=== PATIENT | male | born 1975 | race Caucasian/White ===

== ENCOUNTER → 2017-07-13 | Outpatient (CLI) | payer MEDICARE, MEDICAID ==
[2017-06-03 16:04] VITALS: BMI 33.3
[~2017-07-13] MED LIST: AMIT-106 PO; AMLO-1 PO; AMLO-96 PO; AMOX-559 PO; ASPI-715 PO; ASPI81TA94 PO; ATEN-1 PO; BACL-1 PO; BLOO-1511 MC; BUTA1CAP4 PO; BUTNAS NS; CLA500 PO; CLIN300C99 PO; CLON-1 PO; CLON-327 PO; CLON-329 PO; CLON0.3T35 PO; CLON1PAT20 PO; CYC10 PO; CYCL10TA29 PO; DIA5 PO; DIAZ-305 PO; DIAZ-311 PO; DIP25 PO; DIPH-740 PO; ENOX100D5 SQ; ESCI10TA8 PO; FAMC500T19 PO; FEN100TPT TD; FENT-90 TD; FURO40TA35 PO; GAB100 PO; HCTZ25 PO; HYDR-3140 PO; HYDR12.561 PO; HYDR25TA66 PO; IBU600 PO; IBU800 PO; IBUP100T52 PO; IBUP200C71 PO; IBUP600T22 PO; INDO-1 PO; INSU100I28 SQ; INSU100I30 SQ; KET10 PO; LANC-165; LANS30CA63 PO; LIDO700A25 TP; LISI-353 PO; LISI-368 PO; LISI-374 PO; LOR5 PO; METF-410 PO; METH4TAB57 PO; METH4TAB66 PO; METO-1 PO; METO-253 PO; METO-259 PO; METO25TA93 PO; METO50TA19 PO; METXR500 PO; MORS15 PO; NAPR500T75 PO; NEED-498 MC; NO RTN MEDS; OND4 PO; ONDA4TAB PO; ONDA4TAB97 PO; OXY10 PO; OXYC-823 PO; OXYC1TAB54 PO; OXYC20TA99 PO; OXYC30TA79 PO; OXYC5CAP21 PO; OXYC5TAB65 PO; PER PO; POTA20TA10; PRE20 PO; PRED20TA6 PO; PRO25 PO; PROM-110 PO; PROP20TA56 PO; RANI-324 PO; ROBC PO; STADOL IH; TAMS0.4C25 PO; TIZA2CAP3 PO; TRAM-420 PO; TRAM-627 PO; TRAZ-156 PO; VAL80 PO; WARF-18 PO; [UNRECOGNIZED DRUG - REMARK]
== END ==
LOC: LAB 15:11
DX: E11.9 Type 2 diabetes mellitus without complications (principal)
CPT/HCPCS: 36415; 82310; 82374; 82435; 82565; 82947; 84132; 84295; 84520; 84681; 85027

== ENCOUNTER 2017-12-06 15:43 | Emergency (ER) | payer MEDICARE, MEDICAID ==
[2017-06-03 16:04] VITALS: Wt 95.8 kg
[~2017-12-06 15:43] MED LIST changes: -METF-410 PO; +METF-411 PO; -RANI-324 PO; +RANI-366 PO; -WARF-18 PO; +WARF5TAB23 PO
--- NOTE | 2017-12-06 15:55 | ER Report ---
History and Physical Time Seen By MD: 15:55 Hx. of Stated Complaint: N/V X 4 DAYS HPI/ROS CHIEF COMPLAINT: Nausea, vomiting 4 days HISTORY OF PRESENT ILLNESS: 42-year-old male patient presents to emergency room with complaint of nausea and vomiting for the past 4 days. Patient states that he's felt some burning in his chest and then has had nausea with occasional vomiting. Patient states that he's not had any fevers or chills. He states he is not having any chest pain. Patient states that he has taken any medication for this. Patient states he is not had anything like this previously. REVIEW OF SYSTEMS: Respiratory: No cough, no dyspnea. Cardiovascular: No chest pain, no palpitations. Gastrointestinal: As noted above Musculoskeletal: No back pain. Allergies: Coded Allergies: diclofenac (Verified Allergy, Mild, HYPERGLYCEMIA , 12/06/17) cortisone (Verified Allergy, Unknown, 12/06/17) acetaminophen (Verified Adverse Reaction, Intermediate, MAKES HEADACHES WORSE, 11/14/16) Home Meds Active Scripts Clarithromycin (CLARITHROMYCIN) 500 Mg Tablet, 500 MG PO BID, #28 TAB Prov:KADI DICKENS [facility] 12/06/17 Amoxicillin 500 Mg Tab (AMOXICILLIN 500 MG TAB) 500 Mg Tablet, 1 TAB PO BID, # 28 TAB Prov:KADI DICKENS 12/06/17 Omeprazole (OMEPRAZOLE) 40 Mg Capsule.dr, 40 MG PO QDAY, #30 CAP Prov:KADI DICKENS [facility] 12/06/17 Ondansetron (ZOFRAN ODT) 4 Mg Tab.rapdis, 4 MG PO Q6H Y for NAUSEA/VOMITING, # 20 TAB.KWESI Prov:KADI DICKENSP 12/06/17 Insulin Lispro 100 Un/Ml Pen (HUMALOG 3 ML PEN) 100 Unit/1 Ml Insuln.pen, 3 UNIT SQ TIDAC, #3 ML Prov:ELVIS OLEARY DO 06/04/17 Lancets (Blood Lancets) 30 Gauge Each, EACH, #100 Prov:ELVIS OLEARY DO 06/04/17 Blood Sugar Diagnostic (GLUCOSE TEST STRIP) 1 Each Strip, 1 EACH MC QID, #100 STRIP Prov:ELVIS OLEARY DO 06/04/17 [employer], Insulin Disposable (INSULIN PEN NEEDLE) 1 Each Dis.needle, EACH MC QID , #100 Prov:ELVIS OLEARY DO 06/04/17 Insulin Glargine 100 Un/Ml Pen (LANTUS SOLOSTAR PEN) 100 Unit/1 Ml Insuln.pen, 20 UNIT SQ QHS, #3 ML Prov:ELVIS OLEARY DO 06/04/17 Metoprolol Succinate (METOPROLOL SUCCINATE) 50 Mg Tab.er.24h, 1 TAB PO QDAY, # 90 TAB 1 Refill Prov:MAGED BILLINGS MD 11/04/16 Reported Medications Clonidine Hcl (CLONIDINE HCL) 0.2 Mg Tablet, 0.4 MG PO DAILY Y for HTN, TAB May take a third dose of clonidine 0.4 mg daily as needed (for a total dose of 0.4 mg TID) 06/04/17 Clonidine Hcl (CLONIDINE HCL) 0.2 Mg Tablet, 0.4 MG PO BID, TAB 06/04/17 Amitriptyline Hcl (AMITRIPTYLINE HCL) 25 Mg Tablet, 50 MG PO QHS, #10 TAB 05/31/17 Oxycodone Hcl (OXYCONTIN) 20 Mg Tab.er.12h, 20 MG PO 5XD, TAB 05/31/17 Hydrochlorothiazide (HYDROCHLOROTHIAZIDE) 12.5 Mg Tablet, 1 TAB PO BID, TAB 05/31/17 Lisinopril (LISINOPRIL) 40 Mg Tablet, 40 MG PO BID, TAB 05/31/17 Tizanidine Hcl (TIZANIDINE HCL) 2 Mg Capsule, 4 MG PO four times daily, CAPSULE 03/26/17 Ibuprofen (IBUPROFEN) 600 Mg Tablet, 1 TAB PO Q6H Y for PAIN, TAB 11/14/16 Aspirin (ASPIRIN) 81 Mg Tab.chew, 81 MG PO QDAY, TAB.CHEW TAKE 1 TABLET BY MOUTH EVERY DAY 08/10/14 Past Medical/Surgical History Patient has a past medical history of migraines, [place], DVT 3, hypertension, pneumonia, COPD, herniated disc and low back, arthritis, back pain, diabetes. Patient has a surgical history of sinus surgery, shoulder surgery 2, hip replacement 2, heart catheter. Patient has a family medical history of diabetes, stroke, CAD, cancer. Hx Smoking: Yes Smoking Status: Former Smoker Exposure to Second Hand Smoke?: No Hx Substance Use Disorder: No Hx Alcohol Use: No Constitutional Vital Sign - Last 24 Hours 6/09/2012/06/17 12/06/17 12/06/17 15:46 16:00 16:15 16:30 Temp 98.9 Pulse 114 114 106 101 Resp 18 14 8 B/P (MAP) 149/112 165/135 (145) 145/119 (128) 161/108 (125) Pulse Ox 94 92 91 90 O2 Delivery Room Air 12/06/17 12/06/17 12/06/17 12/06/17 16:45 17:00 17:15 17:30 Pulse 101 100 105 106 Resp 10 13 10 6 B/P (MAP) 140/103 (115) 165/117 (133) 169/105 (126) Pulse Ox 87 91 91 90 12/06/17 12/06/17 12/06/17 17:45 18:00 18:09 Pulse 112 110 Resp 9 10 B/P (MAP) 149/122 (131) 149/88 (108) 150/127 (135) Pulse Ox 93 93 Intake and Output 12/06/17 12/06/17 12/07/17 14:59 22:59 06:59 Intake Total 1000 ml Balance 1000 ml Physical Exam General Appearance: The patient is alert, has no immediate need for airway protection and no current signs of toxicity. Respiratory: Chest is non tender, lungs are clear to auscultation. Cardiac: regular rate and rhythm Gastrointestinal: Abdomen is soft and mildly tender throughout, no masses, bowel sounds normal. Musculoskeletal: Neck: Neck is supple and non tender. Extremities have full range of motion and are non tender. Skin: No rashes or lesions. DIFFERENTIAL DIAGNOSIS: After history and physical exam differential diagnosis was considered for nausea and vomiting including but not limited to gastroenteritis, gastritis, appendicitis, and medication side effect. Medical Decision Making Data Points Result Diagram: 12/06/17 1600 12/06/17 1600 Laboratory Hematology Test 12/06/17 16:00 12/06/17 17:15 12/06/17 17:54 Red Blood Count 5.57 M/uL (4.00-5.60) Mean Corpuscular Volume 87.1 fL (80.0-96.0) Mean Corpuscular Hemoglobin 30.6 pg (26.0-33.0) Mean Corpuscular Hemoglobin Concent 35.2 g/dL (32.0-36.0) Red Cell Distribution Width 13.1 % (11.5-14.5) Mean Platelet Volume 10.4 fL (7.2-11.1) Neutrophils (%) (Auto) 53.5 % (39.4-72.5) Lymphocytes (%) (Auto) 34.8 % (17.6-49.6) Monocytes (%) (Auto) 9.6 % (4.1-12.4) Eosinophils (%) (Auto) 0.9 % (0.4-6.7) Basophils (%) (Auto) 1.2 % (0.3-1.4) Nucleated RBC Relative Count (auto) 0.1 /100WBC Neutrophils # (Auto) 6.0 K/uL (2.0-7.4) Lymphocytes # (Auto) 3.9 K/uL (1.3-3.6) Monocytes # (Auto) 1.1 K/uL (0.3-1.0) Eosinophils # (Auto) 0.1 K/uL (0.0-0.5) Basophils # (Auto) 0.1 K/uL (0.0-0.1) Nucleated RBC Absolute Count (auto) 0.02 K/uL Erythrocyte Sedimentation Rate 35 mm/HOUR (0-15) Urine Color Straw Urine Clarity Clear Urine pH 6.0 pH (4.8-9.5) Urine Specific [place] 1.030 Urine Protein Negative mg/dL (NEGATIVE) Urine Glucose (UA) 500 mg/dL (NEGATIVE) Urine Ketones 20 mg/dL (NEGATIVE) Urine Blood Negative (NEGATIVE) Urine Nitrite Negative (NEGATIVE) Urine Bilirubin Negative (NEGATIVE) Urine Urobilinogen Negative mg/dL (0.2-1.9) Urine Leukocyte Esterase Negative (NEGATIVE) Urine RBC <1 /HPF (0-2/HPF) Urine WBC 1 /HPF (0-5/HPF) Urine Squamous Epithelial Cells None /LPF (</=FEW) Urine Bacteria Negative /HPF (NONE-FEW) Urine Mucus None /HPF (NONE-FEW) Sodium Level 130 mmol/L (137-145) Potassium Level 3.6 mmol/L (3.5-5.0) Chloride Level 88 mmol/L (98-107) Carbon Dioxide Level 23 mmol/L (22-30) Blood Urea Nitrogen 26 mg/dl (9-21) Creatinine 1.00 mg/dl (0.66-1.25) Glomerular Filtration Rate Calc > 60.0 Random Glucose 509 mg/dl (75-110) Osmolality 300 mOSM/K (275-295) Calcium Level 9.8 mg/dl (8.4-10.2) Total Bilirubin 1.0 mg/dl (0.2-1.3) Aspartate Amino Transf (AST/SGOT) 35 U/L (0-35) Alanine Aminotransferase (ALT/SGPT) 18 U/L (0-56) Alkaline Phosphatase 121 U/L (0-126) Total Protein 8.1 gm/dl (6.3-8.2) Albumin 4.8 g/dl (3.5-5.0) Amylase Level 78 U/L (0-110) Lipase 59 U/L (23-300) Urine Opiates Screen Positive Urine Barbiturates Screen Negative Ur Tricyclic Antidepressants Screen Negative Urine Phencyclidine Screen Negative Urine Amphetamines Screen Negative Urine Benzodiazepines Screen Negative Urine Cocaine Screen Negative Urine Cannabinoids Screen Negative Acetone, Qualitative Negative Helicobacter pylori IgG Antibody Positive (NEGATIVE) Blood Gas Puncture Site Left radial Blood Gas Patient Temperature Unknown DEGREES Arterial Blood pH 7.44 (7.35-7.45) Arterial Blood Partial Pressure CO2 39 mmHg (32-37) Arterial Blood Partial Pressure O2 58 mmHg (60-80) Arterial Blood HCO3 26 mmol/L (20-26) Arterial Blood Oxygen Saturation 90 % (92-100) Arterial Blood Base Excess 2.0 mmol/L [place] Test Acceptable Oxygen Liters/Minute Room air Whole Blood Glucose 376 mg/DL (75-110) Chemistry Test 12/06/17 16:00 12/06/17 17:15 12/06/17 17:54 White Blood Count 11.3 k/uL (4.5-11.0) Red Blood Count 5.57 M/uL (4.00-5.60) Hemoglobin 17.1 g/dL (14.0-18.0) Hematocrit 48.5 % (42.0-52.0) Mean Corpuscular Volume 87.1 fL (80.0-96.0) Mean Corpuscular Hemoglobin 30.6 pg (26.0-33.0) Mean Corpuscular Hemoglobin Concent 35.2 g/dL (32.0-36.0) Red Cell Distribution Width 13.1 % (11.5-14.5) Platelet Count 279 K/uL (150-450) Mean Platelet Volume 10.4 fL (7.2-11.1) Neutrophils (%) (Auto) 53.5 % (39.4-72.5) Lymphocytes (%) (Auto) 34.8 % (17.6-49.6) Monocytes (%) (Auto) 9.6 % (4.1-12.4) Eosinophils (%) (Auto) 0.9 % (0.4-6.7) Basophils (%) (Auto) 1.2 % (0.3-1.4) Nucleated RBC Relative Count (auto) 0.1 /100WBC Neutrophils # (Auto) 6.0 K/uL (2.0-7.4) Lymphocytes # (Auto) 3.9 K/uL (1.3-3.6) Monocytes # (Auto) 1.1 K/uL (0.3-1.0) Eosinophils # (Auto) 0.1 K/uL (0.0-0.5) Basophils # (Auto) 0.1 K/uL (0.0-0.1) Nucleated RBC Absolute Count (auto) 0.02 K/uL Erythrocyte Sedimentation Rate 35 mm/HOUR (0-15) Urine Color Straw Urine Clarity Clear Urine pH 6.0 pH (4.8-9.5) Urine Specific [place] 1.030 Urine Protein Negative mg/dL (NEGATIVE) Urine Glucose (UA) 500 mg/dL (NEGATIVE) Urine Ketones 20 mg/dL (NEGATIVE) Urine Blood Negative (NEGATIVE) Urine Nitrite Negative (NEGATIVE) Urine Bilirubin Negative (NEGATIVE) Urine Urobilinogen Negative mg/dL (0.2-1.9) Urine Leukocyte Esterase Negative (NEGATIVE) Urine RBC <1 /HPF (0-2/HPF) Urine WBC 1 /HPF (0-5/HPF) Urine Squamous Epithelial Cells None /LPF (</=FEW) Urine Bacteria Negative /HPF (NONE-FEW) Urine Mucus None /HPF (NONE-FEW) Glomerular Filtration Rate Calc > 60.0 Osmolality 300 mOSM/K (275-295) Calcium Level 9.8 mg/dl (8.4-10.2) Total Bilirubin 1.0 mg/dl (0.2-1.3) Aspartate Amino Transf (AST/SGOT) 35 U/L (0-35) Alanine Aminotransferase (ALT/SGPT) 18 U/L (0-56) Alkaline Phosphatase 121 U/L (0-126) Total Protein 8.1 gm/dl (6.3-8.2) Albumin 4.8 g/dl (3.5-5.0) Amylase Level 78 U/L (0-110) Lipase 59 U/L (23-300) Urine Opiates Screen Positive Urine Barbiturates Screen Negative Ur Tricyclic Antidepressants Screen Negative Urine Phencyclidine Screen Negative Urine Amphetamines Screen Negative Urine Benzodiazepines Screen Negative Urine Cocaine Screen Negative Urine Cannabinoids Screen Negative Acetone, Qualitative Negative Helicobacter pylori IgG Antibody Positive (NEGATIVE) Blood Gas Puncture Site Left radial Blood Gas Patient Temperature Unknown DEGREES Arterial Blood pH 7.44 (7.35-7.45) Arterial Blood Partial Pressure CO2 39 mmHg (32-37) Arterial Blood Partial Pressure O2 58 mmHg (60-80) Arterial Blood HCO3 26 mmol/L (20-26) Arterial Blood Oxygen Saturation 90 % (92-100) Arterial Blood Base Excess 2.0 mmol/L [place] Test Acceptable Oxygen Liters/Minute Room air Whole Blood Glucose 376 mg/DL (75-110) Toxicology Test 12/06/17 16:00 Urine Opiates Screen Positive Urine Barbiturates Screen Negative Ur Tricyclic Antidepressants Screen Negative Urine Phencyclidine Screen Negative Urine Amphetamines Screen Negative Urine Benzodiazepines Screen Negative Urine Cocaine Screen Negative Urine Cannabinoids Screen Negative Acetone, Qualitative Negative Urinalysis Test 12/06/17 16:00 Urine Color Straw Urine Clarity Clear Urine pH 6.0 pH (4.8-9.5) Urine Specific [place] 1.030 Urine Protein Negative mg/dL (NEGATIVE) Urine Glucose (UA) 500 mg/dL (NEGATIVE) Urine Ketones 20 mg/dL (NEGATIVE) Urine Blood Negative (NEGATIVE) Urine Nitrite Negative (NEGATIVE) Urine Bilirubin Negative (NEGATIVE) Urine Urobilinogen Negative mg/dL (0.2-1.9) Urine Leukocyte Esterase Negative (NEGATIVE) Urine RBC <1 /HPF (0-2/HPF) Urine WBC 1 /HPF (0-5/HPF) Urine Squamous Epithelial Cells None /LPF (</=FEW) Urine Bacteria Negative /HPF (NONE-FEW) Urine Mucus None /HPF (NONE-FEW) EKG/Imaging Imaging EXAMINATION: Abdominal series HISTORY: Abdominal pain, nausea and vomiting. COMPARISON: Abdominal series from 06/02/2017. FINDINGS: PA upright view of the chest, 2 AP supine and 2 AP upright views of the abdomen are obtained. Lines/tubes: None. Bowel gas pattern: No distended loops of bowel, air fluid levels or free air. Moderate amount of stool in the colon. Soft tissues: Negative. Bony structures: Negative. Lungs: No focal consolidation or pleural effusion. Subcentimeter nodular opacity in the left upper lobe is unchanged since 2013. IMPRESSION: 1. No evidence of bowel obstruction or free air. 2. Moderate amount of stool in the colon could indicate constipation. 3. No radiographic evidence of acute cardiopulmonary disease. Report Dictated By: Zully Schulte MD at 12/06/2017 4:36 PM Report E-Signed By: Zully Schulte MD at 12/06/2017 4:42 PM ED Course/Re-evaluation ED Course Patient was admitted to exam room, history and physical were obtained. Differential diagnoses were considered. On examination patient has tenderness throughout his abdomen, bowel sounds are active. A CBC, CMP, acute abdominal x- ray was done as well as urinalysis. Patient had a normal white count, however he did have a elevated at sugar of 500. Patient was treated with a liter of normal saline, 10 units of insulin subcutaneous. On reevaluation approximately 30 minutes later patient had a blood sugar of 460s. Patient is treated with 10 additional units of insulin IV. On reevaluation patient was down in the 300s. Patient states he's feeling ready to go. We did also check a H. pylori test. That did come back positive. We'll go ahead and start the patient on triple therapy. He is to follow-up with his primary care provider. Patient was also given a prescription of Zofran. I discussed this with the patient who verbalized understanding and agreement with plan. Decision to Disposition Date: Dec 06, 2017 Decision to Disposition Time: 18:04 Depart Departure Latest Vital Signs Vital Signs Date Time Temp Pulse Resp B/P (MAP) Pulse Ox O2 Delivery O2 Flow Rate FiO2 12/06/17 18:09 150/127 (135) 12/06/17 18:00 110 10 93 12/06/17 15:46 98.9 Room Air Impression: Primary Impression: H. pylori infection Additional Impression: Hyperglycemia Condition: Improved Disposition: HOME OR SELF-CARE Referrals: MAGED BILLINGS MD (PCP) New Scripts Clarithromycin (CLARITHROMYCIN) 500 Mg Tablet 500 MG PO BID, #28 TAB Prov: KADI DICKENS 12/06/17 Amoxicillin 500 Mg Tab (AMOXICILLIN 500 MG TAB) 500 Mg Tablet 1 TAB PO BID, #28 TAB Prov: KADI DICKENS 12/06/17 Omeprazole (OMEPRAZOLE) 40 Mg Capsule.dr 40 MG PO QDAY, #30 CAP Prov: KADI DICKENS 12/06/17 Ondansetron (ZOFRAN ODT) 4 Mg Tab.rapdis 4 MG PO Q6H Y for NAUSEA/VOMITING, #20 TAB.KWESI Prov: KADI DICKENS 12/06/17 Patient Instructions: Helicobacter Pylori (ED) Additional Instructions: Increase fluid intake. Watch your blood sugar more closely. Follow up with your primary care provider in the next week. Return to the ER if condition worsens. Limit activity by pain. Try a bland diet for the next 2-3 days. Problem Qualifiers KADI DICKENS Dec 06, 2017 15:54
[2017-12-06] MEDS ORDERED: NS(*) 0.9% 1000 ML BAG 1,000 ML IV ONE (16:03)
[2017-12-06] MEDS ORDERED: ONDANSETRON 4 MG/2 ML VIAL IVP ONE (16:05)
[2017-12-06 16:12] LABS: PLATELET COUNT, AUTOMATED 279 K/uL (150-450)
[2017-12-06] MEDS ORDERED: INSU HUM REG 100 U/ML(ER ONLY) 10 ML VIAL SUBQ ONE (16:25)
--- NOTE | 2017-12-06 16:46 | RADIOLOGY IMAGING REPORT ---
FACILITY: [facility] PATIENT NAME: Tyson Ricardo : 1975 MR: [id number] V: [id number] EXAM DATE: ORDERING PHYSICIAN: KADI DICKENS TECHNOLOGIST: Location: [facility] [place] Patient: Tyson Ricardo : 1975 Visit/Account:[id number] Date of Sevice: 12/06/2017 EXAMINATION: Abdominal series HISTORY: Abdominal pain, nausea and vomiting. COMPARISON: Abdominal series from 06/02/2017. FINDINGS: PA upright view of the chest, 2 AP supine and 2 AP upright views of the abdomen are obtaine d. Lines/tubes: None. Bowel gas pattern: No distended loops of bowel, air fluid levels or free air. Moderate amount of sto ol in the colon. Soft tissues: Negative. Bony structures: Negative. Lungs: No focal consolidation or pleural effusion. Subcentimeter nodular opacity in the left upper l obe is unchanged since 2013. IMPRESSION: 1. No evidence of bowel obstruction or free air. 2. Moderate amount of stool in the colon could indicate constipation. 3. No radiographic evidence of acute cardiopulmonary disease. Report Dictated By: Zully Schulte MD at 12/06/2017 4:36 PM Report E-Signed By: Zully Schulte MD at 12/06/2017 4:42 PM WSN:[id number]
[2017-12-06] MEDS ORDERED: INSU HUM REG 100 U/ML(ER ONLY) 10 ML VIAL IV ONE (17:15)
[2017-12-06] MEDS ORDERED: OMEP40CA48 PO (18:03)
[2017-12-06] MEDS ORDERED: ONDA4TAB PO (18:03)
[2017-12-06] MEDS ORDERED: CLAR-1 PO (18:03)
[2017-12-06] MEDS ORDERED: AMOX500T10 PO (18:03)
[2017-12-06] MEDS ORDERED: ONDANSETRON 4 MG ODT TH SL ONE (18:05)
[2017-12-06] MEDS ORDERED: AMOXICILLIN 500 MG CAP PO ONE (18:05)
[2017-12-06] MEDS ORDERED: PANTOPRAZOLE SOD 40 MG TABEC PO ONE (18:05)
[2017-12-06] MEDS ORDERED: CLARITHROMYCIN 500 MG TAB PO ONE (18:05)
[2017-12-06 18:09] VITALS: BP 150/127
== END 2017-12-06 18:19 | disposition home or self-care (01) ==
LOC: ER 15:46
DX: E11.65 Type 2 diabetes mellitus with hyperglycemia (principal); A04.8 Other specified bacterial intestinal infections
CPT/HCPCS: 36416; 36600; 74022; 80305; 81001; 82009; 82150; 82803; 82948; 83690; 83930; 85025; 85651; 86677; 96361; 96374; 99284; A9270; J2405; J7030; Q0162; 82040; 82247; 82310; 82374; 82435; 82565; 82947; 84075; 84132; 84155; 84295; 84450; 84460; 84520; J1815; S0119

== ENCOUNTER 2018-01-10 18:21 | Emergency (ER) | payer MEDICARE, MEDICAID ==
[2017-06-03 16:04] VITALS: Wt 96.7 kg
[~2018-01-10 18:21] MED LIST changes: +AMOX500T10 PO; +CLAR-1 PO; +OMEP40CA48 PO
--- NOTE | 2018-01-10 18:25 | ER Report ---
History and Physical Time Seen By : 18:25 HPI/ROS CHIEF COMPLAINT: Right lower extremity pain and swelling. History of DVT HISTORY OF PRESENT ILLNESS: 42-year-old male presents ambulatory to the ER. He notes swelling of his right lower extremity and pain up into his groin. Patient has a distant history of 3 previous DVTs. Patient recalls no traumatic event. He notes no recent travel, long car trips or plane rides. Patient's a insulin-dependent diabetic with previous DKA. Patient's previous records show ultrasounds dated right lower extremity 03/26/17 negative, 07/20/13>> Bilateral lower extremity is negative for DVT, 04/12/13>> Positive DVT in right upper extremity basilic vein. Patient notes no shortness of breath or chest pain. Allergies: Coded Allergies: diclofenac (Verified Allergy, Mild, HYPERGLYCEMIA , 12/06/17) cortisone (Verified Allergy, Unknown, 12/06/17) acetaminophen (Verified Adverse Reaction, Intermediate, MAKES HEADACHES WORSE, 11/14/16) Home Meds Active Scripts Omeprazole (OMEPRAZOLE) 40 Mg Capsule.dr, 40 MG PO QDAY, #30 CAP Prov:KADI DICKENS 12/06/17 Lancets (Blood Lancets) 30 Gauge Each, EACH, #100 Prov:ELVIS OLEARY DO 06/04/17 Blood Sugar Diagnostic (GLUCOSE TEST STRIP) 1 Each Strip, 1 EACH MC QID, #100 STRIP Prov:ELVIS OLEARY DO 06/04/17 [place], Insulin Disposable (INSULIN PEN NEEDLE) 1 Each Dis.needle, EACH MC QID , #100 Prov:ELVIS OLEARY DO 06/04/17 Insulin Glargine 100 Un/Ml Pen (LANTUS SOLOSTAR PEN) 100 Unit/1 Ml Insuln.pen, 20 UNIT SQ QHS, #3 ML Prov:ELVIS OLEARY DO 06/04/17 Metoprolol Succinate (METOPROLOL SUCCINATE) 50 Mg Tab.er.24h, 1 TAB PO QDAY, # 90 TAB 1 Refill Prov:MAGED BILLINGS MD 11/04/16 Reported Medications Insulin Aspart (NOVOLOG) 100 Unit/Ml Soln, SUBQ TID 01/10/18 Clonidine Hcl (CLONIDINE HCL) 0.2 Mg Tablet, 0.4 MG PO DAILY Y for HTN, TAB May take a third dose of clonidine 0.4 mg daily as needed (for a total dose of 0.4 mg TID) 06/04/17 Clonidine Hcl (CLONIDINE HCL) 0.2 Mg Tablet, 0.4 MG PO BID, TAB 06/04/17 Amitriptyline Hcl (AMITRIPTYLINE HCL) 25 Mg Tablet, 50 MG PO QHS, #10 TAB 05/31/17 Oxycodone Hcl (OXYCONTIN) 20 Mg Tab.er.12h, 20 MG PO 5XD, TAB 05/31/17 Hydrochlorothiazide (HYDROCHLOROTHIAZIDE) 12.5 Mg Tablet, 1 TAB PO BID, TAB 05/31/17 Lisinopril (LISINOPRIL) 40 Mg Tablet, 40 MG PO BID, TAB 05/31/17 Tizanidine Hcl (TIZANIDINE HCL) 2 Mg Capsule, 4 MG PO four times daily, CAPSULE 03/26/17 Aspirin (ASPIRIN) 81 Mg Tab.chew, 81 MG PO QDAY, TAB.CHEW TAKE 1 TABLET BY MOUTH EVERY DAY 08/10/14 Discontinued Reported Medications Ibuprofen (IBUPROFEN) 600 Mg Tablet, 1 TAB PO Q6H Y for PAIN, TAB 11/14/16 Discontinued Scripts Clarithromycin (CLARITHROMYCIN) 500 Mg Tablet, 500 MG PO BID, #28 TAB Prov:KADI DICKENS [facility] 12/06/17 Amoxicillin 500 Mg Tab (AMOXICILLIN 500 MG TAB) 500 Mg Tablet, 1 TAB PO BID, # 28 TAB Prov:KADI DICKENS [facility] 12/06/17 Ondansetron (ZOFRAN ODT) 4 Mg Tab.rapdis, 4 MG PO Q6H Y for NAUSEA/VOMITING, # 20 TAB.KWESI Prov:KADI DICKENS [facility] 12/06/17 Insulin Lispro 100 Un/Ml Pen (HUMALOG 3 ML PEN) 100 Unit/1 Ml Insuln.pen, 3 UNIT SQ TIDAC, #3 ML Prov:ELVIS OLEARY DO 06/04/17 Past Medical/Surgical History Patient has a past medical history of migraines, [place], DVT 3, hypertension, pneumonia, COPD, herniated disc and low back, arthritis, back pain, diabetes. Patient has a surgical history of sinus surgery, shoulder surgery 2, hip replacement 2, heart catheter. Patient has a family medical history of diabetes, stroke, CAD, cancer. Hx Smoking: Yes Reviewed Nurses Notes: Yes Old Medical Records Reviewed: Yes Hx Smoking: Yes Smoking Status: Former Smoker Exposure to Second Hand Smoke?: No Hx Substance Use Disorder: No Hx Alcohol Use: No Constitutional Vital Sign - Last 24 Hours 01/10/18 01/10/18 01/10/18 01/10/18 18:24 18:27 18:30 18:36 Temp 98.4 Pulse 102 102 Resp 18 B/P (MAP) 159/106 159/106 (123) 162/103 (122) Pulse Ox 93 92 O2 Delivery Room Air 01/10/18 01/10/18 01/10/18 01/10/18 18:51 18:56 18:57 19:00 Pulse 89 98 Resp 10 B/P (MAP) 155/116 (129) 172/102 (125) Pulse Ox 90 01/10/18 01/10/18 01/10/18 01/10/18 19:11 19:16 19:30 19:31 Pulse 97 98 Resp 10 7 16 B/P (MAP) 129/82 (98) Pulse Ox 92 94 53 01/10/18 01/10/18 01/10/18 01/10/18 19:46 20:00 20:01 20:16 Pulse 87 88 90 Resp 10 8 13 B/P (MAP) 140/91 (107) 01/10/18 20:54 Pulse 85 Resp 16 B/P (MAP) 148/88 (108) Pulse Ox 92 O2 Delivery Room Air Physical Exam Vital signs stable, afebrile, pulse ox normal General appearance: Alert no distress. Respiratory: Chest is non tender, lungs are clear to auscultation. Cardiac: Regular rate and rhythm Extremities: Examination of the right lower extremity reveals gross edema to the entire extremity compared to the left extremity. Is neurovascularly intact. There is tenderness to compression of the calf and palpation of the femoral vessels up into the groin. Clinically, this is suspicious for DVT. DIFFERENTIAL DIAGNOSIS: After history and physical exam differential diagnosis was considered for DVT, edema, cellulitis, arthritis, myositis Medical Decision Making EKG/Imaging Imaging Results: Ultrasound of the right lower extremity ultrasound venous Doppler was obtained. The results of the study are no evidence of DVT. The study was read by the radiologist. I viewed the images myself on the PACS system. ED Course/Re-evaluation ED Course Patient was admitted to an examination room. H&P was done. The differential diagnosis was considered. On clinical examination. Patient has right lower extremity swelling and pain. He has a known history of DVTs 3 in the past. Patient concerning may have a clot. An ultrasound is ordered. The some of the right lower extremity is unremarkable for evidence of DVT. Patient advised to conservative treatment plan. Patient advised ibuprofen 200 mg 3 tablets 3 times a day. Patient advised to elevate his leg and apply heat. He's also advised to wear compression stockings. Patient advised to follow-up with primary care if unimproved in 3-5 days. Patient also cautioned to continue on his daily aspirin for antiplatelet affect. Decision to Disposition Date: Jan 10, 2018 Decision to Disposition Time: 20:51 Depart Departure Latest Vital Signs Vital Signs Date Time Temp Pulse Resp B/P (MAP) Pulse Ox O2 Delivery O2 Flow Rate FiO2 01/10/18 20:54 85 16 148/88 (108) 92 Room Air 01/10/18 18:24 98.4 Impression: Primary Impression: Right leg swelling Additional Impression: Right leg pain Condition: Improved Disposition: HOME OR SELF-CARE Referrals: SHELLI CASTANEDA [employer] OPERATOR (PCP) Patient Instructions: Leg Pain (ED) Additional Instructions: Take ibuprofen 200 mg 3 tablets 3 times a day Elevate your leg Apply heating pad to the most painful areas Continue to take aspirin 325 mg per day Follow-up with your primary care doctor if unimproved in 3-5 days Problem Qualifiers PIERCE MAE DO Jan 10, 2018 18:25
[2018-01-10] MEDS ORDERED: NOVOLOG SUBQ (18:28)
--- NOTE | 2018-01-10 20:46 | RADIOLOGY IMAGING REPORT ---
FACILITY: [facility] - [place] PATIENT NAME: Tyson Ricardo : 1975 MR: [id number] V: [id number] EXAM DATE: ORDERING PHYSICIAN: PIERCE MAE TECHNOLOGIST: Location[place] [facility] [place] Patient: Tyson Ricardo : 1975 Visit/Account:[id number] Date of Sevice: 01/10/2018 VENOUS DOPP LOW RIGHT EXTREMITY HISTORY: Remote history of bilateral arm DVTs. Now with leg swelling and pain. Not on anticoagulants. COMPARISON STUDIES: 03/26/2017 and studies dating to 07/20/2013. FINDINGS: Grayscale compression, duplex and color Doppler interrogation of the right lower extremity deep veins from common femoral vein to proximal calf was performed. The greater saphenous vein in the ipsilater al proximal thigh was evaluated using similar technique. Imaging of the contralateral common femoral vein was obtained for comparison. Right lower extremity: Common femoral vein: Normal. Deep femoral vein: Normal. Femoral vein: Normal. Popliteal vein: Normal. Visualized deep calf veins: Normal. Greater saphenous vein in the proximal thigh: Normal. Popliteal fossa: Normal. Left common femoral vein: Normal. IMPRESSION: 1. There is no deep venous thrombosis of the right lower extremity. Report Dictated By: Emma Vazquez at 01/10/2018 8:37 PM Report E-Signed By: Emma Vazquez at 01/10/2018 8:43 PM WSN:[id number]
[2018-01-10 20:54] VITALS: BP 148/88
== END 2018-01-10 21:04 | disposition home or self-care (01) ==
LOC: ER 18:31
DX: M79.604 Pain in right leg (principal); M79.89 Other specified soft tissue disorders
CPT/HCPCS: 99284

== ENCOUNTER 2018-03-30 14:47 | Inpatient (IN) | payer MEDICARE, MEDICAID ==
[2017-06-03 16:04] VITALS: Ht 177.8 cm; Wt 97.1 kg
[~2018-03-30] VITALS: Ht 177.8 cm; Wt 97.1 kg
[~2018-03-30 14:47] MED LIST changes: +AMLO-111 PO; -AMLO-96 PO; +IBUP-136 PO; -IBUP200C71 PO; -INDO-1 PO; +INDO-21 PO; -METF-411 PO; +METF-450 PO; +NOVOLOG SUBQ; -TRAZ-156 PO; +TRAZ50TA34 PO; +VANCOMYCIN(*) 1 GM VIAL 2 GM in NS(*) 0.9% 250 ML BAG 250 ML IVPB ONE
--- NOTE | 2018-03-30 14:50 | ER Report ---
History and Physical Time Seen By MD: 14:50 HPI/ROS CHIEF COMPLAINT: Right arm erythema, cellulitis, fevers HISTORY OF PRESENT ILLNESS: Patient is a 43-year-old male here with complaints of right elbow and medial arm redness, fevers, pain and localized swelling in the setting of diabetes. She reports that on Thursday he was attempting to carry a large fish tank with a partner when he slipped and attempted to catch the tank along the side on the edges damaging his medial arms. On Thursday patient reported having increased pain of the right medial arm around the elbow and subsequently developing erythema, warmth to the touch and fever. Patient denies headache, blurred vision, chest pain, shortness breath, abdominal pain, dysuria, hematuria, diarrhea. REVIEW OF SYSTEMS: Constitutional: + fever, + chills. Eyes: No discharge. ENT: No sore throat. Cardiovascular: No chest pain, no palpitations. Respiratory: No cough, no shortness of breath. Gastrointestinal: No abdominal pain, no vomiting. Genitourinary: No hematuria. Musculoskeletal: No back pain, + right medial elbow pain with edema and erythema Skin: Erythema of the right medial arm from the elbow to the medial humors with tenderness on palpation Neurological: No headache. Allergies: Coded Allergies: diclofenac (Verified Allergy, Mild, HYPERGLYCEMIA , 03/30/18) cortisone (Verified Allergy, Unknown, 03/30/18) acetaminophen (Verified Adverse Reaction, Intermediate, MAKES HEADACHES WORSE, 03/30/18) Home Meds Active Scripts Lancets (Blood Lancets) 30 Gauge Each, EACH, #100 Prov:ELVIS OLEARY DO 06/04/17 Blood Sugar Diagnostic (GLUCOSE TEST STRIP) 1 Each Strip, 1 EACH QID, #100 STRIP Prov:ELVIS OLEARY DO 06/04/17 [place], Insulin Disposable (INSULIN PEN NEEDLE) 1 Each Dis.needle, EACH MC QID, #100 Prov:ELVIS OLEARY DO 06/04/17 Insulin Glargine 100 Un/Ml Pen (LANTUS SOLOSTAR PEN) 100 Unit/1 Ml Insuln.pen, 20 UNIT SQ QHS, #3 ML Prov:ELVIS OLEARY DO 06/04/17 Reported Medications Oxycodone Hcl 20 Mg Tab (OXYCODONE HCL 20 MG TAB) 20 Mg Tablet, 20 MG PO 5XD 03/30/18 Hydroxyzine Hcl (HYDROXYZINE HCL) 25 Mg Tablet, 25 MG PO BID 03/30/18 Insulin Aspart (NOVOLOG) 100 Unit/Ml Soln, SUBQ SS 01/10/18 Clonidine Hcl (CLONIDINE HCL) 0.2 Mg Tablet, 0.4 MG PO DAILY PRN for HTN, TAB May take a third dose of clonidine 0.4 mg daily as needed (for a total dose of 0.4 mg TID) 06/04/17 Clonidine Hcl (CLONIDINE HCL) 0.2 Mg Tablet, 0.4 MG PO BID, TAB 06/04/17 Hydrochlorothiazide (HYDROCHLOROTHIAZIDE) 12.5 Mg Tablet, 1 TAB PO BID, TAB 05/31/17 Lisinopril (LISINOPRIL) 40 Mg Tablet, 40 MG PO BID, TAB 05/31/17 Tizanidine Hcl (TIZANIDINE HCL) 2 Mg Capsule, 4 MG PO TID, CAPSULE 03/26/17 Aspirin (ASPIRIN) 81 Mg Tab.chew, 81 MG PO QDAY, TAB.CHEW TAKE 1 TABLET BY MOUTH EVERY DAY 08/10/14 Discontinued Reported Medications Amitriptyline Hcl (AMITRIPTYLINE HCL) 25 Mg Tablet, 50 MG PO QHS, #10 TAB 05/31/17 Oxycodone Hcl (OXYCONTIN) 20 Mg Tab.er.12h, 20 MG PO 6XD, TAB 05/31/17 Discontinued Scripts Omeprazole (OMEPRAZOLE) 40 Mg Capsule.dr, 40 MG PO QDAY, #30 CAP Prov:KADI DICKENS 12/06/17 Metoprolol Succinate (METOPROLOL SUCCINATE) 50 Mg Tab.er.24h, 1 TAB PO QDAY, #90 TAB 1 Refill Prov:MAGED BILLINGS MD 11/04/16 Hx Smoking: Yes Smoking Status: Former Smoker Exposure to Second Hand Smoke?: No Hx Substance Use Disorder: No Hx Alcohol Use: No Constitutional Vital Sign - Last 24 Hours 03/30/18 03/30/18 03/30/18 03/30/18 14:54 14:56 15:00 15:47 Temp 103.1 Pulse 128 120 125 Resp 18 B/P (MAP) 105/58 (74) 105/58 129/76 (93) Pulse Ox 96 95 O2 Delivery Room Air 03/30/18 03/30/18 03/30/18 16:00 16:17 16:30 Pulse 121 B/P (MAP) 129/88 (102) 132/76 (94) Pulse Ox 98 Physical Exam General Appearance: The patient is alert, has no immediate need for airway protection and no signs of toxicity. Moderate distress secondary to discomfort and pain Eyes: Pupils equal and round no pallor or injection. ENT, Mouth: Mucous membranes are moist. Respiratory: There are no retractions, lungs are clear to auscultation. Cardiovascular: Tachycardic Gastrointestinal: Abdomen is soft and non tender, no masses, bowel sounds normal. Neurological: No focal neurological deficits, neurovascularly intact distal to the edematous site of the right arm Skin: Erythematous and edematous and tender right medial arm from the elbow to the medial humerus Musculoskeletal: Neck is supple non tender. Right upper extremity is tender and swollen in the medial aspect from the elbow to the medial humerus DIFFERENTIAL DIAGNOSIS: After history and physical exam differential diagnosis was considered for sepsis, cellulitis, DVT, abscess, fracture Medical Decision Making Data Points Result Diagram: 03/30/18 1518 03/30/18 1518 Laboratory Hematology Test 03/30/18 15:18 03/30/18 15:49 Red Blood Count 4.94 M/uL (4.00-5.60) Mean Corpuscular Volume 85.9 fL (80.0-96.0) Mean Corpuscular Hemoglobin 28.8 pg (26.0-33.0) Mean Corpuscular Hemoglobin Concent 33.5 g/dL (32.0-36.0) Red Cell Distribution Width 12.8 % (11.5-14.5) Mean Platelet Volume 9.1 fL (7.2-11.1) Neutrophils (%) (Auto) 82.7 % (39.4-72.5) Lymphocytes (%) (Auto) 6.8 % (17.6-49.6) Monocytes (%) (Auto) 9.5 % (4.1-12.4) Eosinophils (%) (Auto) 0.1 % (0.4-6.7) Basophils (%) (Auto) 0.9 % (0.3-1.4) Nucleated RBC Relative Count (auto) 0.1 /100WBC Neutrophils # (Auto) 11.1 K/uL (2.0-7.4) Lymphocytes # (Auto) 0.9 K/uL (1.3-3.6) Monocytes # (Auto) 1.3 K/uL (0.3-1.0) Eosinophils # (Auto) 0.0 K/uL (0.0-0.5) Basophils # (Auto) 0.1 K/uL (0.0-0.1) Nucleated RBC Absolute Count (auto) 0.01 K/uL Prothrombin Time 13.9 seconds (12.0-14.4) Prothromb Time International Ratio 1.07 Activated Partial Thromboplast Time 26 seconds (23-35) Sodium Level 132 mmol/L (137-145) Potassium Level 3.8 mmol/L (3.5-5.0) Chloride Level 89 mmol/L (98-107) Carbon Dioxide Level 24 mmol/L (22-30) Blood Urea Nitrogen 19 mg/dl (9-21) Creatinine 0.80 mg/dl (0.66-1.25) Glomerular Filtration Rate Calc > 60.0 Random Glucose 437 mg/dl (75-110) Calcium Level 9.6 mg/dl (8.4-10.2) Total Bilirubin 0.9 mg/dl (0.2-1.3) Aspartate Amino Transf (AST/SGOT) 13 U/L (0-35) Alanine Aminotransferase (ALT/SGPT) 24 U/L (0-56) Alkaline Phosphatase 118 U/L (0-126) Total Protein 7.3 g/dl (6.3-8.2) Albumin 4.2 g/dl (3.5-5.0) Lactate 2.4 mmol/L (0.7-2.1) Chemistry Test 03/30/18 15:18 03/30/18 15:49 White Blood Count 13.4 k/uL (4.5-11.0) Red Blood Count 4.94 M/uL (4.00-5.60) Hemoglobin 14.2 g/dL (14.0-18.0) Hematocrit 42.4 % (42.0-52.0) Mean Corpuscular Volume 85.9 fL (80.0-96.0) Mean Corpuscular Hemoglobin 28.8 pg (26.0-33.0) Mean Corpuscular Hemoglobin Concent 33.5 g/dL (32.0-36.0) Red Cell Distribution Width 12.8 % (11.5-14.5) Platelet Count 235 K/uL (150-450) Mean Platelet Volume 9.1 fL (7.2-11.1) Neutrophils (%) (Auto) 82.7 % (39.4-72.5) Lymphocytes (%) (Auto) 6.8 % (17.6-49.6) Monocytes (%) (Auto) 9.5 % (4.1-12.4) Eosinophils (%) (Auto) 0.1 % (0.4-6.7) Basophils (%) (Auto) 0.9 % (0.3-1.4) Nucleated RBC Relative Count (auto) 0.1 /100WBC Neutrophils # (Auto) 11.1 K/uL (2.0-7.4) Lymphocytes # (Auto) 0.9 K/uL (1.3-3.6) Monocytes # (Auto) 1.3 K/uL (0.3-1.0) Eosinophils # (Auto) 0.0 K/uL (0.0-0.5) Basophils # (Auto) 0.1 K/uL (0.0-0.1) Nucleated RBC Absolute Count (auto) 0.01 K/uL Prothrombin Time 13.9 seconds (12.0-14.4) Prothromb Time International Ratio 1.07 Activated Partial Thromboplast Time 26 seconds (23-35) Glomerular Filtration Rate Calc > 60.0 Calcium Level 9.6 mg/dl (8.4-10.2) Total Bilirubin 0.9 mg/dl (0.2-1.3) Aspartate Amino Transf (AST/SGOT) 13 U/L (0-35) Alanine Aminotransferase (ALT/SGPT) 24 U/L (0-56) Alkaline Phosphatase 118 U/L (0-126) Total Protein 7.3 g/dl (6.3-8.2) Albumin 4.2 g/dl (3.5-5.0) Lactate 2.4 mmol/L (0.7-2.1) Coagulation Test 03/30/18 15:18 Prothrombin Time 13.9 seconds Prothromb Time International Ratio 1.07 Activated Partial Thromboplast Time 26 seconds EKG/Imaging Imaging Examination: Right upper extremity venous duplex sonogram Comparisons: None. HISTORY: Possible clot with cellulitis. FINDINGS: The venous structures of the right upper extremity were evaluated from the right forearm through the right internal jugular vein. There is echogenic material with noncompressibility of the right basilic vein with no flow noted within the right basilic vein compatible with underlying thrombus. Remaining venous structures of the right upper extremity are within normal limits except for thrombus within a superficial vein along the distal aspects of the right forearm. IMPRESSION: 1. Occlusive thrombus involving the right basilic vein. ED Course/Re-evaluation ED Course Patient is a 43-year-old male here with complaints of right upper extremity swelling, erythema, tenderness on palpation and fever. Sepsis workup was initiated, patient was given IV fluid bolus, cefepime, vancomycin, Toradol, f entanyl. Bedside ultrasound, noncompressible basilic vein which was confirmed by formal ultrasound. Blood cultures were collected. Patient was started on Lovenox. I discussed the patient and Dr. Bhakta who admitted the patient for further treatment of cellulitis, DVT. Decision to Disposition Date: Mar 30, 2018 Decision to Disposition Time: 17:30 Depart Departure Latest Vital Signs Vital Signs Date Time Temp Pulse Resp B/P (MAP) Pulse Ox O2 Delivery O2 Flow Rate FiO2 03/30/18 16:30 132/76 (94) 03/30/18 16:17 121 98 03/30/18 14:56 103.1 18 Room Air Impression: Primary Impression: Cellulitis of right upper extremity Additional Impressions: Dehydration DVT of upper extremity (deep vein thrombosis) Condition: Improved Disposition: Admitted from ER Referrals: SHELLI CASTANEDA NP (PCP) Problem Qualifiers MIRIAM SCHREIBER DO Mar 30, 2018 14:50
[2018-03-30] MEDS ORDERED: NS 0.9% IV ONE (15:20)
[2018-03-30] MEDS ORDERED: VANCOMYCIN 1 GM ADDVIAL 1 GM in NS(*) 0.9% 250 ML ADDVAN BAG 250 ML IVPB ONE (15:20)
[2018-03-30] MEDS ORDERED: CEFEPIME HCL 1 GM VIAL IVP ONE (15:20)
[2018-03-30 15:35] LABS: PLATELET COUNT, AUTOMATED 235 K/uL (150-450)
[2018-03-30] MEDS ORDERED: CEFEPIME HCL 2 GM VIAL 2 GM in NS(*) 0.9% 100 ML ADDVANT BAG 100 ML IVPB ONE (15:40)
[2018-03-30 15:42] LABS: INR 1.07
[2018-03-30] MEDS ORDERED: ENOXAPARIN 100 MG/ML SYR SC SCH (15:45)
[2018-03-30] MEDS ORDERED: fentaNYL CITR 100 MCG/2 ML AMP IVP ONE (16:20)
[2018-03-30] MEDS ORDERED: HYDR-4225 PO (16:26)
--- NOTE | 2018-03-30 16:37 | RADIOLOGY IMAGING REPORT ---
FACILITY: [facility] PATIENT NAME: Tyson Ricardo : 1975 MR: [id number] V: [id number] EXAM DATE: ORDERING PHYSICIAN: MIRIAM SCHREIBRE TECHNOLOGIST: Location: [facility] Patient: Tyson Ricardo : 1975 Visit/Account:[id number] Date of Sevice: 03/30/2018 Examination: Right upper extremity venous duplex sonogram Comparisons: None. HISTORY: Possible clot with cellulitis. FINDINGS: The venous structures of the right upper extremity were evaluated from the right forearm through the right internal jugular vein. There is echogenic material with noncompressibility of the right basilic vein with no flow noted with in the right basilic vein compatible with underlying thrombus. Remaining venous structures of the right upper extremity are within normal limits except for thrombus within a superficial vein along the distal aspects of the right forearm. IMPRESSION: 1. Occlusive thrombus involving the right basilic vein. Results were discussed with MIRIAM SCHREIBER at 03/30/2018 4:31 PM. Report Dictated By: Napoleon Lopez MD at 03/30/2018 4:27 PM Report E-Signed By: Napoleon Lopez MD at 03/30/2018 4:33 PM [id number]
[2018-03-30] MEDS: KETOROLAC 30 MG/ML VIAL IVP ONE ×2 (17:15→17:25)
[2018-03-30 17:36] VITALS: BP 129/84
[2018-03-30] MEDS ORDERED: NS(*) 0.9% 1000 ML BAG 1,000 ML IV PRN (17:50)
[2018-03-30] MEDS ORDERED: OXYC20TA61 PO (17:56)
[2018-03-30] MEDS: oxyCODONE HCL 5 MG CAP PO PRN (18:10)
--- NOTE | 2018-03-30 18:32 | History & Physical ---
History of Present Illness Chief Complaint Fever/arm pain History of Present Illness 43yo male with PMHx significant for type 2 DM on insulin, previous RUE DVT, chronic pain due to degenerative disc disease/degenerative joint disease. He reports "catching" a fish tank between his two forearms a few days ago. He denied any skin breaks. He developed ecchymoses over his right forearm, which was followed by increasing pain and redness over ulnar aspect of proximal right forearm and distal right upper arm. He then began to have spiking fevers early today (up to 103F). He was evaluated in the ER and found to have fever, elevated WBC count, DVT involving right basilic vein. He was recommended for admission. History Problems: (1) Degenerative disc disease, lumbar Status: Chronic (2) History of lumbosacral spine surgery Status: Resolved (3) Hyperlipidemia Status: Chronic (4) Obesity Status: Chronic (5) Gout Status: Chronic (6) DVT of upper extremity (deep vein thrombosis) Status: Acute (7) Anxiety Status: Chronic (8) Degenerative arthritis of hip Status: Chronic (9) Chronic pain Status: Chronic (10) HTN (hypertension) Status: Chronic (11) Nephrolithiasis Status: Resolved (12) History of hip surgery Status: Resolved (13) Type 2 diabetes mellitus Status: Chronic Home Meds Active Scripts Lancets (Blood Lancets) 30 Gauge Each, EACH, #100 Prov:ELVIS OLEARY DO 06/04/17 Blood Sugar Diagnostic (GLUCOSE TEST STRIP) 1 Each Strip, 1 EACH MC QID, #100 STRIP Prov:ELVIS OLEARY DO 06/04/17 [place], Insulin Disposable (INSULIN PEN NEEDLE) 1 Each Dis.needle, EACH MC QID, #100 Prov:ELVIS OLEARY DO 06/04/17 Insulin Glargine 100 Un/Ml Pen (LANTUS SOLOSTAR PEN) 100 Unit/1 Ml Insuln.pen, 20 UNIT SQ QHS, #3 ML Prov:ELVIS OLEARY DO 06/04/17 Reported Medications Oxycodone Hcl 20 Mg Tab (OXYCODONE HCL 20 MG TAB) 20 Mg Tablet, 20 MG PO 5XD 03/30/18 Hydroxyzine Hcl (HYDROXYZINE HCL) 25 Mg Tablet, 25 MG PO BID 03/30/18 Insulin Aspart (NOVOLOG) 100 Unit/Ml Soln, SUBQ SS 01/10/18 Clonidine Hcl (CLONIDINE HCL) 0.2 Mg Tablet, 0.4 MG PO DAILY PRN for HTN, TAB May take a third dose of clonidine 0.4 mg daily as needed (for a total dose of 0.4 mg TID) 06/04/17 Clonidine Hcl (CLONIDINE HCL) 0.2 Mg Tablet, 0.4 MG PO BID, TAB 06/04/17 Hydrochlorothiazide (HYDROCHLOROTHIAZIDE) 12.5 Mg Tablet, 1 TAB PO BID, TAB 05/31/17 Lisinopril (LISINOPRIL) 40 Mg Tablet, 40 MG PO BID, TAB 05/31/17 Tizanidine Hcl (TIZANIDINE HCL) 2 Mg Capsule, 4 MG PO TID, CAPSULE 03/26/17 Aspirin (ASPIRIN) 81 Mg Tab.chew, 81 MG PO QDAY, TAB.CHEW TAKE 1 TABLET BY MOUTH EVERY DAY 08/10/14 Discontinued Reported Medications Amitriptyline Hcl (AMITRIPTYLINE HCL) 25 Mg Tablet, 50 MG PO QHS, #10 TAB 05/31/17 Oxycodone Hcl (OXYCONTIN) 20 Mg Tab.er.12h, 20 MG PO 6XD, TAB 05/31/17 Discontinued Scripts Omeprazole (OMEPRAZOLE) 40 Mg Capsule.dr, 40 MG PO QDAY, #30 CAP Prov:KADI DICKENS 12/06/17 Metoprolol Succinate (METOPROLOL SUCCINATE) 50 Mg Tab.er.24h, 1 TAB PO QDAY, #90 TAB 1 Refill Prov:MAGED BILLINGS MD 11/04/16 Allergies: Coded Allergies: diclofenac (Verified Allergy, Mild, HYPERGLYCEMIA , 03/30/18) cortisone (Verified Allergy, Unknown, 03/30/18) acetaminophen (Verified Adverse Reaction, Intermediate, MAKES HEADACHES WORSE, 03/30/18) Patient History: FH: GA (myocardial infarction) MOTHER, , Age:42 FH: cancer FH: diabetes mellitus FH: heart disease FH: hypertension Other Social/Family Hx He is disabled Hx Smoking: Yes Smoking Status: Former Smoker Exposure to Second Hand Smoke?: No Caffeine Intake: Coffee, Soda Caffeine/Cups Per Day: 3 CUPS COFFEE, 1 POP Hx Alcohol Use: No Hx Substance Use Disorder: No Social Drug Use: Never Review of Systems Constitutional: Fever, Chills Neurological: No Syncope Eyes: No Vision Change, No Loss of Vision ENT: No Hearing Loss Cardiovascular: No Chest Pain, No Palpitations Respiratory: No Shortness of Breath, No Cough Gastrointestinal: Nausea; No Vomiting, No Diarrhea Genitourinary: No Dysuria, No Hematuria Musculoskeletal: Pain Exam Vital Signs Vital Signs Date Time Temp Pulse Resp B/P (MAP) Pulse Ox O2 Delivery O2 Flow Rate FiO2 03/30/18 17:57 95 Room Air 03/30/18 17:36 101.7 121 18 129/84 (99) General Appearance: Alert, Awake Neuro: Other (No focal deficits noted) Eyes: PERRLA ENT: Oropharynx Clear Neck: No Masses Cardiovascular: Regular Rate and Rhythm Respiratory: Clear to Auscultation Chest: No Tenderness GI: Abd Soft and Non-Tender : No CVA Tenderness Musculoskeletal: Other (Right upper extremity with edema from mid-humeral area through mid-forearm with associated erythema in medial aspect of proximal fo rearm and distal upper arm. No open areas or drainage. Significant tenderness with palpation. He has slightly limited flexion will full pronation/supination at the elbow.) Integumentary: Scaly / Dry Skin Psych: Alert & Oriented X3 Medical Decision Making Data Points Result Diagram: 03/30/18 1518 03/30/18 1518 Item Value Date Time Urine Mucus None /HPF 03/30/18 1715 Urine Bacteria Negative /HPF 03/30/18 1715 Urine Squamous Epithelial Cells None /LPF 03/30/18 1715 Urine WBC <1 /HPF 03/30/18 1715 Urine RBC None /HPF 03/30/18 1715 Urine Leukocyte Esterase Negative 03/30/18 1715 Urine Urobilinogen 0.2 mg/dL 03/30/18 1715 Urine Bilirubin Negative 03/30/18 1715 Urine Nitrite Negative 03/30/18 1715 Urine Blood Negative 03/30/18 1715 Urine Ketones Negative mg/dL 03/30/18 1715 Urine Glucose (UA) 1000 mg/dL 03/30/18 1715 Urine Protein Negative mg/dL 03/30/18 1715 Urine Specific [place] 1.010 03/30/18 1715 Urine pH 6.0 pH 03/30/18 1715 Urine Clarity Clear 03/30/18 1715 Urine Color Yellow 03/30/18 1715 Albumin 4.2 g/dl 03/30/18 1518 Total Protein 7.3 g/dl 03/30/18 1518 Alkaline Phosphatase 118 U/L 03/30/18 1518 Alanine Aminotransferase (ALT/SGPT) 24 U/L 03/30/18 1518 Aspartate Amino Transf (AST/SGOT) 13 U/L 03/30/18 1518 Total Bilirubin 0.9 mg/dl 03/30/18 1518 Calcium Level 9.6 mg/dl 03/30/18 1518 Lactate 2.4 mmol/L H 03/30/18 1549 Activated Partial Thromboplast Time 26 seconds 03/30/18 1518 Prothromb Time International Ratio 1.07 03/30/18 1518 Prothrombin Time 13.9 seconds 03/30/18 1518 Assessment and Plan Problems: (1) Cellulitis of right upper extremity Status: Acute Assessment & Plan: He appears to have a significant cellulitis involving the right upper extremity. It may be related to the underlying DVT as well raising suspicion of a potential septic thrombophlebitis. He has had blood cultures drawn. Will cover empirically with IV cefepime and vancomycin. Monitor closely. If symptoms resolve and blood cultures negative, then septic thrombophlebitis would be much less likely. (2) DVT of upper extremity (deep vein thrombosis) Status: Acute Assessment & Plan: Will start on subcutaneous Lovenox 1mg/kg BID. Would then transition to oral anticoagulant. It is possible he could have septic thrombophlebitis as noted above. He will be on antibiotic therapy. (3) HTN (hypertension) Status: Chronic Assessment & Plan: Will continue his usual clonidine, lisinopril. Will hold off on restarting his HCTZ for now. (4) Chronic pain Status: Chronic Assessment & Plan: He has been managed with oxycodone and Zanaflex. (5) Type 2 diabetes mellitus Status: Chronic Assessment & Plan: ADA diet, resume Lantus, monitor glucoses, and use SSI as needed. Central Venous Access Medical Necessity for Access: Medication Administration Venous Thromboembolism Antithrombotics Is Pt On Any Antithrombotics?: Yes Exam Sepsis Risk: Severe Sepsis Risk KIERSTEN VILLAVICENCIO MD Mar 30, 2018 18:32
[2018-03-30] MEDS: INSULIN HUM LISPRO 100 UN/ML 3 ML VIAL SUBQ PRN ×2 (18:48→21:44)
[2018-03-30 20:03] VITALS: BP 139/81
[2018-03-30] MEDS: PROMETHAZINE 25 MG/ML 1 ML AMP IVP PRN (20:57)
[2018-03-30] MEDS: LISINOPRIL 20 MG TAB PO SCH (21:00)
[2018-03-30] MEDS: cloNIDine HCL 0.1 MG TAB PO SCH (21:01)
[2018-03-30] MEDS: hydrOXYzine 25 MG TAB PO SCH (21:02)
[2018-03-30] MEDS: HYDROmorphone HCL 2 MG/ML SDV IVP PRN ×2 (21:03→22:37)
[2018-03-30] MEDS: INSULIN GLARGINE 100 U/ML 3 ML PEN SUBQ SCH (21:43)
[2018-03-30 22:38] VITALS: BP 119/76
[2018-03-31] VITALS (7 sets, daily range): BP systolic 94–128; BP diastolic 59–89
[2018-03-31] MEDS: HYDROmorphone HCL 2 MG/ML SDV IVP PRN ×7 (01:31→21:33)
[2018-03-31] MEDS ORDERED: CEFEPIME HCL 2 GM VIAL IVP SCH (03:00)
[2018-03-31] MEDS ORDERED: VANCOMYCIN(*) 1 GM VIAL 1 GM, VANCOMYCIN (*) 0.5 GM VIAL 0.5 GM in NS(*) 0.9% 250 ML BA... IVPB SCH (03:30)
[2018-03-31] MEDS: ENOXAPARIN 100 MG/ML SYR SC SCH ×2 (04:08→17:25)
[2018-03-31] MEDS: PROMETHAZINE 25 MG/ML 1 ML AMP IVP PRN ×5 (04:15→23:37)
[2018-03-31] MEDS: NS(*) 0.9% 1000 ML BAG 1,000 ML IV PRN ×3 (04:17→19:35)
[2018-03-31] MEDS ORDERED: KETOROLAC 15 MG/ML VIAL IVP ONE (05:40)
[2018-03-31 06:28] LABS: PLATELET COUNT, AUTOMATED 156 K/uL (150-450)
[2018-03-31] MEDS: IBUPROFEN 600 MG TAB PO PRN ×2 (08:06→13:55)
[2018-03-31] MEDS: oxyCODONE HCL 5 MG CAP PO PRN ×4 (08:08→22:54)
[2018-03-31] MEDS: cloNIDine HCL 0.1 MG TAB PO SCH (09:00)
[2018-03-31] MEDS: LISINOPRIL 20 MG TAB PO SCH (09:00)
[2018-03-31] MEDS: hydrOXYzine 25 MG TAB PO SCH ×2 (09:00→21:28)
[2018-03-31] MEDS ORDERED: cefTRIAXone 2 GM VIAL IVP SCH (09:15)
[2018-03-31] MEDS ORDERED: NS(*) 0.9% 1000 ML BAG 1,000 ML IV ONE (09:15)
--- NOTE | 2018-03-31 11:13 | Procedure Note ---
Central Line Procedure Note Indication for Central Line: IV medications Consent Signed: Yes Central Line Lumen: Triple Central Line Procedure: Chlorhexidine Prep, Sterile Drapes Applied, Sterile Dressing Applied Central Line Position: R Internal Jugular Anesthesia Used: 1% Lidocaine Complications: None Central Line Post Position: Sutured, Confirmed Blood Return, Position Confirmed w/CXR ELVIS OLEARY DO Mar 31, 2018 11:13
--- NOTE | 2018-03-31 11:17 | Hospitalist Progress Note ---
Subjective Progress Notes Subjective This patient was admitted for sepsis and DVT. He has continued to have fevers overnight. Patient Complains of: Cardiovascular: No: Chest Pain Respiratory: No: Shortness of Breath Gastrointestinal: No Nausea, No Vomiting Physical Exam Vital Signs Date Time Temp Pulse Resp B/P (MAP) Pulse Ox O2 Delivery O2 Flow Rate FiO2 03/31/18 07:16 103.3 104 8 126/72 (90) 90 Nasal Cannula 1.0 Intake and Output 03/31/18 07:00 Intake Total 1945 ml Output Total 950 ml Balance 995 ml Intake Oral 180 ml IV Total 1765 ml Output Urine Total 950 ml # Voids 1 Neuro: No Gross deficits Eyes: PERRLA Cardiovascular: Regular Rate and Rhythm Respiratory: Clear to Auscultation GI: Soft and Non-Tender Extremities: Other (Erythema, bruising, and swelling in right upper extremity.) Result Diagram: 03/31/18 0551 03/31/18 0551 Item Value Date Time Lactate 1.8 mmol/L 03/31/18 0200 Item Value Date Time Blood Culture - Final Resulted 03/30/18 1549 Blood Blood Culture - Final Resulted 03/30/18 1518 Blood Imaging Chest x-ray reviewed. Assessment and Plan Problems: (1) Sepsis Assessment & Plan: He did present with fever, an elevated WBC, tachycardia, and lactic acidosis. His lactate and WBC have improved, but he continues to have a fever and tachycardia. We are planning an additional bolus of IV fluids this morning. All four of his cultures have shown growth of a gram positive cocci in chains. He was on treatment with cefepime and vancomycin, but we have now converted him to ceftriaxone. It seems unlikely that the bacteria is secondary to his cellulitis. He denies sore throat and his pharynx is clear. We have sent a throat culture and an echocardiogram is pending. (2) Cellulitis of right upper extremity Status: Acute Assessment & Plan: He does have redness over the right elbow and forearm, but it is not consistent with a typical cellulitis. (3) DVT of upper extremity (deep vein thrombosis) Status: Acute Assessment & Plan: An ultrasound did reveal a clot in the right basilic vein. He is on treatment with Lovenox. (4) HTN (hypertension) Status: Chronic Assessment & Plan: He is on chronic treatment with clonidine, lisinopril, and hydrochlorothiazide. All of these have been placed on hold secondary to borderline low blood pressures. (5) Chronic pain Status: Chronic Assessment & Plan: He is on chronic treatment with oxycodone and Zanaflex. He continues to receive these and Dilaudid is also ordered for breakthrough pain. (6) Type 2 diabetes mellitus Status: Chronic Assessment & Plan: He is on chronic treatment with Lantus and Novolog. We currently have him on Lantus and sliding scale level #2. Central Venous Access Medical Necessity for Access: Medication Administration Exam Sepsis Risk: Severe Sepsis Risk Problem Qualifiers (1) HTN (hypertension): Hypertension type: essential hypertension Qualified Codes: I10 - Essential (primary) hypertension ELVIS OLEARY DO Mar 31, 2018 11:17
--- NOTE | 2018-03-31 11:27 | RADIOLOGY IMAGING REPORT ---
FACILITY: [facility] [place] PATIENT NAME: Tyson Ricardo : 1975 MR: [id number] V: [id number] EXAM DATE: [id number] ORDERING PHYSICIAN: ELVIS OLEARY TECHNOLOGIST: Location: [facility] [place] Patient: Tyson Ricardo : 1975 Visit/Account:[id number] Date of Sevice: 03/31/2018 Exam type: CHEST SINGLE AP History: s/p cvc line Comparison: July 25, 2013. Findings: There has been placement of a right central venous catheter with the distal tip projecting over the s uperior vena cava. No pneumothorax is seen. There is no evidence of acute appearing infiltrates, pl eural effusions or pulmonary edema. Cardiac silhouette is normal in size. IMPRESSION: 1. Right central venous catheter is noted with distal tip projecting over the superior vena cava. N o pneumothorax is seen Report Dictated By: Kailey Merrill MD at 03/31/2018 11:22 AM Report E-Signed By: Kailey Merrill MD at 03/31/2018 11:23 AM WSN:[email or web address]
[2018-03-31] MEDS: PANTOPRAZOLE SOD 40 MG TABEC PO SCH (11:29)
[2018-03-31] MEDS: cefTRIAXone(*) 2 GM VIAL 2 GM in NS(*) 0.9% 100 ML ADDVANT BAG 100 ML IVPB SCH (11:30)
[2018-03-31] MEDS: INSULIN HUM LISPRO 100 UN/ML 3 ML VIAL SUBQ PRN ×3 (12:32→21:34)
[2018-03-31] MEDS: INSULIN GLARGINE 100 U/ML 3 ML PEN SUBQ SCH (21:34)
[2018-04-01] MEDS: NS(*) 0.9% 1000 ML BAG 1,000 ML IV PRN ×3 (03:30→20:05)
[2018-04-01] MEDS: oxyCODONE HCL 5 MG CAP PO PRN ×3 (03:31→12:14)
[2018-04-01] MEDS: ENOXAPARIN 100 MG/ML SYR SC SCH (03:31)
[2018-04-01 03:34] VITALS: BP 104/66
[2018-04-01] MEDS: IBUPROFEN 600 MG TAB PO PRN ×2 (03:39→21:27)
[2018-04-01] MEDS: HYDROmorphone HCL 2 MG/ML SDV IVP PRN ×6 (04:18→18:45)
[2018-04-01 06:08] LABS: PLATELET COUNT, AUTOMATED 142 K/uL (150-450)
[2018-04-01 07:27] VITALS: BP 126/104
[2018-04-01 07:32] VITALS: BP 138/96
[2018-04-01] MEDS: hydrOXYzine 25 MG TAB PO SCH ×2 (07:54→21:00)
[2018-04-01] MEDS: PANTOPRAZOLE SOD 40 MG TABEC PO SCH (07:55)
[2018-04-01] MEDS: INSULIN HUM LISPRO 100 UN/ML 3 ML VIAL SUBQ PRN ×4 (08:01→21:29)
[2018-04-01] MEDS: cefTRIAXone(*) 2 GM VIAL 2 GM in NS(*) 0.9% 100 ML ADDVANT BAG 100 ML IVPB SCH (11:15)
[2018-04-01 11:20] VITALS: BP 166/108
[2018-04-01] MEDS: PROMETHAZINE 25 MG/ML 1 ML AMP IVP PRN ×3 (12:13→21:34)
[2018-04-01] MEDS: KCL (*) 20 MEQ/100 ML PREMIX 100 ML IV SCH ×2 (12:15→15:20)
--- NOTE | 2018-04-01 12:21 | Hospitalist Progress Note ---
Subjective Progress Notes Subjective 43M admitted for sepsis, bacteremia. GREGG overnight, discussed that this likely started from abscess. Patient Complains of: Neurological: No: Syncope, Confusion Cardiovascular: No: Chest Pain, Palpitations Respiratory: No: Cough, Congestion Gastrointestinal: No Nausea, No Vomiting Genitourinary: No Dysuria Musculoskeletal: Other (+ erythema R antecubital fossa and medail elbow.) Physical Exam Vital Signs Date Time Temp Pulse Resp B/P (MAP) Pulse Ox O2 Delivery O2 Flow Rate FiO2 04/01/18 11:20 98.6 93 16 166/108 (127) 95 Room Air 03/31/18 12:30 1.0 Intake and Output 04/01/18 07:00 Intake Total 5760 ml Output Total 400 ml Balance 5360 ml Intake Oral 2402 ml IV Total 3358 ml Output Urine Total 400 ml # Voids 1 General Appearance: Alert, Awake, No Acute Distress Neuro: No Gross deficits Eyes: PERRLA ENT: Other (+ poor dentition) Cardiovascular: Normal Rhythm & Peripheral Pulses Respiratory: No Respiratory Distress GI: Soft and Non-Tender Lymph: Cervical Nodes Benign Musculoskeletal: No Weakness/Pain Integumentary: Skin Intact without Lesion / Mass (+ antecubital erythema) Psych: Alert & Oriented X3 Result Diagram: 04/01/18 0534 04/01/18 0534 Assessment and Plan Problems: (1) Sepsis Assessment & Plan: He did present with fever, an elevated WBC, tachycardia, and lactic acidosis. His lactate and WBC have improved, fever now resolved but remains mildly tachycardic. All four of his cultures have shown growth of strep viridans. He was on treatment with cefepime and vancomycin, but we have now converted him to ceftriaxone. Likely source is poor dentition and tooth abscess. Echocardiogram is negative for vegetations. Will need at least 2 weeks IV Abx, repeat Cx pending. (2) Cellulitis of right upper extremity Status: Acute Assessment & Plan: He does have redness over the right elbow and forearm, but it is not consistent with a typical cellulitis. Suspect this is phlebitis related to thrombus and bacteremia. (3) DVT of upper extremity (deep vein thrombosis) Status: Acute Assessment & Plan: An ultrasound did reveal a clot in the right basilic vein. He is on treatment with Lovenox. (4) HTN (hypertension) Status: Chronic Assessment & Plan: He is on chronic treatment with clonidine, lisinopril, and hydrochlorothiazide. Will resume lisinopril/HCTZ. (5) Chronic pain Status: Chronic Assessment & Plan: He is on chronic treatment with oxycodone and Zanaflex. He continues to receive these and Dilaudid is also ordered for breakthrough pain. (6) Type 2 diabetes mellitus Status: Chronic Assessment & Plan: He is on chronic treatment with Lantus and Novolog. We currently have him on Lantus and sliding scale level #2. Central Venous Access Medical Necessity for Access: Medication Administration Exam Sepsis Risk: No Definite Risk Problem Qualifiers (1) HTN (hypertension): Hypertension type: essential hypertension Qualified Codes: I10 - Essential (primary) hypertension MARCELLUS CASTANON DO Apr 01, 2018 12:21
--- NOTE | 2018-04-01 14:23 | Medical Nutrition Therapy ---
Nutrition Anthropometrics Height (Inches): 70 (prior visit) Weight (Pounds): 214 Weight (Calculated Kilograms): 97.069 BMI: 33.2 [place] Nutrition Score: Probably Inadequate [place] Nutrition Risk Score: 18 Dietary Referral Nutrition Risk Factors: Unplanned Loss >10lbs Nutrition Risk Comment: LOST 40 # SINCE OCTOBER 2012 Physical Findings Physical Appearance: Obese BMI 30-39 Skin Appearance Skin Appearance: Edema Edema Location Modifier: Left Edema Location: Arm Type of Edema: Degree of Edema: 2+ Gastrointestinal Symptoms GI Symtoms: Nausea Tube Present: Bowel Sounds: Recent Bowel Pattern: Stool Characteristics: Nutritional Diagnosis Nutritional Risk Acuity 2: Blood Glucose > 300mg/dl, Sepsis Nutritional Risk Acuity 4: Good Appetite Past Medical History: Hx of degenerative disc disease, spine surgery, hyperlipidemia, obesity, Gout, HTN, nephrolithiasis, T2DM. Nutritional Acuity: 2-Moderate Nutrition Diagnosis: Increased Nutrient Needs Nutrition Etiology: Physiological Causes Nutrition Problem/Etiology/Sym: Increased nutrient needs, as related to physiological causes, as evidenced by cellulitis and sepeis of upper extremity. Energy Requirement: 2430 ([place] 1.3) Protein Requirement: 78 (.8g/kg) Fluid Requirement: 2400 (25ml/kg) Nutrition Intervention: Cont diet as ordered, Encourage intake Nutrition Monitoring & Eval RD Patient Assessment Time: [address] Assessment Type: RD Assessment Patient Nutrition Acuity: 2-Moderate Follow Up Date: Apr 05, 2018 Nutritional Comment: 03/31. Admitted for sepsis, cellulitis of upper arm and DVT of upper extremity. Pt on diabetic diet, no meals to report. Pt had BG reading of 437 yesterday. BG is improving, but still elevated today, 266. Afternoon BG 370. Pt is receiving 25 units Lantus and 2-10 units humalog PRN. Other notable labs inlude: low sodium 131, calcium 8, total protein 5.9, and albumin 3.1. Pt is 214lbs and has a BMI of 33.2. Recommend 2430 kcal and 78g protein each day. Will cont to monitor. MR 04/01. Pt was referred by for diabetic education. Met with pt today and noted elevated BG. Pt, who was highly uninterested, refused diabetic education. Nurse reports pt is having family buy additional CHO from cafateria. MR Nutritional Education Nutrition Education Topic: Diabetic Nutrition Learning Readiness: Not Interested, Not Ready Response to Teaching: Patient Refused JEREMY CORDOVA Mar 31, 2018 14:05
[2018-04-01] MEDS ORDERED: RIV10 PO (16:52)
[2018-04-01] MEDS ORDERED: KETOROLAC 30 MG/ML VIAL IVP PRN (16:55)
--- NOTE | 2018-04-01 19:04 | RADIOLOGY IMAGING REPORT ---
FACILITY: [facility] - [place] PATIENT NAME: Tyson Ricardo : 1975 MR: [id number] V: [id number] EXAM DATE: ORDERING PHYSICIAN: MARCELLUS KAPADIA TECHNOLOGIST: Location: [facility] [place] Patient: Tyson Ricardo : 1975 Visit/Account:[id number] Date of Sevice: 04/01/2018 Venous Doppler ultrasound right upper extremity Indication: Worsening swelling. History of basilic clot. Comparison: None available. Findings: There is normal compressibility and blood flow of the right internal jugular vein. There is normal blood flow to the right subclavian vein. There is normal compressibility and blood flow identified within the right axillary vein, brachial ve ins and cephalic veins. The right basilic vein again shows intraluminal thrombus which is fairly occlusive extending from the mid arm into the forearm. This is unchanged from the previous examination. The proximal cephalic vei n appears to be patent. Subcutaneous tissues show edema. IMPRESSION: 1. Continued occlusive thrombus in the right basilic vein from mid to distal aspect. The remaining v eins of the right arm are clear. I called report to MARCELLUS KAPADIA at 04/01/2018 7:00 PM. Report Dictated By: Garrett Salazar at 04/01/2018 6:49 PM Report E-Signed By: Garrett Salazar at 04/01/2018 7:00 PM WSN:[id number]
[2018-04-01 19:35] VITALS: BP 150/92
[2018-04-01] MEDS: MORPHINE 2 MG/ML SYR IVP PRN ×2 (20:45→23:41)
[2018-04-01] MEDS ORDERED: HYDROCHLOROTHIAZIDE 25 MG TAB PO ONE (21:00)
[2018-04-01] MEDS: SUCRALFATE 1 GM TAB PO SCH (21:27)
[2018-04-01] MEDS: LISINOPRIL 20 MG TAB PO SCH (21:28)
[2018-04-01] MEDS: RIVAROXABAN 10 MG TAB PO SCH (21:28)
[2018-04-01] MEDS: INSULIN GLARGINE 100 U/ML 3 ML PEN SUBQ SCH (21:30)
[2018-04-01 23:45] VITALS: BP 112/66
[2018-04-02 02:51] VITALS: BP 123/79
[2018-04-02] MEDS: NS(*) 0.9% 1000 ML BAG 1,000 ML IV PRN (02:59)
[2018-04-02] MEDS: MORPHINE 2 MG/ML SYR IVP PRN ×7 (02:59→22:40)
[2018-04-02] MEDS: IBUPROFEN 600 MG TAB PO PRN ×3 (05:32→22:40)
[2018-04-02 07:35] VITALS: BP 141/89
[2018-04-02] MEDS: INSULIN HUM LISPRO 100 UN/ML 3 ML VIAL SUBQ PRN ×4 (08:04→21:14)
[2018-04-02] MEDS: PROMETHAZINE 25 MG/ML 1 ML AMP IVP PRN ×3 (10:25→21:23)
[2018-04-02] MEDS: SUCRALFATE 1 GM TAB PO SCH ×4 (10:29→21:12)
[2018-04-02] MEDS: LISINOPRIL 20 MG TAB PO SCH ×2 (10:29→21:12)
[2018-04-02] MEDS: RIVAROXABAN 10 MG TAB PO SCH ×2 (10:29→21:13)
[2018-04-02] MEDS: PANTOPRAZOLE SOD 40 MG TABEC PO SCH (10:30)
[2018-04-02] MEDS: cefTRIAXone(*) 2 GM VIAL 2 GM in NS(*) 0.9% 100 ML ADDVANT BAG 100 ML IVPB SCH (10:30)
[2018-04-02] MEDS: hydrOXYzine 25 MG TAB PO SCH ×2 (10:30→21:12)
[2018-04-02] MEDS: KCL (*) 20 MEQ/100 ML PREMIX 100 ML IV SCH ×2 (11:23→13:41)
[2018-04-02 11:27] VITALS: BP 148/81
--- NOTE | 2018-04-02 14:13 | Hospitalist Progress Note ---
Subjective Progress Notes Subjective The patient denies new complaints. He states he had a DVT in the right upper arm about 6 years ago as well. He does not recall if he was worked up for a hypercoaguable disorder or thoracic outlet syndrome at that time. Physical Exam Vital Signs Date Time Temp Pulse Resp B/P (MAP) Pulse Ox O2 Delivery O2 Flow Rate FiO2 04/02/18 11:27 98.6 96 16 148/81 (103) 95 Room Air 03/31/18 12:30 1.0 Intake and Output 04/02/18 07:00 Intake Total 5700 ml Output Total 3150 ml Balance 2550 ml Intake Oral 1680 ml IV Total 4020 ml Output Urine Total 3150 ml # Voids 2 General Appearance: Alert, Awake, No Acute Distress, Other (Tmax 101.4) Neuro: No Gross deficits Eyes: PERRLA ENT: Other (Teeth in poor repair. Several teeth are broken off at the gum. No obvious swelling or redness.) Cardiovascular: Regular Rate and Rhythm Respiratory: Clear to Auscultation GI: Soft and Non-Tender Extremities: Other (R upper extremity with swelling compared to the left. Both LE with trace edema.) Integumentary: Other (R upper arm with area of redness above the antecubital fossa. This is warm to the touch.) Psych: Appropriate Mood & Affect Result Diagram: 04/01/1853304/02/18526 Assessment and Plan Problems: (1) Sepsis Assessment & Plan: He did present with fever, an elevated WBC, tachycardia, and lactic acidosis. His lactate and WBC have improved, Tmax over past 24 hours was 101.4. All four of his blood cultures have shown growth of strep viridans. He was on treatment with cefepime and vancomycin, but we have now converted him to ceftriaxone. Likely source is poor dentition and tooth abscess. Echocardiogram is negative for vegetations. Will need at least 2 weeks IV Abx, repeat Cx pending. PICC line placement today. He has decided to come in to [facility] once daily for antibiotics after discharge. (2) Cellulitis of right upper extremity Status: Acute Assessment & Plan: He does have redness over the right elbow and forearm, but it is not consistent with a typical cellulitis. Suspect this is phlebitis related to thrombus and bacteremia. (3) DVT of upper extremity (deep vein thrombosis) Status: Acute Assessment & Plan: An ultrasound did reveal a clot in the right basilic vein. He is on treatment with Lovenox. He had a clot in the same arm 6 years ago. Will look through EMR to see if there were further studies done at that time. (4) HTN (hypertension) Status: Chronic Assessment & Plan: He is on chronic treatment with clonidine, lisinopril, and hydrochlorothiazide. Will resume lisinopril/HCTZ. (5) Chronic pain Status: Chronic Assessment & Plan: He is on chronic treatment with oxycodone and Zanaflex. He continues to receive these and morphine is also ordered for breakthrough pain. (6) Type 2 diabetes mellitus Status: Chronic Assessment & Plan: He is on chronic treatment with Lantus and Novolog. We currently have him on Lantus and sliding scale level #2. He is requiring a higher dose than he takes at home. Central Venous Access Medical Necessity for Access: Medication Administration Time Spent on Plan of Care: < 30 min Exam Sepsis Risk: Sepsis Risk Problem Qualifiers (1) HTN (hypertension): Hypertension type: essential hypertension Qualified Codes: I10 - Essential (primary) hypertension SELENE VILLAVICENCIO MD Apr 02, 2018 14:13
[2018-04-02 14:19] VITALS: BP 147/88
--- NOTE | 2018-04-02 14:50 | RADIOLOGY IMAGING REPORT ---
FACILITY: [facility] PATIENT NAME: Tyson Ricardo : 1975 MR: [id number] V: [id number] EXAM DATE: ORDERING PHYSICIAN: MARCELLUS KAPADIA TECHNOLOGIST: Location: [facility] Patient: Tyson Ricardo : 1975 Visit/Account:[id number] Date of Sevice: 04/02/2018 Exam type: PICC LINE PLACEMENT, PICC LINE INSERTION History: Outpatient Abx Comparison: None. Findings: Informed consent was obtained. The patient's left arm was prepped and draped usual sterile fashion. Local anesthesia was accomplished with 1% lidocaine. Utilizing both sonographic and fluoroscopic gu idance a 43 cm long trimmed 5 [place] double-lumen power PICC was inserted via the patent left basilic vein with the distal tip resting in superior vena cava. Both lumens of power PICC were flushed with 5 mL of saline flush. Proximal portion PICC line was adhered patient's arm the sterile dressing. T he procedure was accomplished without apparent complication. The sonographic images were saved to [facility]. The fluoroscopy dose area product was 51.76 micro-[place] per meter squared IMPRESSION: 1. Successful placement of a 43 cm long trimmed 5 Argentine double lumen power PICC inserted via the pa tent left basilic vein with the distal tip resting in superior vena cava Report Dictated By: Kailey Merrill MD at 04/02/2018 2:44 PM Report E-Signed By: Kailey Merrill MD at 04/02/2018 2:47 PM WSN:[email or web address]
--- NOTE | 2018-04-02 14:51 | RADIOLOGY IMAGING REPORT ---
FACILITY: [facility] [place] PATIENT NAME: Tyson Ricardo : 1975 MR: [id number] V: [id number] EXAM DATE: ORDERING PHYSICIAN: SELENE VILLAVICENCIO TECHNOLOGIST: Location: [facility] Patient: Tyson Ricardo : 1975 Visit/Account:[id number] Date of Sevice: 04/02/2018 Exam type: PICC LINE PLACEMENT, PICC LINE INSERTION History: Outpatient Abx Comparison: None. Findings: Informed consent was obtained. The patient's left arm was prepped and draped usual sterile fashion. Local anesthesia was accomplished with 1% lidocaine. Utilizing both sonographic and fluoroscopic gu idance a 43 cm long trimmed 5 Irish double-lumen power PICC was inserted via the patent left basilic vein with the distal tip resting in superior vena cava. Both lumens of power PICC were flushed with 5 mL of saline flush. Proximal portion PICC line was adhered patient's arm the sterile dressing. T he procedure was accomplished without apparent complication. The sonographic images were saved to [facility]. The fluoroscopy dose area product was 51.76 micro-[place] per meter squared IMPRESSION: 1. Successful placement of a 43 cm long trimmed 5 Irish double lumen power PICC inserted via the pa tent left basilic vein with the distal tip resting in superior vena cava Report Dictated By: Kailey Merrill MD at 04/02/2018 2:44 PM Report E-Signed By: Kailey Merrill MD at 04/02/2018 2:47 PM WSN:[email or web address]
[2018-04-02] MEDS ORDERED: NEOMYCIN/POLYMYX/BACITR OINT 1 PACKET TP ONE (16:56)
[2018-04-02 19:20] VITALS: BP 146/102
[2018-04-02] MEDS ORDERED: INSULIN GLARGINE 100 U/ML 3 ML PEN SUBQ SCH (21:00)
[2018-04-02 22:36] VITALS: BP 147/100
[2018-04-03 00:49] VITALS: BP 118/67
[2018-04-03 04:20] VITALS: BP 102/62
[2018-04-03] MEDS: oxyCODONE HCL 5 MG CAP PO PRN ×2 (04:33→10:39)
[2018-04-03 06:57] LABS: PLATELET COUNT, AUTOMATED 150 K/uL (150-450)
[2018-04-03 07:40] VITALS: BP 142/80
[2018-04-03] MEDS: INSULIN HUM LISPRO 100 UN/ML 3 ML VIAL SUBQ PRN ×2 (08:00→11:50)
[2018-04-03] MEDS: MORPHINE 2 MG/ML SYR IVP PRN (08:00)
[2018-04-03] MEDS: hydrOXYzine 25 MG TAB PO SCH (09:16)
[2018-04-03] MEDS: LISINOPRIL 20 MG TAB PO SCH (09:16)
[2018-04-03] MEDS: SUCRALFATE 1 GM TAB PO SCH (09:16)
[2018-04-03] MEDS: PANTOPRAZOLE SOD 40 MG TABEC PO SCH (09:16)
[2018-04-03] MEDS: RIVAROXABAN 10 MG TAB PO SCH (09:17)
[2018-04-03] MEDS ORDERED: INSU100I30 SUBQ (09:49)
[2018-04-03] MEDS ORDERED: CEFT2VIA IV ×2 (09:49→10:00)
[2018-04-03] MEDS ORDERED: IBUP600T22 PO (09:49)
[2018-04-03] MEDS ORDERED: OXYC5CAP21 PO (09:52)
--- NOTE | 2018-04-03 09:59 | Hospitalist Depart ---
Discharge Summary Reason for Hosp/Final Diag: (1) Sepsis Hospital Course & Plan: He did present with fever, an elevated WBC, tachycardia, and lactic acidosis. He has improved with IV fluids and ceftriaxone. His cultures were positive for Streptococcus viridans. The source is presumed to be poor dentition. He will continue on IV ceftriaxone to complete a 14 day course. He is instructed to follow up with a dentist. (2) Poor dentition (3) DVT of upper extremity (deep vein thrombosis) Status: Acute Hospital Course & Plan: An ultrasound did reveal a clot in the right basilic vein. He was started on treatment with Lovenox, but has now been converted to Xarelto. He does have a previous history of clot in the same arm. He will likely require lifelong anticoagulation. (4) HTN (hypertension) Status: Chronic Hospital Course & Plan: He is on chronic treatment with clonidine, lisinopril, and hydrochlorothiazide. He has only been receiving the lisinopril during this admission. His blood pressure has been labile with this medication alone. (5) Chronic pain Status: Chronic Hospital Course & Plan: He is on chronic treatment with oxycodone and Zanaflex. (6) Type 2 diabetes mellitus Status: Chronic Hospital Course & Plan: He is on chronic treatment with Lantus and Novolog. Departure Latest Vital Signs Vital Signs 04/03/18 04/03/18 04:20 07:40 Temp 97.6 Pulse 83 Resp 16 B/P (MAP) 142/80 (100) Pulse Ox 97 O2 Delivery Room Air O2 Flow Rate 1.0 Weight (Pounds): 214 Weight (Ounces): 4.0 Result Diagram: 04/03/1860304/03/18603 Condition: Improved Discharge: Home, Self Care Discharge Instructions Home Meds Active Scripts Ceftriaxone Sodium (CEFTRIAXONE) 2 Gm Vial, 2 GM IV QDAY, #14 VIAL Prov:ELVIS OLEARY DO 04/03/18 Oxycodone Hcl (OXYCODONE HCL) 5 Mg Capsule, 2 TAB PO Q6H PRN for PAIN, #30 CAPSULE Prov:ELVIS OLEARY DO 04/03/18 Ibuprofen (IBUPROFEN) 600 Mg Tablet, 600 MG PO Q8H PRN for PAIN, #30 TAB Prov:ELVIS OLEARY DO 04/03/18 Insulin Glargine 100 Un/Ml Pen (LANTUS SOLOSTAR PEN) 100 Unit/1 Ml Insuln.pen, 28 UNIT SUBQ QHS, #10 ML Prov:ELVIS OLEARY DO 04/03/18 Rivaroxaban (XARELTO 10 MG TAB (OR EQUIV)) 10 Mg Tablet, 15 MG PO BID for 21 Days, #62 TAB Take 15mg BID for 21 days then take 20mg daily until instructed to stop. Prov:GRAY KAPADIAMARCELLUS DO 04/01/18 Lancets (Blood Lancets) 30 Gauge Each, EACH, #100 Prov:ELVIS OLEARY DO 06/04/17 Blood Sugar Diagnostic (GLUCOSE TEST STRIP) 1 Each Strip, 1 EACH MC QID, #100 STRIP Prov:ELVIS OLEARY DO 06/04/17 [place], Insulin Disposable (INSULIN PEN NEEDLE) 1 Each Dis.needle, EACH MC QID, #100 Prov:ELVIS OLEARY DO 06/04/17 Reported Medications Insulin Aspart (NOVOLOG) 100 Unit/Ml Soln, SUBQ SS 01/10/18 Lisinopril (LISINOPRIL) 40 Mg Tablet, 40 MG PO BID, TAB 05/31/17 Tizanidine Hcl (TIZANIDINE HCL) 2 Mg Capsule, 4 MG PO TID, CAPSULE 03/26/17 Aspirin (ASPIRIN) 81 Mg Tab.chew, 81 MG PO QDAY, TAB.CHEW TAKE 1 TABLET BY MOUTH EVERY DAY 08/10/14 Discontinued Reported Medications Oxycodone Hcl 20 Mg Tab (OXYCODONE HCL 20 MG TAB) 20 Mg Tablet, 20 MG PO 5XD 03/30/18 Hydroxyzine Hcl (HYDROXYZINE HCL) 25 Mg Tablet, 25 MG PO BID 03/30/18 Clonidine Hcl (CLONIDINE HCL) 0.2 Mg Tablet, 0.4 MG PO DAILY PRN for HTN, TAB May take a third dose of clonidine 0.4 mg daily as needed (for a total dose of 0.4 mg TID) 06/04/17 Clonidine Hcl (CLONIDINE HCL) 0.2 Mg Tablet, 0.4 MG PO BID, TAB 06/04/17 Hydrochlorothiazide (HYDROCHLOROTHIAZIDE) 12.5 Mg Tablet, 1 TAB PO BID, TAB 05/31/17 Amitriptyline Hcl (AMITRIPTYLINE HCL) 25 Mg Tablet, 50 MG PO QHS, #10 TAB 05/31/17 Oxycodone Hcl (OXYCONTIN) 20 Mg Tab.er.12h, 20 MG PO 6XD, TAB 05/31/17 Discontinued Scripts Insulin Glargine 100 Un/Ml Pen (LANTUS SOLOSTAR PEN) 100 Unit/1 Ml Insuln.pen, 20 UNIT SQ QHS, #3 ML Prov:ELVIS OLEARY DO 06/04/17 Omeprazole (OMEPRAZOLE) 40 Mg Capsule.dr, 40 MG PO QDAY, #30 CAP Prov:KDAI DICKENS 12/06/17 Metoprolol Succinate (METOPROLOL SUCCINATE) 50 Mg Tab.er.24h, 1 TAB PO QDAY, #90 TAB 1 Refill Prov:MAGED BILLINGS MD 11/04/16 Diet: Diabetic Activity: As Tolerated Venous Thromboembolism Antithrombotics Is Pt On Any Antithrombotics?: Yes Problem Qualifiers (1) HTN (hypertension): Hypertension type: essential hypertension Qualified Codes: I10 - Essential (primary) hypertension ELVIS OLEARY DO Apr 03, 2018 09:59
[2018-04-03] MEDS: cefTRIAXone(*) 2 GM VIAL 2 GM in NS(*) 0.9% 100 ML ADDVANT BAG 100 ML IVPB SCH (10:37)
[2018-04-03 11:21] VITALS: BP 187/94
== END 2018-04-03 12:10 | disposition home or self-care (01) | DRG 872 ==
LOC: ER 15:08 → MED 16:45
PROVIDERS: ADMIT Internal Medicine; ATTEND Internal Medicine
PROC: 02HV33Z Insertion of Infusion Device into Superior Vena Cava, Percutaneous Approach (ICD-10-PCS; principal; 2018-03-31)
PROC: 02HV33Z Insertion of Infusion Device into Superior Vena Cava, Percutaneous Approach (ICD-10-PCS; 2018-04-02)
PROC: B548ZZA Ultrasonography of Superior Vena Cava, Guidance (ICD-10-PCS; 2018-04-02)
DX: A40.8 Other streptococcal sepsis (principal); I82.611 Acute embolism and thrombosis of superficial veins of right upper extremity; L03.113 Cellulitis of right upper limb; I10 Essential (primary) hypertension; G89.29 Other chronic pain; E86.0 Dehydration; E11.9 Type 2 diabetes mellitus without complications; M51.36 Other intervertebral disc degeneration, lumbar region; E78.5 Hyperlipidemia, unspecified; M1A.9XX0 Chronic gout, unspecified, without tophus (tophi); K04.7 Periapical abscess without sinus; Z79.4 Long term (current) use of insulin; Z79.84 Long term (current) use of oral hypoglycemic drugs; Z88.8 Allergy status to other drugs, medicaments and biological substances; Z87.891 Personal history of nicotine dependence
CPT/HCPCS: 36415; 36416; 36569; 71045; 76937; 81001; 82040; 82247; 82310; 82374; 82435; 82565; 82947; 82948; 83605; 84075; 84132; 84155; 84295; 84450; 84460; 84520; 85025; 85610; 85730; 87040; 87070; 87077; 87088; 87186; 87880; 93306; 93970; 96365; 96375; 99285; C1751; J0692; J0696; J1170; J1650; J1815; J1885; J2270; J2550; J3010; J3370; J3480; J7030; J7050

== ENCOUNTER 2018-04-09 15:00 | Outpatient (RCR) | payer MEDICARE, MEDICAID ==
[2017-06-03 16:04] VITALS: BMI 33.3
[2018-04-04] MEDS: cefTRIAXone(*) 2 GM VIAL 2 GM in NS(*) 0.9% 100 ML ADDVANT BAG 100 ML IVPB SCH (10:00)
[2018-04-04] MEDS: NS(*) 0.9% 100 ML BAG 100 ML IVPB PRN (10:20)
[2018-04-04 10:27] VITALS: BP 148/100
[2018-04-04 10:30] VITALS: BP 148/100
[2018-04-04 10:54] VITALS: BP 148/100
[2018-04-04 11:11] VITALS: BP 148/100
[2018-04-04 11:12] VITALS: BP 148/100
[2018-04-05 15:15] VITALS: BP 173/124
[2018-04-05] MEDS: cefTRIAXone(*) 2 GM VIAL 2 GM in NS(*) 0.9% 100 ML ADDVANT BAG 100 ML IVPB SCH (15:15)
[2018-04-05] MEDS: NS(*) 0.9% 100 ML BAG 100 ML IVPB PRN (15:16)
[2018-04-05 16:01] VITALS: BP 159/111
[2018-04-06] MEDS: NS(*) 0.9% 100 ML BAG 100 ML IVPB PRN (15:12)
[2018-04-06] MEDS: cefTRIAXone(*) 2 GM VIAL 2 GM in NS(*) 0.9% 100 ML ADDVANT BAG 100 ML IVPB SCH (15:13)
[2018-04-06 15:18] VITALS: BP 164/100
[2018-04-07 15:10] VITALS: BP 175/130
[2018-04-07] MEDS: cefTRIAXone(*) 2 GM VIAL 2 GM in NS(*) 0.9% 100 ML ADDVANT BAG 100 ML IVPB SCH (15:10)
[2018-04-07] MEDS: NS(*) 0.9% 100 ML BAG 100 ML IVPB PRN (15:15)
[~2018-04-09 15:00] MED LIST changes: +ALTEPLASE RECOMB 2 MG VIAL IVP PRN; +CEFT2VIA IV; +DEXTROSE 5%(*) 100 ML BAG 100 ML IVPB PRN; +HYDR-4225 PO; +INSU100I30 SUBQ; +NS(*) 0.9% 500 ML BAG 500 ML IV PRN; +OXYC20TA61 PO; +RIV10 PO; -VANCOMYCIN(*) 1 GM VIAL 2 GM in NS(*) 0.9% 250 ML BAG 250 ML IVPB ONE; +WATER FOR INJ,STERILE 20 ML IVP PRN
[2018-04-09] MEDS: cefTRIAXone(*) 2 GM VIAL 2 GM in NS(*) 0.9% 100 ML ADDVANT BAG 100 ML IVPB SCH (15:15)
[2018-04-09 15:16] VITALS: BP 153/116
[2018-04-10 09:05] VITALS: BP 185/131
[2018-04-10] MEDS: NS(*) 0.9% 100 ML BAG 100 ML IVPB PRN (09:09)
[2018-04-10] MEDS: cefTRIAXone(*) 2 GM VIAL 2 GM in NS(*) 0.9% 100 ML ADDVANT BAG 100 ML IVPB SCH ×2 (09:10→10:00)
[2018-04-11] MEDS: cefTRIAXone(*) 2 GM VIAL 2 GM in NS(*) 0.9% 100 ML ADDVANT BAG 100 ML IVPB SCH (10:00)
[2018-04-13 14:58] VITALS: BP 155/114
[2018-04-13] MEDS: NS(*) 0.9% 100 ML BAG 100 ML IVPB PRN (15:03)
[2018-04-14 14:47] VITALS: BP 159/109
[2018-04-14] MEDS: NS(*) 0.9% 100 ML BAG 100 ML IVPB PRN (14:52)
[2018-04-14] MEDS: cefTRIAXone(*) 2 GM VIAL 2 GM in NS(*) 0.9% 100 ML ADDVANT BAG 100 ML IVPB SCH (15:00)
[2018-04-15] MEDS: NS(*) 0.9% 100 ML BAG 100 ML IVPB PRN (15:02)
[2018-04-15] MEDS: cefTRIAXone(*) 2 GM VIAL 2 GM in NS(*) 0.9% 100 ML ADDVANT BAG 100 ML IVPB SCH (15:02)
[2018-04-15 15:03] VITALS: BP 146/103
[2018-04-15 15:45] VITALS: BP 146/119
[2018-04-16] MEDS: cefTRIAXone(*) 2 GM VIAL 2 GM in NS(*) 0.9% 100 ML ADDVANT BAG 100 ML IVPB SCH (14:57)
[2018-04-16] MEDS: NS(*) 0.9% 100 ML BAG 100 ML IVPB PRN (14:58)
[2018-04-16 15:00] VITALS: BP 174/107
[2018-04-17] MEDS: cefTRIAXone(*) 2 GM VIAL 2 GM in NS(*) 0.9% 100 ML ADDVANT BAG 100 ML IVPB SCH (10:55)
[2018-04-17] MEDS: NS(*) 0.9% 100 ML BAG 100 ML IVPB PRN (10:55)
[2018-04-17 10:57] VITALS: BP 148/115
== END 2018-05-05 09:33 | disposition home or self-care (01) ==
LOC: SPU 15:00
PROVIDERS: ATTEND Internal Medicine
DX: R78.81 Bacteremia (principal)
CPT/HCPCS: 96365; 96374; J0696; J1642; J7050

== ENCOUNTER 2018-05-08 15:11 | Inpatient (IN) | payer MEDICARE, MEDICAID ==
[2018-05-08] VITALS (10 sets, daily range): BP systolic 103–192; BP diastolic 53–101
[~2018-05-08] VITALS: Ht 177.8 cm; Wt 97.1 kg
[~2018-05-08 15:11] MED LIST changes: -ALTEPLASE RECOMB 2 MG VIAL IVP PRN; -DEXTROSE 5%(*) 100 ML BAG 100 ML IVPB PRN; -NS(*) 0.9% 500 ML BAG 500 ML IV PRN; -WATER FOR INJ,STERILE 20 ML IVP PRN
--- NOTE | 2018-05-08 15:24 | ER Report ---
History and Physical Time Seen By MD: 15:24 Hx. of Stated Complaint: RED WARM SWOLLEN AREA L ARM, NAUSEA AND VOMITING AND HEADACHE HPI/ROS CHIEF COMPLAINT: Left forearm lump, abdominal pain, nausea, vomiting, fever HISTORY OF PRESENT ILLNESS: Patient is a 43-year-old male here with complaints of the above with a history of upper extremity DVT is on Xarelto. Patient is noted to be febrile at temperature of 102F, tachycardic at 111. Patient reports the symptoms started yesterday. He reports nausea, vomiting, abdominal pain, fevers and chills. REVIEW OF SYSTEMS: Constitutional: + fever, + chills. Eyes: No discharge. ENT: No sore throat. Cardiovascular: No chest pain, no palpitations. Respiratory: No cough, no shortness of breath. Gastrointestinal: + abdominal pain, + nausea and vomiting. Genitourinary: No hematuria. Musculoskeletal: No back pain. Skin: + erythematous left forearm lesion Neurological: No headache, No weakness or paresthesias Allergies: Coded Allergies: diclofenac (Verified Allergy, Mild, HYPERGLYCEMIA , 03/30/18) cortisone (Verified Allergy, Unknown, 03/30/18) acetaminophen (Verified Adverse Reaction, Intermediate, MAKES HEADACHES WORSE, 03/30/18) Home Meds Active Scripts Ibuprofen (IBUPROFEN) 600 Mg Tablet, 600 MG PO Q8H PRN for PAIN, #30 TAB Prov:ELVIS OLEARY DO 04/03/18 Insulin Glargine 100 Un/Ml Pen (LANTUS SOLOSTAR PEN) 100 Unit/1 Ml Insuln.pen, 28 UNIT SUBQ QHS, #10 ML Prov:ELVIS OLEARY DO 04/03/18 Lancets (Blood Lancets) 30 Gauge Each, EACH, #100 Prov:ELVIS OLEARY DO 06/04/17 Blood Sugar Diagnostic (GLUCOSE TEST STRIP) 1 Each Strip, 1 EACH MC QID, #100 STRIP Prov:ELVIS OLEARY DO 06/04/17 [place], Insulin Disposable (INSULIN PEN NEEDLE) 1 Each Dis.needle, EACH MC QID, #100 Prov:ELVIS OLEARY DO 06/04/17 Reported Medications Rivaroxaban 20 Mg (XARELTO 20 MG) 20 Mg Tablet, 20 MG PO, TAB 05/08/18 Insulin Aspart (NOVOLOG) 100 Unit/Ml Soln, SUBQ SS 01/10/18 Lisinopril (LISINOPRIL) 40 Mg Tablet, 40 MG PO BID, TAB 05/31/17 Tizanidine Hcl (TIZANIDINE HCL) 2 Mg Capsule, 4 MG PO TID, CAPSULE 03/26/17 Aspirin (ASPIRIN) 81 Mg Tab.chew, 81 MG PO QDAY, TAB.CHEW TAKE 1 TABLET BY MOUTH EVERY DAY 08/10/14 Discontinued Scripts Ceftriaxone Sodium (CEFTRIAXONE) 2 Gm Vial, 2 GM IV QDAY, #14 VIAL Prov:ELVIS OLEARY DO 04/03/18 Oxycodone Hcl (OXYCODONE HCL) 5 Mg Capsule, 2 TAB PO Q6H PRN for PAIN, #30 CAPSULE Prov:ELVIS OLEARY DO 04/03/18 Rivaroxaban (XARELTO 10 MG TAB (OR EQUIV)) 10 Mg Tablet, 15 MG PO BID for 21 Days, #62 TAB Take 15mg BID for 21 days then take 20mg daily until instructed to stop. Prov:MARCELLUS CASTANON DO 04/01/18 Hx Smoking: Yes Smoking Status: Former Smoker Exposure to Second Hand Smoke?: No Hx Substance Use Disorder: No Hx Alcohol Use: No Constitutional Vital Sign - Last 24 Hours 05/08/18 05/08/18 05/08/18 05/08/18 15:11 15:15 15:16 15:26 Temp 102.0 Pulse ??? 111 111 Resp 20 B/P (MAP) 127/84 (98) 127/84 Pulse Ox 98 98 O2 Delivery Room Air 05/08/18 05/08/18 05/08/18 05/08/18 15:30 15:41 15:56 16:11 Pulse 112 112 106 B/P (MAP) ???/??? (1665) Pulse Ox 99 99 95 05/08/18 05/08/18 05/08/18 05/08/18 16:26 16:30 16:41 16:56 Pulse 103 103 ??? B/P (MAP) 108/65 (79) Pulse Ox 95 94 05/08/18 18:50 Temp 99.8 Physical Exam General Appearance: The patient is alert, has no immediate need for airway protection and no signs of toxicity. Moderate distress Eyes: Pupils equal and round no pallor or injection. ENT, Mouth: Mucous membranes are moist. Respiratory: There are no retractions, lungs are clear to auscultation. Cardiovascular: + tachycardic Gastrointestinal: Abdomen is soft and non tender, no masses, bowel sounds normal. Neurological: No focal neuro deficits Skin: + erythematous and tender lesion of the left forearm Musculoskeletal: Neck is supple non tender. Left extremity is tender, with swelling of the forearm DIFFERENTIAL DIAGNOSIS: After history and physical exam differential diagnosis was considered for thrombosis, DVT, septic thrombophlebitis, cellulitis, intra- abdominal infection Medical Decision Making Data Points Result Diagram: 05/09/18 0513 05/09/18 0513 Laboratory Hematology Test 05/08/18 15:32 05/08/18 18:50 Lipase 58 U/L (23-300) Urine Color Yellow Urine Clarity Clear Urine pH 5.0 pH (4.8-9.5) Urine Specific [place] 1.043 Urine Protein Negative mg/dL (NEGATIVE) Urine Glucose (UA) 500 mg/dL (NEGATIVE) Urine Ketones Trace mg/dL (NEGATIVE) Urine Blood Small (NEGATIVE) Urine Nitrite Negative (NEGATIVE) Urine Bilirubin Negative (NEGATIVE) Urine Urobilinogen Negative mg/dL (0.2-1.9) Urine Leukocyte Esterase Negative (NEGATIVE) Urine RBC 2 /HPF (0-2/HPF) Urine WBC 1 /HPF (0-5/HPF) Urine Squamous Epithelial Cells None /LPF (</=FEW) Urine Transitional Epithelial Cells Few /LPF (NONE-FEW) Urine Bacteria Negative /HPF (NONE-FEW) Urine Mucus None /HPF (NONE-FEW) Chemistry Test 05/08/18 15:32 05/08/18 18:50 Lipase 58 U/L (23-300) Urine Color Yellow Urine Clarity Clear Urine pH 5.0 pH (4.8-9.5) Urine Specific [place] 1.043 Urine Protein Negative mg/dL (NEGATIVE) Urine Glucose (UA) 500 mg/dL (NEGATIVE) Urine Ketones Trace mg/dL (NEGATIVE) Urine Blood Small (NEGATIVE) Urine Nitrite Negative (NEGATIVE) Urine Bilirubin Negative (NEGATIVE) Urine Urobilinogen Negative mg/dL (0.2-1.9) Urine Leukocyte Esterase Negative (NEGATIVE) Urine RBC 2 /HPF (0-2/HPF) Urine WBC 1 /HPF (0-5/HPF) Urine Squamous Epithelial Cells None /LPF (</=FEW) Urine Transitional Epithelial Cells Few /LPF (NONE-FEW) Urine Bacteria Negative /HPF (NONE-FEW) Urine Mucus None /HPF (NONE-FEW) Urinalysis Test 05/08/18 18:50 Urine Color Yellow Urine Clarity Clear Urine pH 5.0 pH (4.8-9.5) Urine Specific [place] 1.043 Urine Protein Negative mg/dL (NEGATIVE) Urine Glucose (UA) 500 mg/dL (NEGATIVE) Urine Ketones Trace mg/dL (NEGATIVE) Urine Blood Small (NEGATIVE) Urine Nitrite Negative (NEGATIVE) Urine Bilirubin Negative (NEGATIVE) Urine Urobilinogen Negative mg/dL (0.2-1.9) Urine Leukocyte Esterase Negative (NEGATIVE) Urine RBC 2 /HPF (0-2/HPF) Urine WBC 1 /HPF (0-5/HPF) Urine Squamous Epithelial Cells None /LPF (</=FEW) Urine Transitional Epithelial Cells Few /LPF (NONE-FEW) Urine Bacteria Negative /HPF (NONE-FEW) Urine Mucus None /HPF (NONE-FEW) Microbiology Microbiology Date/Time Source Procedure Growth Status 05/08/18 15:52 Blood Peripheral Draw Blood Culture - Preliminary NO GROWTH AFTER 1 DAY, REINCUBATED Resulted 05/08/18 15:52 Blood Peripheral Draw Blood Culture - Preliminary NO GROWTH AFTER 1 DAY, REINCUBATED Resulted EKG/Imaging Monitor Interpretation: Sinus Tachycardia Imaging ABDOMEN/PELVIS WITH CONTRAST Additional pertinent History: Abdominal pain TECHNIQUE: Spiral scan was through the abdomen and pelvis during injection of nonionic iodinated intravenous contrast. Contrast: 75 mL of IV Isovue-370. COMPARISON STUDIES: CT scan from 08/10/2014 One of the following dose optimization techniques was utilized in the performance of this exam: Automated exposure control; adjustment of the mA and/or kV according to the patient's size; or use of an iterative reconstruction technique. Specific details can be referenced in the facility's radiology CT exam operational policy.. FINDINGS: Liver / biliary: Small hypoattenuated lesion in the medial segment left lobe of liver too small to characterize. Pancreas: negative Spleen: negative Adrenal glands: negative Kidneys / retroperitoneum: 1 cm cyst seen within both kidneys. No renal stone. No renal obstructive uropathy change. Pelvic structures: Bladder is unremarkable. Bowel / peritoneum / mesenteries: No colonic mass lesions. No bowel inflammation. There appears to be greater degree of luminal narrowing of the duodenum as it passes anterior to the aorta with upstream dilated fluid-filled duodenum relative to the distal duodenum and proximal small bowel loops (axial images 73 through 70 series 2). This is well beyond the origin of the SMA and does not appear to represent an SMA "nutcracker" syndrome. The appearance is, however, different than the study from 2015. No obvious source for this "narrowing "readily apparent on this exam. Appendix normal with no evidence of appendicitis. Vessels: No aneurysmal dilatation. Musculoskeletal / Body wall: No acute bony pathology. Lymph node assessment: No pathologic lymph nodes. Lower chest: negative IMPRESSION: 1. Negative CT scan for acute intra-abdominal or pelvic pathology. No interval change when compared to previous study other than the apparent luminal narrowing of the third portion the duodenum as it crosses anterior to the aorta. The significance is uncertain but it does appear to be resulting in upstream dilated fluid-filled second portion of the duodenum. 2. Stable appearing liver cysts. VENOUS DOPP UPPER LEFT EXTREMI HISTORY: left arm mass, dvt? ADDITIONAL HISTORY: Right arm with "lump" of the medial aspect of the elbow. Post fall. Previous DVT in right basilic. PICC line in left arm five weeks prior. COMPARISON: Right arm ultrasound from 04/01/2018 FINDINGS: Grayscale compression, duplex and color Doppler interrogation of the left upper extremity veins was performed. Jugular vein - patent Subclavian vein - Negative. Axillary vein - Negative. Basilic vein - clot seen in the mid to distal basilic vein extending across the elbow joint. Cephalic vein - Negative. Brachial veins - Negative. At the point of palpable concern in the medial elbow there is a ill-defined heterogenous fluid collection without vascularity. This likely represents a hematoma considering history of trauma IMPRESSION: 1. Clot within the basilic vein in the left arm in its mid to distal aspect extending across the elbow joint. 2. Palpable area of concern corresponds to an ill-defined fluid collection likely representing evolving hematoma measuring approximately 2.5 cm in size. ED Course/Re-evaluation ED Course Patient is a 43-year-old male here with fever, left forearm swelling consistent with thrombosis. Patient is febrile at time of evaluation, tachycardic. Labs showed a leukocytosis, blood cultures were collected. Patient was given vancomycin and ceftriaxone. Patient was also given IV fluid boluses and Phenergan and fentanyl for symptom management. 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 Patient was stable at time of admission. Decision to Disposition Date: May 08, 2018 Decision to Disposition Time: 15:50 Depart Departure Latest Vital Signs Vital Signs Date Time Temp Pulse Resp B/P (MAP) Pulse Ox O2 Delivery O2 Flow Rate FiO2 05/08/18 18:50 99.8 05/08/18 16:56 ??? 05/08/18 16:41 94 05/08/18 16:30 108/65 (79) 05/08/18 15:16 20 Room Air Impression: Primary Impression: Abscess of left forearm Additional Impression: DVT of upper extremity (deep vein thrombosis) Condition: Improved Disposition: Admitted from ER Referrals: SHELLI CASTANEDA LITIGATION CLAIM REPRESENTATIVE (PCP) Problem Qualifiers Additional Impression: DVT of upper extremity (deep vein thrombosis) Affected thrombotic vein of extremity: brachial Chronicity: acute Laterality: bilateral Qualified Codes: I82.623 - Acute embolism and thrombosis of deep veins of upper extremity, bilateral MIRIAM SCHREIBER DO May 08, 2018 15:24
[2018-05-08] MEDS ORDERED: NS(*) 0.9% 1000 ML BAG 1,000 ML IV ONE ×3 (15:30→18:20)
[2018-05-08] MEDS ORDERED: VANCOMYCIN 1 GM ADDVIAL 1 GM in NS(*) 0.9% 250 ML ADDVAN BAG 250 ML IVPB ONE (15:30)
[2018-05-08] MEDS ORDERED: cefTRIAXone 1 GM VIAL IVP ONE (15:30)
[2018-05-08] MEDS ORDERED: KETOROLAC 30 MG/ML VIAL IVP ONE (15:30)
[2018-05-08] MEDS ORDERED: RIVA20TA PO (15:34)
[2018-05-08] MEDS ORDERED: PROMETHAZINE 25 MG/ML 1 ML AMP IVP ONE (15:40)
[2018-05-08] MEDS ORDERED: ONDANSETRON 4 MG/2 ML VIAL IVP ONE (15:40)
[2018-05-08] MEDS ORDERED: fentaNYL CITR 100 MCG/2 ML AMP IVP ONE ×2 (15:40→18:55)
[2018-05-08] MEDS ORDERED: INSU HUM REG 100 U/ML(ER ONLY) 10 ML VIAL SUBQ ONE ×2 (15:45→17:55)
[2018-05-08 15:49] LABS: PLATELET COUNT, AUTOMATED 326 K/uL (150-450)
[2018-05-08] MEDS ORDERED: IOPAMIDOL 76% 75 ML INFUS BTL 75 ML ONE (16:13)
[2018-05-08] MEDS ORDERED: VANCOMYCIN IVPB ONE (16:15)
[2018-05-08] MEDS ORDERED: [UNRECOGNIZED DRUG - OTHER] IVPB ONE (16:15)
[2018-05-08] MEDS ORDERED: INS HUM REG* 100 U/ML(ER ONLY) 100 UNIT in NS(*) 0.9% 100 ML BAG 99 ML IVPB ONE (17:15)
--- NOTE | 2018-05-08 17:15 | RADIOLOGY IMAGING REPORT ---
FACILITY: [facility] [place] PATIENT NAME: Tyson Ricardo : 1975 MR: [id number] V: [id number] EXAM DATE: ORDERING PHYSICIAN: MIRIAM SCHREIBER TECHNOLOGIST: Location: [facility] Patient: Tyson Ricardo : 1975 Visit/Account:[id number] Date of Sevice: 05/08/2018 VENOUS DOPP UPPER LEFT EXTREMI HISTORY: left arm mass, dvt? ADDITIONAL HISTORY: Right arm with "lump" of the medial aspect of the elbow. Post fall. Previous D VT in right basilic. PICC line in left arm five weeks prior. COMPARISON: Right arm ultrasound from 04/01/2018 FINDINGS: Grayscale compression, duplex and color Doppler interrogation of the left upper extremity veins was p erformed. Jugular vein - patent Subclavian vein - Negative. Axillary vein - Negative. Basilic vein - clot seen in the mid to distal basilic vein extending across the elbow joint. Cephalic vein - Negative. Brachial veins - Negative. At the point of palpable concern in the medial elbow there is a ill-defined heterogenous fluid collec tion without vascularity. This likely represents a hematoma considering history of trauma IMPRESSION: 1. Clot within the basilic vein in the left arm in its mid to distal aspect extending across the elb ow joint. 2. Palpable area of concern corresponds to an ill-defined fluid collection likely representing evolv ing hematoma measuring approximately 2.5 cm in size. Report Dictated By: Amish Lopez MD at 05/08/2018 5:03 PM Report E-Signed By: Amish Lopez MD at 05/08/2018 5:11 PM WSN:[email or web address]
--- NOTE | 2018-05-08 17:29 | RADIOLOGY IMAGING REPORT ---
FACILITY: [facility] PATIENT NAME: Tyson Ricardo : 1975 MR: [id number] V: [id number] EXAM DATE: ORDERING PHYSICIAN: MIRIAM SCHREIBER TECHNOLOGIST: Location: [facility] Patient: Tyson Ricardo : 1975 Visit/Account:[id number] Date of Sevice: 05/08/2018 ABDOMEN/PELVIS WITH CONTRAST Additional pertinent History: Abdominal pain TECHNIQUE: Spiral scan was through the abdomen and pelvis during injection of nonionic iodinated in travenous contrast. Contrast: 75 mL of IV Isovue-370. COMPARISON STUDIES: CT scan from 08/10/2014 One of the following dose optimization techniques was utilized in the performance of this exam: Autom ated exposure control; adjustment of the mA and/or kV according to the patient's size; or use of an i terative reconstruction technique. Specific details can be referenced in the facility's radiology C T exam operational policy.. FINDINGS: Liver / biliary: Small hypoattenuated lesion in the medial segment left lobe of liver too small to ch aracterize. Pancreas: negative Spleen: negative Adrenal glands: negative Kidneys / retroperitoneum: 1 cm cyst seen within both kidneys. No renal stone. No renal obstructive uropathy change. Pelvic structures: Bladder is unremarkable. Bowel / peritoneum / mesenteries: No colonic mass lesions. No bowel inflammation. There appears to be greater degree of luminal narrowing of the duodenum as it passes anterior to the aorta with upstre am dilated fluid-filled duodenum relative to the distal duodenum and proximal small bowel loops (axia l images 73 through 70 series 2). This is well beyond the origin of the SMA and does not appear to r epresent an SMA "nutcracker" syndrome. The appearance is, however, different than the study from 201 5. No obvious source for this "narrowing "readily apparent on this exam. Appendix normal with no evidence of appendicitis. Vessels: No aneurysmal dilatation. Musculoskeletal / Body wall: No acute bony pathology. Lymph node assessment: No pathologic lymph nodes. Lower chest: negative IMPRESSION: 1. Negative CT scan for acute intra-abdominal or pelvic pathology. No interval change when compared to previous study other than the apparent luminal narrowing of the third portion the duodenum as it crosses anterior to the aorta. The significance is uncertain but it does appear to be resulting in u pstream dilated fluid-filled second portion of the duodenum. 2. Stable appearing liver cysts. Report Dictated By: Amish Lopez MD at 05/08/2018 5:11 PM Report E-Signed By: Amish Lopez MD at 05/08/2018 5:25 PM WSN:[id number]
[2018-05-08] MEDS ORDERED: HEPARIN* SOD/D5W 25000 U/500ML 500 ML IV ONE (17:39)
[2018-05-08] MEDS: IBUPROFEN 200 MG TAB PO PRN (19:57)
[2018-05-08] MEDS: MORPHINE 1 MG/ML 30 ML PCA IV PRN (20:04)
[2018-05-08] MEDS: PROMETHAZINE 25 MG/ML 1 ML AMP IVP PRN (20:11)
--- NOTE | 2018-05-08 20:13 | History & Physical ---
History of Present Illness Chief Complaint Left arm pain, fevers and chills History of Present Illness 43yo male with PMHx significant for type 2 DM, recent right upper extremity DVT - currently on Xarelto, streptococcus anginosus bacteremia. He reports onset of pain, redness and swelling in left antecubital area mid-day yesterday. It seemed to progress fairly rapidly. He has developed fevers and chills as well as nausea with vomiting. He denies any CP or dyspnea. He denies any other rashes or skin lesions. He denies any urinary symptoms. He has had ongoing problems with his dentition and has not been able to see a dentist since his last hospitalization. He reports discussing his other RUE DVT with his primary care provider in [place], [place] and planned on seeing thoracic/vascular surgery regarding possible thoracic outlet syndrome. He denied missing any doses of his Xarelto. He was evaluated in the ER and found to have left upper extremity DVT, but was also febrile with elevated WBC count. His glucose was also significantly elevated, but he did not have acidosis/ketosis. He was recommended for admission. History Problems: (1) Hyperlipidemia Status: Chronic (2) Gout Status: Chronic (3) Obesity Status: Chronic (4) Degenerative disc disease, lumbar Status: Chronic (5) Type 2 diabetes mellitus Status: Chronic (6) Cellulitis of right upper extremity Status: Resolved (7) Dehydration Status: Resolved (8) HTN (hypertension) Status: Chronic (9) Poor dentition Status: Chronic (10) DVT of upper extremity (deep vein thrombosis) Status: Acute (11) Nephrolithiasis Status: Resolved (12) Migraine headache Status: Chronic (13) Degenerative arthritis of hip Status: Chronic (14) Chronic pain Status: Chronic (15) History of hip surgery Status: Resolved (16) History of lumbosacral spine surgery Status: Resolved Home Meds Active Scripts Ibuprofen (IBUPROFEN) 600 Mg Tablet, 600 MG PO Q8H PRN for PAIN, #30 TAB Prov:ELVIS OLEARY DO 04/03/18 Insulin Glargine 100 Un/Ml Pen (LANTUS SOLOSTAR PEN) 100 Unit/1 Ml Insuln.pen, 28 UNIT SUBQ QHS, #10 ML Prov:ELVIS OLEARY DO 04/03/18 Lancets (Blood Lancets) 30 Gauge Each, EACH, #100 Prov:ELVIS OLEARY DO 06/04/17 Blood Sugar Diagnostic (GLUCOSE TEST STRIP) 1 Each Strip, 1 EACH QID, #100 STRIP Prov:ELVIS OLEARY DO 06/04/17 [place], Insulin Disposable (INSULIN PEN NEEDLE) 1 Each Dis.needle, EACH MC QID, #100 Prov:ELVIS OLEARY DO 06/04/17 Reported Medications Rivaroxaban 20 Mg (XARELTO 20 MG) 20 Mg Tablet, 20 MG PO, TAB 05/08/18 Insulin Aspart (NOVOLOG) 100 Unit/Ml Soln, SUBQ 01/10/18 Lisinopril (LISINOPRIL) 40 Mg Tablet, 40 MG PO BID, TAB 05/31/17 Tizanidine Hcl (TIZANIDINE HCL) 2 Mg Capsule, 4 MG PO TID, CAPSULE 03/26/17 Aspirin (ASPIRIN) 81 Mg Tab.chew, 81 MG PO QDAY, TAB.CHEW TAKE 1 TABLET BY MOUTH EVERY DAY 08/10/14 Discontinued Scripts Ceftriaxone Sodium (CEFTRIAXONE) 2 Gm Vial, 2 GM IV QDAY, #14 VIAL Prov:ELVIS OLEARY DO 04/03/18 Oxycodone Hcl (OXYCODONE HCL) 5 Mg Capsule, 2 TAB PO Q6H PRN for PAIN, #30 CAPSULE Prov:ELVIS OLEARY DO 04/03/18 Rivaroxaban (XARELTO 10 MG TAB (OR EQUIV)) 10 Mg Tablet, 15 MG PO BID for 21 Days, #62 TAB Take 15mg BID for 21 days then take 20mg daily until instructed to stop. Prov:GRAY KAPADIAMARCELLUS DO 04/01/18 Allergies: Coded Allergies: diclofenac (Verified Allergy, Mild, HYPERGLYCEMIA , 03/30/18) cortisone (Verified Allergy, Unknown, 03/30/18) acetaminophen (Verified Adverse Reaction, Intermediate, MAKES HEADACHES WORSE, 03/30/18) Patient History: FH: [place] (myocardial infarction) MOTHER, , Age:42 FH: cancer FH: diabetes mellitus FH: heart disease FH: hypertension Hx Smoking: Yes Smoking Status: Former Smoker Exposure to Second Hand Smoke?: No Caffeine Intake: Coffee, Soda Caffeine/Cups Per Day: 3 CUPS COFFEE, 1 POP Hx Alcohol Use: No Hx Substance Use Disorder: No Social Drug Use: Never Review of Systems Constitutional: Fever, Chills Neurological: No Syncope Eyes: No Vision Change Cardiovascular: No Chest Pain, No Palpitations Respiratory: No Shortness of Breath Gastrointestinal: Nausea, Vomiting; No Diarrhea, No Hematemesis, No Hematochezia, No Melena Genitourinary: No Dysuria, No Hematuria Musculoskeletal: Pain Exam Vital Signs Vital Signs Date Time Temp Pulse Resp B/P (MAP) Pulse Ox O2 Delivery O2 Flow Rate FiO2 05/08/18 19:05 100.7 05/08/18 16:56 ??? 05/08/18 16:41 94 05/08/18 16:30 108/65 (79) 05/08/18 15:16 20 Room Air General Appearance: Alert, Awake, Other (tremulous) Neuro: Other (No focal deficits noted/CN intact) Eyes: PERRLA ENT: Oropharynx Clear, Other (dentition very poor with several teeth broken at gum line/he reports some tenderness over right mandibular jaw line) Neck: Other (several enlarged cervical LN) Cardiovascular: Other (Slightly tachycardic with short/soft systolic murmur heard at apex) Respiratory: Clear to Auscultation Chest: No Tenderness GI: Abd Soft and Non-Tender : No CVA Tenderness Extremities: Warm, Perfused, Other (large tender/indurated/erythematous area over left antecubital/proximal forearm - no fluccuence noted at this time ) Integumentary: Other (no other skin lesions were noted at this time/he does have some old appearing cords in right antecubital area) Psych: Alert & Oriented X3 Medical Decision Making Data Points Result Diagram: 05/08/18 1532 05/08/18 1532 Item Value Date Time Urine Mucus None /HPF 05/08/18 1850 Urine Bacteria Negative /HPF 05/08/18 1850 Urine Transitional Epithelial Cells Few /LPF 05/08/18 1850 Urine Squamous Epithelial Cells None /LPF 05/08/18 1850 Urine WBC 1 /HPF 05/08/18 1850 Urine RBC 2 /HPF 05/08/18 1850 Urine Leukocyte Esterase Negative 05/08/18 1850 Urine Urobilinogen Negative mg/dL 05/08/18 1850 Urine Bilirubin Negative 05/08/18 1850 Urine Nitrite Negative 05/08/18 1850 Urine Blood Small 05/08/18 1850 Urine Ketones Trace mg/dL 05/08/18 1850 Urine Glucose (UA) 500 mg/dL 05/08/181849 Urine Protein Negative mg/dL 05/08/18 185 Urine Specific [place] 1.043 05/08/18 185 Urine pH 5.0 pH 05/08/18 185 Urine Clarity Clear 05/08/18 185 Urine Color Yellow 05/08/18 185 Lipase 58 U/L 05/08/18 1532 Albumin 4.3 g/dl 05/08/18 1532 Alkaline Phosphatase 147 U/L H 05/08/18 1532 Total Protein 8.4 g/dl H 05/08/18 1532 Alanine Aminotransferase (ALT/SGPT) 17 U/L 05/08/18 1532 Aspartate Amino Transf (AST/SGOT) 17 U/L 05/08/18 1532 Total Bilirubin 1.2 mg/dl 05/08/18 1532 Calcium Level 9.8 mg/dl 05/08/18 1532 Lactate 4.0 mmol/L *H 05/08/18 1532 EKG / Imaging Imaging PATIENT NAME: Tyson Ricardo : 1975 MR: [id number] V: [id number] EXAM DATE: [id number] ORDERING PHYSICIAN: MIRIAM SCHREIBER TECHNOLOGIST: Location: [facility] Patient: Tyson Ricardo : 1975 Visit/Account:[id number] Date of Sevice: 05/08/2018 VENOUS DOPP UPPER LEFT EXTREMI HISTORY: left arm mass, dvt? ADDITIONAL HISTORY: Right arm with "lump" of the medial aspect of the elbow. Post fall. Previous DVT in right basilic. PICC line in left arm five weeks prior. COMPARISON: Right arm ultrasound from 04/01/2018 FINDINGS: Grayscale compression, duplex and color Doppler interrogation of the left upper extremity veins was performed. Jugular vein - patent Subclavian vein - Negative. Axillary vein - Negative. Basilic vein - clot seen in the mid to distal basilic vein extending across the elbow joint. Cephalic vein - Negative. Brachial veins - Negative. At the point of palpable concern in the medial elbow there is a ill-defined heterogenous fluid collection without vascularity. This likely represents a hematoma considering history of trauma IMPRESSION: 1. Clot within the basilic vein in the left arm in its mid to distal aspect extending across the elbow joint. 2. Palpable area of concern corresponds to an ill-defined fluid collection likely representing evolving hematoma measuring approximately 2.5 cm in size. Report Dictated By: Amish Lopez MD at 05/08/2018 5:03 PM Report E-Signed By: Amish Lopez MD at 05/08/2018 5:11 PM [id number] PATIENT NAME: Tyson Ricardo : 1975 MR: [id number] V: [id number] EXAM DATE: [id number] ORDERING PHYSICIAN: MIRIAM SCHREIBER TECHNOLOGIST: Location: [facility] Patient: Tyson Ricardo : 1975 Visit/Account:[id number] Date of Sevice: 05/08/2018 ABDOMEN/PELVIS WITH CONTRAST Additional pertinent History: Abdominal pain TECHNIQUE: Spiral scan was through the abdomen and pelvis during injection of nonionic iodinated intravenous contrast. Contrast: 75 mL of IV [id number]. COMPARISON STUDIES: CT scan from 08/10/2014 One of the following dose optimization techniques was utilized in the performance of this exam: Automated exposure control; adjustment of the mA and/or kV according to the patient's size; or use of an iterative reconstruction technique. Specific details can be referenced in the facility's radiology CT exam operational policy.. FINDINGS: Liver / biliary: Small hypoattenuated lesion in the medial segment left lobe of liver too small to characterize. Pancreas: negative Spleen: negative Adrenal glands: negative Kidneys / retroperitoneum: 1 cm cyst seen within both kidneys. No renal stone. No renal obstructive uropathy change. Pelvic structures: Bladder is unremarkable. Bowel / peritoneum / mesenteries: No colonic mass lesions. No bowel inflammation. There appears to be greater degree of luminal narrowing of the duodenum as it passes anterior to the aorta with upstream dilated fluid-filled duodenum relative to the distal duodenum and proximal small bowel loops (axial images 73 through 70 series 2). This is well beyond the origin of the SMA and does not appear to represent an SMA "nutcracker" syndrome. The appearance is, however, different than the study from 2014. No obvious source for this "narrowing "readily apparent on this exam. Appendix normal with no evidence of appendicitis. Vessels: No aneurysmal dilatation. Musculoskeletal / Body wall: No acute bony pathology. Lymph node assessment: No pathologic lymph nodes. Lower chest: negative IMPRESSION: 1. Negative CT scan for acute intra-abdominal or pelvic pathology. No interval change when compared to previous study other than the apparent luminal narrowing of the third portion the duodenum as it crosses anterior to the aorta. The significance is uncertain but it does appear to be resulting in upstream dilated fluid-filled second portion of the duodenum. 2. Stable appearing liver cysts. Report Dictated By: Amish Lopez MD at 05/08/2018 5:11 PM Report E-Signed By: Amish Lopez MD at 05/08/2018 5:25 PM WSN:[facility] Assessment and Plan Problems: (1) DVT of upper extremity (deep vein thrombosis) Status: Acute Assessment & Plan: Left upper extremity. It appears he could possibly have a septic thrombophlebitis. I would suspect the origin could easily be his poor dentition. 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 He has not been able to get his teeth repaired. This is also his second UE DVT and both sides have been involved. He probably has thoracic outlet as the etiology, although he did have a PICC line in his LUE - removed approximately 3 weeks ago. He has been on Xarelto up to this point and reports not missing any doses. Will place him on IV heparin and IV antibiotic coverage (vancomycin and Rocephin). Cultures of blood have been obtained in the ER. Will check echocardiogram again. His valves did look okay in March. He may need to see thoracic/vascular surgery very soon. (2) Type 2 diabetes mellitus Status: Chronic Assessment & Plan: Uncontrolled at this point. He does not have any acidosis at this point. Will try to get glucoses controlled with basal Lantus and SSI. (3) Poor dentition Status: Chronic Assessment & Plan: More than likely this is the etiology of his recurrent infections. I did discuss the need to get his teeth repaired and the potential complications up to and including . He seemed to understand this very well. (4) HTN (hypertension) Status: Chronic Assessment & Plan: Will hold his antihypertensive medications due to acute infection and potential for sepsis. Watch closely. Will resume in future if needed. (5) Chronic pain Status: Chronic Assessment & Plan: Will continue his Zanaflex for now. He will have IV analgesics for pain control acutely. Venous Thromboembolism Antithrombotics Is Pt On Any Antithrombotics?: Yes Exam Sepsis Risk: No Definite Risk KIERSTEN VILLAVICENCIO MD May 08, 2018 20:13
[2018-05-08] MEDS ORDERED: INSULIN GLARGINE 100 U/ML 3 ML PEN SUBQ SCH (21:00)
[2018-05-08] MEDS: INSULIN HUM LISPRO 100 UN/ML 3 ML VIAL SUBQ PRN (21:24)
[2018-05-08 21:36] LABS: INR 1.69
[2018-05-08] MEDS ORDERED: NORMOSOL R SOLN(*) 1000 ML BAG 1,000 ML IV ONE (22:10)
[2018-05-08] MEDS ORDERED: MIDAZOLAM 2 MG/2 ML VIAL ONE (22:33)
[2018-05-08] MEDS ORDERED: fentaNYL CITR 100 MCG/2 ML AMP ONE ×3 (22:33→23:02)
[2018-05-08] MEDS ORDERED: LIDOCAINE MPF 1% 5 ML VIAL ONE (22:34)
[2018-05-08] MEDS ORDERED: PROPOFOL EMUL(*) 10MG/ML 20 ML 40 ML ONE (22:34)
[2018-05-08] MEDS ORDERED: BUPIVACAINE 0.5% INJ 50ML VIAL INFIL ONE (22:39)
--- NOTE | 2018-05-08 22:50 | General Surgery Consultation ---
History of Present Illness Requesting Physician Dr. Bhakta Reason for Consult Left Arm Abscess; Consideration of Central Venous Access Chief Complaint Left Arm Pain, Fevers/Chills, SubAcute Right Upper Arm DVT & Acute Left Upper Arm DVT History of Present Illness Mr. Ricardo is a 43yo male with a history significant for a subacute right upper arm DVT related to trauma with possible concommitant thoracic outlet obstruction which has not been definitively diagnosed. He has been on Xarelto and had a PICC line in his left upper arm within the past couple of months. He presents today with an abscess in his left antecubital fossa which is distal to the PICC line site. I do not see any needle punctures over the site. His glucose is greater than 400. He has two peripheral IVs on the right arm but they are not amenable to blood draws. History Home Meds Active Scripts Ibuprofen (IBUPROFEN) 600 Mg Tablet, 600 MG PO Q8H PRN for PAIN, #30 TAB Prov:ELVIS OLEARY DO 04/03/18 Insulin Glargine 100 Un/Ml Pen (LANTUS SOLOSTAR PEN) 100 Unit/1 Ml Insuln.pen, 28 UNIT SUBQ QHS, #10 ML Prov:ELVIS OLEARY DO 04/03/18 Lancets (Blood Lancets) 30 Gauge Each, EACH, #100 Prov:ELVIS OLEARY DO 06/04/17 Blood Sugar Diagnostic (GLUCOSE TEST STRIP) 1 Each Strip, 1 EACH MC QID, #100 STRIP Prov:ELVIS OLEARY DO 06/04/17 [place], Insulin Disposable (INSULIN PEN NEEDLE) 1 Each Dis.needle, EACH MC QID, #100 Prov:ELVIS OLEARY DO 06/04/17 Reported Medications Rivaroxaban 20 Mg (XARELTO 20 MG) 20 Mg Tablet, 20 MG PO, TAB 05/08/18 Insulin Aspart (NOVOLOG) 100 Unit/Ml Soln, SUBQ SS 01/10/18 Lisinopril (LISINOPRIL) 40 Mg Tablet, 40 MG PO BID, TAB 05/31/17 Tizanidine Hcl (TIZANIDINE HCL) 2 Mg Capsule, 4 MG PO TID, CAPSULE 03/26/17 Aspirin (ASPIRIN) 81 Mg Tab.chew, 81 MG PO QDAY, TAB.CHEW TAKE 1 TABLET BY MOUTH EVERY DAY 08/10/14 Discontinued Scripts Ceftriaxone Sodium (CEFTRIAXONE) 2 Gm Vial, 2 GM IV QDAY, #14 VIAL Prov:ELVIS OLEARY DO 04/03/18 Oxycodone Hcl (OXYCODONE HCL) 5 Mg Capsule, 2 TAB PO Q6H PRN for PAIN, #30 CAPSULE Prov:ELVIS OLEARY DO 04/03/18 Rivaroxaban (XARELTO 10 MG TAB (OR EQUIV)) 10 Mg Tablet, 15 MG PO BID for 21 Days, #62 TAB Take 15mg BID for 21 days then take 20mg daily until instructed to stop. Prov:MARCELLUS CASTANON DO 04/01/18 Allergies: Coded Allergies: diclofenac (Verified Allergy, Mild, HYPERGLYCEMIA , 03/30/18) cortisone (Verified Allergy, Unknown, 03/30/18) acetaminophen (Verified Adverse Reaction, Intermediate, MAKES HEADACHES WORSE, 03/30/18) Family History: FH: [place] (myocardial infarction) MOTHER, , Age:42 FH: cancer FH: diabetes mellitus FH: heart disease FH: hypertension Review of Systems All Systems Reviewed/Normal: Yes, Except as Noted Constitutional: Fever, Chills Gastrointestinal: Nausea Genitourinary: No Dysuria Musculoskeletal: Pain (left arm acutely) Exam Vital Signs Vital Signs Date Time Temp Pulse Resp B/P (MAP) Pulse Ox O2 Delivery O2 Flow Rate FiO2 05/08/18 21:53 112 05/08/18 21:30 13 180/72 (108) 92 Room Air 05/08/18 21:10 100.7 General Appearance: Alert, Awake, Other Neuro: No Gross deficits Eyes: PERRLA ENT: Normal Neck: No Masses Cardiovascular: Regular Rate and Rhythm Respiratory: No Respiratory Distress GI: Abd Soft and Non-Tender Extremities: Other (5cm fluctuant collection left antecubital with overlying erythema and warm to touch; does not track up basilic vein more than a couple centimeters; left upper arm and right arm are asymptomatic, minimal edema/swelling in distal left arm) Psych: Alert & Oriented X3, Appropriate Mood & Affect Medical Decision Making Data Points Result Diagram: 05/08/18 1532 05/08/18 1532 Pre-Admit Course Medical Record Review: Yes Assessment and Plan Problems: (1) Poor dentition Status: Chronic (2) DVT of upper extremity (deep vein thrombosis) Status: Acute Assessment & Plan: 05/08/2018: has been on Xarleto but off for at least 24hrs. PTT is normal. Anti-Xa is therapeutic. INR 1.6. Will plan to use therapeutic Lovenox postoperatively in an attempt to avoid a central line given the need for anticoagulation and the presence of DVTs in both upper extremities. (3) Cellulitis of right upper extremity Status: Resolved (4) Abscess of left forearm Assessment & Plan: 05/08/2018: abscess in the left antecubital fossa. It appears to be more of an abscess than a septic thrombophlebitis based on that it is a fluid collection rather than tracking in the vein. There is an associated DVT in the basilic vein. Due to its size, I do not expect it to improve with antibiotics alone so will take him to the OR now for an I&D with cultures. I have discussed the plan and details with the patient and Dr. Bhakta. All are in agreement to proceed as described. Expect to be able to use his two peripheral IVs for antibiotics with rapid conversion to oral regimen. Time Spent: > 30 min Venous Thromboembolism VTE Risk Physician Assess for VTE Risk: Yes Patient's VTE Risk: High Antithrombotics Is Pt On Any Antithrombotics?: Yes Problem Qualifiers (1) DVT of upper extremity (deep vein thrombosis): Affected thrombotic vein of extremity: brachial Chronicity: acute Laterality: bilateral Qualified Codes: I82.623 - Acute embolism and thrombosis of deep veins of upper extremity, bilateral RODY JORDAN MD May 08, 2018 22:50
[2018-05-08] MEDS ORDERED: ONDANSETRON 4 MG/2 ML VIAL ONE (23:03)
--- NOTE | 2018-05-08 23:29 | Post Operative Note ---
Operative Note - ENT Operative Day Date: May 08, 2018 Time: 23:25 Physicians Surgeon: Rody Aragon MD, FACS Manager Technical Training: None Anesthesia: Local MAC Diagnosis Pre-Op Diagnosis: Left Forearm/Antecubital Abscess Bilateral Upper Arm DVTs Post-Op Diagnosis: Same Procedure Findings: Abscess Procedure(s): Incision & Drain Deep Forearm Abscess Description Taken to the OR and placed in supine position. 20g IV placed in left foot per anesthesia. Left arm prepped and draped. 0.5% Marcaine plain injected over incision site 4cm incision made transversely over the abscess into the cavity. Cultures obtained. Cavity digitally explored then irrigated with saline. Packed with saline soaked kerlix then wrapped with ABD and Coban. Tolerated the procedure well. Returned to ICU for recovery. Specimen Removed:(Maybe N/A): Aerobic and anaerobic cultures of abscess Complications: None Fluids Estimated Blood Loss: 10ml RODY ARAGON MD May 08, 2018 23:29
[2018-05-08] MEDS: NS(*) 0.9% 1000 ML BAG 1,000 ML IV PRN (23:58)
[2018-05-09] VITALS (26 sets, daily range): BP systolic 127–223; BP diastolic 63–129; Ht 177.8 cm; Wt 97.1 kg
[2018-05-09] MEDS ORDERED: CALCIUM CARBONATE 500 MG CHEW PO PRN (00:10)
[2018-05-09] MEDS: INSULIN HUM LISPRO 100 UN/ML 3 ML VIAL SUBQ PRN ×6 (00:20→20:26)
[2018-05-09] MEDS: VANCOMYCIN(*) 1 GM VIAL 1 GM, VANCOMYCIN (*) 0.5 GM VIAL 0.25 GM in NS(*) 0.9% 250 ML B... IVPB SCH ×3 (01:19→17:38)
[2018-05-09] MEDS: PROMETHAZINE 25 MG/ML 1 ML AMP IVP PRN ×3 (01:43→17:33)
[2018-05-09] MEDS ORDERED: ENOXAPARIN 100 MG/ML SYR SC SCH (02:00)
[2018-05-09] MEDS: IBUPROFEN 200 MG TAB PO PRN ×2 (02:50→17:29)
[2018-05-09] MEDS: cefTRIAXone(*) 1 GM VIAL 1 GM in NS(*) 0.9% 100 ML ADDVANT BAG 100 ML IVPB SCH ×2 (04:17→16:11)
[2018-05-09 05:31] LABS: PLATELET COUNT, AUTOMATED 212 K/uL (150-450)
[2018-05-09] MEDS ORDERED: KCL (*) 20 MEQ/100 ML PREMIX 100 ML IV ONE ×2 (06:20→10:00)
[2018-05-09] MEDS: NS(*) 0.9% 1000 ML BAG 1,000 ML IV PRN ×2 (06:31→19:40)
[2018-05-09] MEDS: SUCRALFATE 1 GM TAB PO SCH ×4 (06:31→20:27)
[2018-05-09] MEDS: MORPHINE 1 MG/ML 30 ML PCA IV PRN ×2 (06:49→20:56)
[2018-05-09] MEDS: LISINOPRIL 20 MG TAB PO SCH ×2 (08:55→20:27)
[2018-05-09] MEDS: PANTOPRAZOLE SOD 40 MG TABEC PO SCH ×2 (08:55→20:26)
--- NOTE | 2018-05-09 10:13 | Hospitalist Progress Note ---
Subjective Progress Notes Subjective This patient was admitted for an abscess involving the left arm. He did have operative drainage last night. Patient Complains of: Cardiovascular: No: Chest Pain Respiratory: No: Shortness of Breath Physical Exam Vital Signs Date Time Temp Pulse Resp B/P (MAP) Pulse Ox O2 Delivery O2 Flow Rate FiO2 05/09/18 09:00 102 12 147/114 (125) 90 Room Air 05/09/18 08:13 98.3 05/09/18 06:00 2.0 Intake and Output 05/09/18 07:00 Intake Total 1883 ml Output Total 1060 ml Balance 823 ml Intake Oral 300 ml IV Total 1583 ml Output Urine Total 760 ml Emesis 300 ml # [place] 1 Cardiovascular: Regular Rate and Rhythm Respiratory: Clear to Auscultation Result Diagram: 05/09/18 0513 05/09/18 0513 Item Value Date Time Gram Stain - Final Resulted 05/08/18 2330 Abscess Arm Blood Culture - Preliminary Resulted 05/08/18 1552 Blood Peripheral Draw NO GROWTH AFTER 1 DAY, REINCUBATED Blood Culture - Preliminary Resulted 05/08/18 1552 Blood Peripheral Draw NO GROWTH AFTER 1 DAY, REINCUBATED Assessment and Plan Problems: (1) DVT of upper extremity (deep vein thrombosis) Status: Acute Assessment & Plan: He was found to have clot in the left basilic vein and also had an abscess in the antecubital fossa. He is on full dose Lovenox, and will likely need to remain on this until he can follow up with vascular surgery. He is being evaluated for thoracic outlet syndrome. (2) Abscess of left arm Assessment & Plan: He did undergo surgical exploration yesterday. It is reported that puss was drained and sent for culture. A gram stain is showing gram positive cocci in chains. He is currently on treatment with ceftriaxone and vancomycin. 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 I suspect the vancomycin can be discontinued tomorrow. (3) Type 2 diabetes mellitus Status: Chronic Assessment & Plan: He is on chronic treatment with Lantus and and NovoLog, but is noncompliant with medications. He is currently receiving Lantus and sliding scale level #2. We increased the Lantus dose today. (4) Poor dentition Status: Chronic Assessment & Plan: More than likely this is the etiology of his recurrent infections. We have discuss the need to get his teeth repaired and the potential complications up to and including . He seemed to understand this very well. (5) HTN (hypertension) Status: Chronic Assessment & Plan: He is on chronic treatment with lisinopril, which was restarted today. (6) Chronic pain Status: Chronic Assessment & Plan: He is on chronic treatment with Zanaflex. Exam Sepsis Risk: Sepsis Risk Problem Qualifiers (1) DVT of upper extremity (deep vein thrombosis): Affected thrombotic vein of extremity: brachial Chronicity: acute Laterality: bilateral Qualified Codes: I82.623 - Acute embolism and thrombosis of deep veins of upper extremity, bilateral (2) HTN (hypertension): Hypertension type: essential hypertension Qualified Codes: I10 - Essential (primary) hypertension ELVIS OLEARY DO May 09, 2018 10:13
--- NOTE | 2018-05-09 10:17 | General Surgery Progress Note ---
Subjective Progress Notes Subjective feels better today, eating breakfast Physical Exam Vital Signs Date Time Temp Pulse Resp B/P (MAP) Pulse Ox O2 Delivery O2 Flow Rate FiO2 05/09/18 09:00 102 12 147/114 (125) 90 Room Air 05/09/18 08:13 98.3 05/09/18 06:00 2.0 Intake and Output 05/09/18 07:00 Intake Total 1883 ml Output Total 1060 ml Balance 823 ml Intake Oral 300 ml IV Total 1583 ml Output Urine Total 760 ml Emesis 300 ml # Emeses 1 General Appearance: Alert, Awake, No Acute Distress Eyes: PERRLA ENT: Normal Extremities: Other (changed outer dressing with bloody drainage; erythema improving; edematous distal arm..likely due to coban wrap) Result Diagram: 05/09/1851205/09/18512 Assessment and Plan Problems: (1) Poor dentition Status: Chronic (2) DVT of upper extremity (deep vein thrombosis) Status: Acute Assessment & Plan: 05/08/2018: has been on Xarleto but off for at least 24hrs. PTT is normal. Anti-Xa is therapeutic. INR 1.6. Will plan to use therapeutic Lovenox postoperatively in an attempt to avoid a central line given the need for anticoagulation and the presence of DVTs in both upper extremities. (3) Cellulitis of right upper extremity Status: Resolved (4) Abscess of left forearm Status: Acute Assessment & Plan: 05/08/2018: abscess in the left antecubital fossa. It appears to be more of an abscess than a septic thrombophlebitis based on that it is a fluid collection rather than tracking in the vein. There is an associated DVT in the basilic vein. Due to its size, I do not expect it to improve with antibiotics alone so will take him to the OR now for an I&D with cultures. I have discussed the plan and details with the patient and Dr. Bhakta. All are in agreement to proceed as described. Expect to be able to use his two peripheral IVs for antibiotics with rapid conversion to oral regimen. 05/09/2018: s/p drainage of abscess, gram stain suggestive of Strep. Removed coban pressure dressing which is likely cause of distal edema. Will change packing at bedside tomorrow. Time Spent: < 30 min Exam Sepsis Risk: Sepsis Risk Problem Qualifiers (1) DVT of upper extremity (deep vein thrombosis): Affected thrombotic vein of extremity: brachial Chronicity: acute Laterality: bilateral Qualified Codes: I82.623 - Acute embolism and thrombosis of deep veins of upper extremity, bilateral RODY JORDAN MD May 09, 2018 10:17
--- NOTE | 2018-05-09 13:56 | Medical Nutrition Therapy ---
Nutrition Anthropometrics Height (Inches): 70.00 Height (Calculated Centimeters: 177.325309 Weight (Pounds): 214 Weight (Calculated Kilograms): 97.324 BMI: 30.7 [place] Nutrition Score: Adequate [place] Nutrition Risk Score: 22 Dietary Referral Nutrition Risk Factors: Unplanned Loss >10lbs Nutrition Risk Comment: LOST 40 # SINCE OCTOBER 2012 Physical Findings Physical Appearance: Obese BMI 30-39 Skin Appearance Skin Appearance: Edema Edema Location Modifier: Both Edema Location: Upper Extremity Type of Edema: Degree of Edema: Gastrointestinal Symptoms GI Symtoms: Nausea, Vomiting Tube Present: Bowel Sounds: Recent Bowel Pattern: Stool Characteristics: Nutrition/Food History No Significant Nutr. HX Nutritional Diagnosis Nutritional Risk Acuity 2: Blood Glucose > 300mg/dl, Abcess/Non-Healing Wound Nutritional Risk Acuity 4: Good Appetite Past Medical History: Hx of degenerative disc disease, spine surgery, hyperlipidemia, obesity, Gout, HTN, nephrolithiasis, T2DM. Nutritional Acuity: 2-Moderate Nutrition Diagnosis: Increased Nutrient Needs Nutrition Etiology: Physiological Causes Nutrition Problem/Etiology/Sym: Increased Nutrient Needs related to increased demand for nutrients secondary to wound healing and infection AEB low albumin status and abcess of ULE indicating increased stress and increased metabolic needs. Energy Requirement: 2430 ([place] Jeor: Actual BW X 1.3) Protein Requirement: 78 (Actual BW Kg X .8) Fluid Requirement: 2430 Diet Type: Diabetic Nutrition Intervention: Cont diet as ordered, Check glucose Drug: Diuretics Nutrition Monitoring & Eval Nutrition Goals: Eat 50-100% Meal RD Patient Assessment Time: [address] Assessment Type: RD Assessment Patient Nutrition Acuity: 2-Moderate Follow Up Date: May 12, 2018 Nutritional Comment: 05/09/18 Pt admitted for DVT of upper extremity and abscess of left forearm. High WBC, Low H/H, Glu 274, Alb 3.2, Low Na+/K+. Class I obesity with BMI of 30.7. Receiving Lantus 30u q HS and Lispro SSI for diabetes management. History of poor dentation. Receiving diabetes diet with no reports of intake. Follow labs, intake, etc. -MONICA KASPER May 09, 2018 13:56
[2018-05-09] MEDS: ENOXAPARIN 100 MG/ML SYR SC SCH (13:59)
[2018-05-09] MEDS ORDERED: METOPROLOL TART 5 MG/5 ML VIAL IVP ONE (20:10)
[2018-05-09] MEDS: INSULIN GLARGINE 100 U/ML 3 ML PEN SUBQ SCH (20:27)
[2018-05-09] MEDS: ZOLPIDEM TARTRATE 10 MG TAB PO SCH (20:27)
[2018-05-10] VITALS (20 sets, daily range): BP systolic 125–177; BP diastolic 69–118
[2018-05-10] MEDS: ENOXAPARIN 100 MG/ML SYR SC SCH ×2 (01:20→14:38)
[2018-05-10] MEDS: VANCOMYCIN(*) 1 GM VIAL 1 GM, VANCOMYCIN (*) 0.5 GM VIAL 0.25 GM in NS(*) 0.9% 250 ML B... IVPB SCH ×3 (01:20→18:03)
[2018-05-10] MEDS: IBUPROFEN 200 MG TAB PO PRN (01:22)
[2018-05-10] MEDS: cefTRIAXone(*) 1 GM VIAL 1 GM in NS(*) 0.9% 100 ML ADDVANT BAG 100 ML IVPB SCH ×2 (04:10→15:40)
[2018-05-10] MEDS: SUCRALFATE 1 GM TAB PO SCH ×4 (06:08→21:11)
[2018-05-10 06:09] LABS: PLATELET COUNT, AUTOMATED 201 K/uL (150-450)
[2018-05-10] MEDS: PROMETHAZINE 25 MG/ML 1 ML AMP IVP PRN ×3 (06:11→17:06)
[2018-05-10] MEDS: KCL (*) 20 MEQ/100 ML PREMIX 100 ML IV SCH ×2 (06:30→08:30)
[2018-05-10] MEDS ORDERED: oxyCODONE HCL 5 MG CAP PO PRN (08:40)
[2018-05-10] MEDS ORDERED: CELECOXIB 200 MG CAP PO PRN (08:40)
[2018-05-10] MEDS ORDERED: POTASSIUM CHL 10 MEQ TABCR PO SCH (08:58)
[2018-05-10] MEDS: oxyCODONE HCL 5 MG CAP PO PRN ×3 (09:22→22:11)
[2018-05-10] MEDS: PANTOPRAZOLE SOD 40 MG TABEC PO SCH ×2 (09:22→21:11)
[2018-05-10] MEDS: LISINOPRIL 20 MG TAB PO SCH ×2 (09:22→21:10)
[2018-05-10] MEDS: POTASSIUM CHL 20 MEQ TABCR PO SCH ×2 (09:22→17:05)
--- NOTE | 2018-05-10 09:24 | Hospitalist Progress Note ---
Subjective Progress Notes Subjective Overall, feeling much better. Still tachycardic. Physical Exam Vital Signs Date Time Temp Pulse Resp B/P (MAP) Pulse Ox O2 Delivery O2 Flow Rate FiO2 05/10/18 06:00 109 10 157/93 (114) 93 Room Air 05/10/18 05:00 98.7 05/09/18 06:00 2.0 Intake and Output 05/10/18 06:59 Intake Total 4356 ml Output Total 1525 ml Balance 2831 ml Intake Oral 1390 ml IV Total 2966 ml Output Urine Total 1525 ml # Voids 2 # Bowel Movements 2 General Appearance: Alert, Awake, No Acute Distress ENT: Other (No obvious swelling or erythema in the mouth ) Cardiovascular: Other (tachy, regular) Respiratory: Clear to Auscultation Extremities: No Edema Result Diagram: 05/10/1835 05/10/18534 Monitor Interpretation: Sinus Tachycardia Assessment and Plan Problems: (1) Abscess of left arm Assessment & Plan: He did undergo surgical exploration on 05/08. A gram stain is showing gram positive cocci in chains from the wound and 1 of 2 blood cultures. He is currently on treatment with ceftriaxone and vancomycin. 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 Echo is pending. He denies any mouth or neck soreness/swelling that would be worrisome for an abscess, but might need to do a CT of the head and neck to evaluate. Afebrile since last evening. WBC now normal. Still tachycardic. (2) DVT of upper extremity (deep vein thrombosis) Status: Acute Assessment & Plan: He was found to have clot in the left basilic vein (site of a PICC line in March) and also had an abscess in the antecubital fossa. He is on full dose Lovenox, and will likely need to remain on this until he can follow up with vascular surgery. He is being evaluated for thoracic outlet syndrome. (3) Type 2 diabetes mellitus Status: Chronic Assessment & Plan: He is on chronic treatment with Lantus and and NovoLog, but is noncompliant with medications. He is currently receiving Lantus and sliding scale level #2. We increased the Lantus dose today. (4) Poor dentition Status: Chronic Assessment & Plan: This could be the etiology of his recurrent infections. We have discussed the need to get his teeth repaired and the potential complications up to and including . He seemed to understand this very well. (5) HTN (hypertension) Status: Chronic Assessment & Plan: He is on chronic treatment with lisinopril, which was restarted today. (6) Chronic pain Status: Chronic Assessment & Plan: He is on chronic treatment with Zanaflex. Exam Sepsis Risk: Sepsis Risk Problem Qualifiers (1) DVT of upper extremity (deep vein thrombosis): Affected thrombotic vein of extremity: brachial Chronicity: acute Laterality: bilateral Qualified Codes: I82.623 - Acute embolism and thrombosis of deep veins of upper extremity, bilateral (2) HTN (hypertension): Hypertension type: essential hypertension Qualified Codes: I10 - Essential (primary) hypertension YVONNE YOUSSEF MD May 10, 2018 09:24
[2018-05-10] MEDS: cloNIDine HCL 0.1 MG TAB PO SCH ×2 (11:52→21:11)
[2018-05-10] MEDS ORDERED: MORPHINE 4 MG/ML SDV IVP ONE (11:55)
[2018-05-10] MEDS: INSULIN HUM LISPRO 100 UN/ML 3 ML VIAL SUBQ PRN ×3 (12:05→21:13)
--- NOTE | 2018-05-10 16:27 | General Surgery Progress Note ---
Subjective Progress Notes Subjective Feels better but arm is more swollen Physical Exam Vital Signs Date Time Temp Pulse Resp B/P (MAP) Pulse Ox O2 Delivery O2 Flow Rate FiO2 05/10/18 12:00 109 05/10/18 10:00 98.7 8 177/113 (134) 90 Room Air 05/09/18 06:00 2.0 Intake and Output 05/10/18 07:00 Intake Total 4596 ml Output Total 1525 ml Balance 3071 ml Intake Oral 1630 ml IV Total 2966 ml Output Urine Total 1525 ml # Voids 2 # Bowel Movements 2 General Appearance: Alert, Awake Neuro: No Gross deficits Eyes: PERRLA Respiratory: No Respiratory Distress Extremities: Other (Dressing changed; small amount of purulence in base, replaced with saline wet to dry dressing) Psych: Alert & Oriented X3, Appropriate Mood & Affect Result Diagram: 05/10/18 0535 05/10/18 0535 Monitor Interpretation: Sinus Tachycardia Assessment and Plan Problems: (1) Poor dentition Status: Chronic (2) DVT of upper extremity (deep vein thrombosis) Status: Acute Assessment & Plan: 05/08/2018: has been on Xarleto but off for at least 24hrs. PTT is normal. Anti-Xa is therapeutic. INR 1.6. Will plan to use therapeutic Lovenox postoperatively in an attempt to avoid a central line given the need for anticoagulation and the presence of DVTs in both upper extremities. (3) Cellulitis of right upper extremity Status: Resolved (4) Abscess of left forearm Status: Acute Assessment & Plan: 05/08/2018: abscess in the left antecubital fossa. It appears to be more of an abscess than a septic thrombophlebitis based on that it is a fluid collection rather than tracking in the vein. There is an associated DVT in the basilic vein. Due to its size, I do not expect it to improve with antibiotics alone so will take him to the OR now for an I&D with cultures. I have discussed the plan and details with the patient and Dr. Bhakta. All are in agreement to proceed as described. Expect to be able to use his two peripheral IVs for antibiotics with rapid conversion to oral regimen. 05/09/2018: s/p drainage of abscess, gram stain suggestive of Strep. Removed coban pressure dressing which is likely cause of distal edema. Will change packing at bedside tomorrow. 05/10/2018: dressing changed, continue daily wet-to-dry dressings. Overall improving, leukocytosis resolved; transfer to med/surg. Exam Sepsis Risk: No Definite Risk Problem Qualifiers (1) DVT of upper extremity (deep vein thrombosis): Affected thrombotic vein of extremity: brachial Chronicity: acute Laterality: bilateral Qualified Codes: I82.623 - Acute embolism and thrombosis of deep veins of upper extremity, bilateral RODY JORDAN MD May 10, 2018 16:27
--- NOTE | 2018-05-10 16:56 | Antimicrobial Stewardship ---
Antimicrobial Stewardship Empiricly appropriate: Yes Significant PMH: Yes (03/2018 Blood Cx (+) with S. anginosus- source likely poor dentition) Support empiric regimen: Yes Comment 03/2018- Pt with history of S. anginosus bacteremia, on empiric Vancomycin and Ceftriaxone Approriate Cultures done: Yes (05/08/18- Blood Cx (+) growing GPC in chains 05/09/18 - wound Cx from I&D - GPC in chains) Renal/Hepatic dosing: Yes Serum concentration checked: Yes Comment Vancomycin Trough Monitorin05/09/18: Trough = 12.4 , Vanco 2.25g IV x 1, then Vanco 1.25g IV Q8H --> Continue 05/10/18: Trough = 15.38, Vanco 1.25g IV Q8H, continue 05/11/18: Trough ordered for 0830 Clinically stable/improving: Yes (WBC now within normal limits, afebrile currently, pt reports feeling much better, continue to monitor) IV to PO Opportunity: No Determine cumulative duration: 05/10/18 is Day 2 Determine standard duration: minimum of 14 days, source control required Comment 43yo M with history of bacteremia secondary to poor dentition, s/p two PICC lines with subsequent DVTs (currently being worked up for thoracic outlet syndrome). Echo completed without evidence of valvular vegetations. Prior hospitalization in 03/2018--grew s. anginosus, likely the same GPC in chains found in his wound cx and blood cx, empiric ceftriaxone and vancomycin until culture results come back. Continue Vancomycin and Ceftriaxone, de-escalate therapy as appropriate once culture return. Jessy Petersen, PharmD, BCOP JESSY PETERSEN May 10, 2018 16:56
[2018-05-10] MEDS: NS(*) 0.9% 1000 ML BAG 1,000 ML IV PRN (20:38)
[2018-05-10] MEDS: ZOLPIDEM TARTRATE 10 MG TAB PO SCH (21:11)
[2018-05-10] MEDS: INSULIN GLARGINE 100 U/ML 3 ML PEN SUBQ SCH (21:13)
[2018-05-11] MEDS: ENOXAPARIN 100 MG/ML SYR SC SCH ×2 (01:58→13:39)
[2018-05-11] MEDS: VANCOMYCIN(*) 1 GM VIAL 1 GM, VANCOMYCIN (*) 0.5 GM VIAL 0.25 GM in NS(*) 0.9% 250 ML B... IVPB SCH ×3 (01:58→17:02)
[2018-05-11 02:00] VITALS: BP 149/91
[2018-05-11] MEDS: oxyCODONE HCL 5 MG CAP PO PRN ×5 (02:16→20:57)
[2018-05-11] MEDS: PROMETHAZINE 25 MG/ML 1 ML AMP IVP PRN ×2 (02:17→06:32)
[2018-05-11] MEDS: cefTRIAXone(*) 1 GM VIAL 1 GM in NS(*) 0.9% 100 ML ADDVANT BAG 100 ML IVPB SCH ×2 (04:35→15:15)
[2018-05-11 05:52] LABS: PLATELET COUNT, AUTOMATED 267 K/uL (150-450)
[2018-05-11] MEDS: SUCRALFATE 1 GM TAB PO SCH ×4 (05:54→20:57)
[2018-05-11 08:59] VITALS: BP 157/95
[2018-05-11] MEDS: cloNIDine HCL 0.1 MG TAB PO SCH ×2 (09:08→20:56)
[2018-05-11] MEDS: POTASSIUM CHL 20 MEQ TABCR PO SCH ×2 (09:08→16:09)
[2018-05-11] MEDS: LISINOPRIL 20 MG TAB PO SCH ×2 (09:08→20:56)
[2018-05-11] MEDS: PANTOPRAZOLE SOD 40 MG TABEC PO SCH ×2 (09:09→20:57)
[2018-05-11] MEDS: INSULIN HUM LISPRO 100 UN/ML 3 ML VIAL SUBQ PRN ×4 (09:10→20:59)
--- NOTE | 2018-05-11 09:50 | Hospitalist Progress Note ---
Subjective Progress Notes Subjective He complains of pain in left antecubital/abscess area. Some recurrent fever. Physical Exam Vital Signs Date Time Temp Pulse Resp B/P (MAP) Pulse Ox O2 Delivery O2 Flow Rate FiO2 05/11/18 08:59 98.1 96 9 157/95 (115) 94 Room Air 05/09/18 06:00 2.0 Intake and Output 05/11/18 07:00 Intake Total 2825 ml Output Total 1800 ml Balance 1025 ml Intake Oral 1910 ml IV Total 915 ml Output Urine Total 1600 ml Emesis 200 ml # Voids 5 # Bowel Movements 1 # Emeses 1 General Appearance: Alert, Awake Extremities: Other (left antecubital site appears clean/surrounding edema induration with minimal-moderate erythema) Psych: Alert & Oriented X3 Result Diagram: 05/11/1852705/11/18527 Assessment and Plan Problems: (1) Abscess of left arm Assessment & Plan: He did undergo surgical I&D with Dr. Aragon on 05/08. A gram stain is showing gram positive cocci in chains from the wound and 2 of 2 blood cultures. He is currently on treatment with ceftriaxone and vancomycin. 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 Transthoracic echocardiogram did not show any specific valvular abnormalities. He has very poor dentition, but denies any specific mouth or neck soreness/swelling that would be worrisome for an abscess. Might need to do a CT of the head and neck to evaluate. WBC now normal, but had some fever and still tachycardic at times. Will discuss with cardiology regarding whether or not would need RIKA. (2) DVT of upper extremity (deep vein thrombosis) Status: Acute Assessment & Plan: He was found to have clot in the left basilic vein (site of a PICC line in March) and also had an abscess in the left antecubital fossa. He is on full dose Lovenox and will likely need to remain on this until he can follow up with vascular surgery. He is being evaluated for thoracic outlet syndrome. (3) Type 2 diabetes mellitus Status: Chronic Assessment & Plan: He is on chronic treatment with Lantus and and NovoLog, but has been noncompliant with medications. He is currently receiving Lantus and sliding scale level #2. We increased the Lantus dose yesterday. (4) Poor dentition Status: Chronic Assessment & Plan: This could be the etiology of his recurrent infections. We have discussed the need to get his teeth repaired and the potential complications up to and including . He seemed to understand this very well. (5) HTN (hypertension) Status: Chronic Assessment & Plan: He is on chronic treatment with lisinopril, which has been restarted. We have also added clonidine. Monitor and further modification as needed. (6) Chronic pain Status: Chronic Assessment & Plan: He is on chronic treatment with Zanaflex and oxycodone. (7) Hypokalemia Status: Acute Assessment & Plan: Will replace with oral and IV supplements. Watch labs. Exam Sepsis Risk: Sepsis Risk Problem Qualifiers (1) DVT of upper extremity (deep vein thrombosis): Affected thrombotic vein of extremity: brachial Chronicity: acute Laterality: bilateral Qualified Codes: I82.623 - Acute embolism and thrombosis of deep veins of upper extremity, bilateral (2) HTN (hypertension): Hypertension type: essential hypertension Qualified Codes: I10 - Essential (primary) hypertension KIERSTEN VILLAVICENCIO MD May 11, 2018 09:50
[2018-05-11] MEDS: KCL/NS* 20 MEQ/1000 ML PREMIX 1,000 ML IV SCH (11:45)
[2018-05-11 15:04] VITALS: BP 163/105
--- NOTE | 2018-05-11 17:38 | General Surgery Progress Note ---
Subjective Progress Notes Subjective Better today but had abrupt increase in swelling, erythema and pain involving both arms last evening. Almost complete resolution in right arm with improvement in left. Physical Exam Vital Signs Date Time Temp Pulse Resp B/P (MAP) Pulse Ox O2 Delivery O2 Flow Rate FiO2 05/11/18 15:04 99.6 95 12 163/105 (124) 98 Room Air 05/09/18 06:00 2.0 Intake and Output 05/11/18 06:59 Intake Total 2825 ml Output Total 1800 ml Balance 1025 ml Intake Oral 1910 ml IV Total 915 ml Output Urine Total 1600 ml Emesis 200 ml # Voids 5 # Bowel Movements 1 # Emeses 1 General Appearance: Alert, Awake, No Acute Distress Neuro: No Gross deficits Extremities: Other (Right arm with minimal swelling and no erythema; Left arm with edema distal to elbow, erythema and induration dependent over ulnar surface proximally) Result Diagram: 05/11/1828 05/11/18527 Assessment and Plan Problems: (1) Poor dentition Status: Chronic (2) DVT of upper extremity (deep vein thrombosis) Status: Acute Assessment & Plan: 05/08/2018: has been on Xarleto but off for at least 24hrs. PTT is normal. Anti-Xa is therapeutic. INR 1.6. Will plan to use therapeutic Lovenox postoperatively in an attempt to avoid a central line given the need for anticoagulation and the presence of DVTs in both upper extremities. (3) Cellulitis of right upper extremity Status: Resolved (4) Abscess of left forearm Status: Acute Assessment & Plan: 05/08/2018: abscess in the left antecubital fossa. It appears to be more of an abscess than a septic thrombophlebitis based on that it is a fluid collection rather than tracking in the vein. There is an associated DVT in the basilic vein. Due to its size, I do not expect it to improve with antibiotics alone so will take him to the OR now for an I&D with cultures. I have discussed the plan and details with the patient and Dr. Bhakta. All are in agreement to proceed as described. Expect to be able to use his two peripheral IVs for antibiotics with rapid conversion to oral regimen. 05/09/2018: s/p drainage of abscess, gram stain suggestive of Strep. Removed coban pressure dressing which is likely cause of distal edema. Will change packing at bedside tomorrow. 05/10/2018: dressing changed, continue daily wet-to-dry dressings. Overall improving, leukocytosis resolved; transfer to med/surg. 05/11/2018: abscess site is drained, continues to have signs of cellulitis. continue to follow with management limited to abscess wound site. Exam Sepsis Risk: No Definite Risk Problem Qualifiers (1) DVT of upper extremity (deep vein thrombosis): Affected thrombotic vein of extremity: brachial Chronicity: acute Laterality: bilateral Qualified Codes: I82.623 - Acute embolism and thrombosis of deep veins of upper extremity, bilateral RODY JORDAN MD May 11, 2018 17:38
[2018-05-11 20:00] VITALS: BP 180/112
[2018-05-11 20:47] VITALS: BP 163/106
[2018-05-11] MEDS: ZOLPIDEM TARTRATE 10 MG TAB PO SCH (20:57)
[2018-05-11] MEDS: INSULIN GLARGINE 100 U/ML 3 ML PEN SUBQ SCH (20:58)
[2018-05-11 22:16] VITALS: BP 145/99
[2018-05-12] MEDS: ENOXAPARIN 100 MG/ML SYR SC SCH ×2 (02:11→14:41)
[2018-05-12] MEDS: oxyCODONE HCL 5 MG CAP PO PRN ×5 (02:11→20:50)
[2018-05-12] MEDS: VANCOMYCIN(*) 1 GM VIAL 1 GM, VANCOMYCIN (*) 0.5 GM VIAL 0.25 GM in NS(*) 0.9% 250 ML B... IVPB SCH ×3 (02:11→17:36)
[2018-05-12 02:17] VITALS: BP 148/100
[2018-05-12] MEDS: cefTRIAXone(*) 1 GM VIAL 1 GM in NS(*) 0.9% 100 ML ADDVANT BAG 100 ML IVPB SCH ×2 (03:45→16:19)
[2018-05-12 06:06] LABS: PLATELET COUNT, AUTOMATED 254 K/uL (150-450)
[2018-05-12] MEDS: SUCRALFATE 1 GM TAB PO SCH ×4 (06:18→20:48)
[2018-05-12] MEDS: PROMETHAZINE 25 MG/ML 1 ML AMP IVP PRN ×3 (06:19→20:48)
[2018-05-12] MEDS: KCL/NS* 20 MEQ/1000 ML PREMIX 1,000 ML IV SCH ×2 (07:38→22:24)
[2018-05-12 07:45] VITALS: BP 168/103
[2018-05-12] MEDS: INSULIN HUM LISPRO 100 UN/ML 3 ML VIAL SUBQ PRN ×4 (07:57→20:50)
[2018-05-12 08:18] VITALS: BP 180/117
[2018-05-12] MEDS: cloNIDine HCL 0.1 MG TAB PO SCH ×2 (09:00→20:48)
[2018-05-12] MEDS: PANTOPRAZOLE SOD 40 MG TABEC PO SCH ×2 (09:01→20:48)
[2018-05-12] MEDS: POTASSIUM CHL 20 MEQ TABCR PO SCH ×2 (09:01→17:32)
[2018-05-12] MEDS: LISINOPRIL 20 MG TAB PO SCH ×2 (09:01→20:48)
--- NOTE | 2018-05-12 11:50 | Hospitalist Progress Note ---
Subjective Progress Notes Subjective 43M admitted for bacteremia/sepsis. GREGG overnight, now afebrile. Discussed possible need for RIKA. Patient Complains of: Gastrointestinal: No Nausea, No Vomiting Physical Exam Vital Signs Date Time Temp Pulse Resp B/P (MAP) Pulse Ox O2 Delivery O2 Flow Rate FiO2 05/12/18 08:18 92 Room Air 05/12/18 08:18 98.8 102 14 180/117 (138) 05/09/18 06:00 2.0 Intake and Output 05/12/18 07:00 Intake Total 1685 ml Output Total 2450 ml Balance -765 ml Intake Oral 360 ml IV Total 1325 ml Output Urine Total 2450 ml # Voids 8 General Appearance: Alert, Awake, No Acute Distress, Afebrile Neuro: No Gross deficits Eyes: PERRLA ENT: Other (poor dentition) Cardiovascular: Normal Rhythm & Peripheral Pulses Respiratory: No Respiratory Distress GI: Soft and Non-Tender Extremities: Soft and Non Tender, Warm, Pulses, Perfused, Edema (b/l UE) Integumentary: Skin Intact without Lesion / Mass Psych: Alert & Oriented X3 Result Diagram: 05/12/18 0535 05/12/18 0535 Assessment and Plan Problems: (1) Abscess of left arm Assessment & Plan: He did undergo surgical I&D with Dr. Aragon on 05/08. A gram stain is showing gram positive cocci in chains from the wound and 2 of 2 blood cultures. He is currently on treatment with ceftriaxone and vancomycin. 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 Transthoracic echocardiogram did not show any specific valvular abnormalities. He has very poor dentition, but denies any specific mouth or neck soreness/swelling that would be worrisome for an abscess. Might need to do a CT of the head and neck to evaluate. WBC now normal, but had some fever and still tachycardic at times. If same bacteria grows would recommend transfer for RIKA and ID consultation. (2) DVT of upper extremity (deep vein thrombosis) Status: Acute Assessment & Plan: He was found to have clot in the left basilic vein (site of a PICC line in March) and also had an abscess in the left antecubital fossa. He is on full dose Lovenox and will likely need to remain on this until he can follow up with vascular surgery. Briefly discussed patient with Dr Velazquez, no current role unless excision of infected vein became necessary. (3) Type 2 diabetes mellitus Status: Chronic Assessment & Plan: He is on chronic treatment with Lantus and and NovoLog, but has been noncompliant with medications. He is currently receiving Lantus and sliding scale level #2. We increased the Lantus dose yesterday. (4) Poor dentition Status: Chronic Assessment & Plan: This could be the etiology of his recurrent infections. We have discussed the need to get his teeth repaired and the potential complications up to and including . He seemed to understand this very well. (5) HTN (hypertension) Status: Chronic Assessment & Plan: He is on chronic treatment with lisinopril, which has been restarted. We have also added clonidine. Monitor and further modification as needed. (6) Chronic pain Status: Chronic Assessment & Plan: He is on chronic treatment with Zanaflex and oxycodone. (7) Hypokalemia Status: Acute Assessment & Plan: Will replace with oral and IV supplements. Watch labs. Exam Sepsis Risk: No Definite Risk Problem Qualifiers (1) DVT of upper extremity (deep vein thrombosis): Affected thrombotic vein of extremity: brachial Chronicity: acute Laterality: bilateral Qualified Codes: I82.623 - Acute embolism and thrombosis of deep veins of upper extremity, bilateral (2) HTN (hypertension): Hypertension type: essential hypertension Qualified Codes: I10 - Essential (primary) hypertension MARCELLUS CASTANON DO May 12, 2018 11:50
[2018-05-12 12:30] VITALS: BP 182/106
--- NOTE | 2018-05-12 15:08 | Medical Nutrition Therapy ---
Nutrition Anthropometrics Height (Inches): 70.00 Height (Calculated Centimeters: 177.900575 Weight (Pounds): 214 Weight (Calculated Kilograms): 97.324 BMI: 30.7 [place] Nutrition Score: Probably Inadequate [place] Nutrition Risk Score: 19 Dietary Referral Nutrition Risk Factors: Unplanned Loss >10lbs Nutrition Risk Comment: LOST 40 # SINCE OCTOBER 2012 Physical Findings Physical Appearance: Obese BMI 30-39 Skin Appearance Skin Appearance: Edema Edema Location Modifier: Both Edema Location: Upper Extremity Type of Edema: Degree of Edema: Gastrointestinal Symptoms GI Symtoms: Nausea Tube Present: Bowel Sounds: Recent Bowel Pattern: Stool Characteristics: Nutritional Diagnosis Nutritional Risk Acuity 2: Abcess/Non-Healing Wound Nutritional Risk Acuity 4: Good Appetite Past Medical History: Hx of degenerative disc disease, spine surgery, hyperlipidemia, obesity, Gout, HTN, nephrolithiasis, T2DM. Nutritional Acuity: 2-Moderate Nutrition Diagnosis: Increased Nutrient Needs Nutrition Etiology: Physiological Causes Nutrition Problem/Etiology/Sym: Increased Nutrient Needs related to increased demand for nutrients secondary to wound healing and infection AEB low albumin status and abcess of ULE indicating increased stress and increased metabolic needs. Energy Requirement: 2430 (Lamar-St Jeor: Actual BW X 1.3) Protein Requirement: 78 (Actual BW Kg X .8) Fluid Requirement: 2430 Diet Type: Diabetic Nutrition Intervention: Cont diet as ordered, Check glucose Drug: Diuretics Diet Comment To RSA: Add protein powder supplement to appropriate foods. Nutrition Monitoring & Eval Nutrition Goals: Eat 75-100% Meal, Drink > 1500 cc/day RD Patient Assessment Time: [address] Assessment Type: RD Re-Assessment Patient Nutrition Acuity: 2-Moderate Follow Up Date: May 17, 2018 Nutritional Comment: 05/09/18 Pt admitted for DVT of upper extremity and abscess of left forearm. High WBC, Low H/H, Glu 274, Alb 3.2, Low Na+/K+. Class I obesity with BMI of 30.7. Receiving Lantus 30u q HS and Lispro SSI for diabetes management. History of poor dentation. Receiving diabetes diet with no reports of intake. Follow labs, intake, etc. -DRT 05/12 Pt. cont on Diabetic diet. BG decreased from when addmitted, but still very high at 247. Pt consuming 75 to 100% of meals on avg. Alb dropped to 2.6, recommend adding high protein diet. Na/K+ still low. Will keep following. ERLIN ROTHMAN May 12, 2018 12:34
[2018-05-12 16:15] VITALS: BP 169/101
[2018-05-12 19:29] VITALS: BP 189/109
[2018-05-12] MEDS: ZOLPIDEM TARTRATE 10 MG TAB PO SCH (20:48)
[2018-05-12] MEDS: INSULIN GLARGINE 100 U/ML 3 ML PEN SUBQ SCH (20:49)
[2018-05-13] MEDS: VANCOMYCIN(*) 1 GM VIAL 1 GM, VANCOMYCIN (*) 0.5 GM VIAL 0.25 GM in NS(*) 0.9% 250 ML B... IVPB SCH ×2 (01:20→10:20)
[2018-05-13] MEDS: oxyCODONE HCL 5 MG CAP PO PRN ×6 (01:20→23:49)
[2018-05-13] MEDS: ENOXAPARIN 100 MG/ML SYR SC SCH ×2 (01:20→13:44)
[2018-05-13 02:50] VITALS: BP 168/107
[2018-05-13] MEDS: cefTRIAXone(*) 1 GM VIAL 1 GM in NS(*) 0.9% 100 ML ADDVANT BAG 100 ML IVPB SCH (03:21)
[2018-05-13] MEDS: SUCRALFATE 1 GM TAB PO SCH ×4 (06:13→20:58)
[2018-05-13] MEDS: PROMETHAZINE 25 MG/ML 1 ML AMP IVP PRN ×4 (06:24→23:50)
[2018-05-13] MEDS: INSULIN HUM LISPRO 100 UN/ML 3 ML VIAL SUBQ PRN ×4 (07:43→20:55)
[2018-05-13] MEDS: PANTOPRAZOLE SOD 40 MG TABEC PO SCH ×2 (08:57→21:00)
[2018-05-13] MEDS: IBUPROFEN 600 MG TAB PO PRN ×2 (08:57→19:26)
[2018-05-13] MEDS: POTASSIUM CHL 20 MEQ TABCR PO SCH ×2 (08:57→17:27)
[2018-05-13] MEDS: cloNIDine HCL 0.1 MG TAB PO SCH ×2 (08:57→20:59)
[2018-05-13] MEDS: LISINOPRIL 20 MG TAB PO SCH ×2 (08:57→20:58)
[2018-05-13] MEDS: INSULIN GLARGINE 100 U/ML 3 ML PEN SUBQ SCH ×2 (08:58→20:57)
--- NOTE | 2018-05-13 10:34 | Hospitalist Progress Note ---
Subjective Progress Notes Subjective This patient was admitted for cellulitis and DVT of the left arm. He had no acute events overnight. Patient Complains of: Cardiovascular: No: Chest Pain Respiratory: No: Shortness of Breath Physical Exam Vital Signs Date Time Temp Pulse Resp B/P (MAP) Pulse Ox O2 Delivery O2 Flow Rate FiO2 05/13/18 02:50 98.7 98 18 168/107 (127) 94 Nasal Cannula 2.0 Intake and Output 05/13/18 06:59 Intake Total 1987 ml Output Total 1101 ml Balance 886 ml Intake Oral 622 ml IV Total 1365 ml Output Urine Total 1101 ml # Voids 4 # Bowel Movements 1 Cardiovascular: Regular Rate and Rhythm Respiratory: Clear to Auscultation Result Diagram: 05/12/18 0535 05/12/18 0535 Item Value Date Time Gram Stain - Final Complete 05/08/18 2330 Abscess Arm Blood Culture - Final Complete 05/08/18 1552 Blood Peripheral Draw Blood Culture - Final Complete 05/08/18 1552 Blood Peripheral Draw Assessment and Plan Problems: (1) Abscess of left arm Assessment & Plan: He did undergo surgical I&D with Dr. Aragon on 05/08. A gram stain is showing gram positive cocci in chains from the wound and 2 of 2 blood cultures. He is currently on treatment with ceftriaxone and vancomycin. 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 Transthoracic echocardiogram did not show any specific valvular abnormalities. He has very poor dentition, but denies any specific mouth or neck soreness/swelling that would be worrisome for an abscess. The current plan is that we will treat him as if he had bacterial endocarditis. He is currently on vancomycin, but will be switching to ceftriaxone and an additional agent for synchrony. Pharmacy is evaluating the appropriate doses, but he will likely need 6 weeks of IV antibiotics. (2) DVT of upper extremity (deep vein thrombosis) Status: Acute Assessment & Plan: He was found to have clot in the left basilic vein (site of a PICC line in March) and also had an abscess in the left antecubital fossa. He is on full dose Lovenox and will likely need to remain on this until he can follow up with vascular surgery. (3) Type 2 diabetes mellitus Status: Chronic Assessment & Plan: He is on chronic treatment with Lantus and and NovoLog, but has been noncompliant with medications. He is currently receiving Lantus and sliding scale level #2. We increased the Lantus dose yesterday. (4) Poor dentition Status: Chronic Assessment & Plan: This could be the etiology of his recurrent infections. We have discussed the need to get his teeth repaired and the potential complications up to and including . He seemed to understand this very well. (5) HTN (hypertension) Status: Chronic Assessment & Plan: He is on chronic treatment with lisinopril, which has been restarted. We have also added clonidine. Monitor and further modification as needed. (6) Chronic pain Status: Chronic Assessment & Plan: He is on chronic treatment with Zanaflex and oxycodone. (7) Hypokalemia Status: Acute Assessment & Plan: Will replace with oral and IV supplements. Watch labs. Exam Sepsis Risk: No Definite Risk Problem Qualifiers (1) DVT of upper extremity (deep vein thrombosis): Affected thrombotic vein of extremity: brachial Chronicity: acute Laterality: bilateral Qualified Codes: I82.623 - Acute embolism and thrombosis of deep veins of upper extremity, bilateral (2) HTN (hypertension): Hypertension type: essential hypertension Qualified Codes: I10 - Essential (primary) hypertension ELVIS OLEARY DO May 13, 2018 10:34
[2018-05-13 11:52] VITALS: BP 142/96
[2018-05-13] MEDS: KCL/NS* 20 MEQ/1000 ML PREMIX 1,000 ML IV SCH ×2 (12:05→23:15)
[2018-05-13 15:10] VITALS: BP 167/116
[2018-05-13] MEDS: cefTRIAXone(*) 2 GM VIAL 2 GM in NS(*) 0.9% 100 ML ADDVANT BAG 100 ML IVPB SCH (16:38)
[2018-05-13 19:42] VITALS: BP 182/120
[2018-05-13] MEDS: ZOLPIDEM TARTRATE 10 MG TAB PO SCH (21:00)
[2018-05-14 00:05] VITALS: BP 182/107
[2018-05-14] MEDS: ENOXAPARIN 100 MG/ML SYR SC SCH ×2 (01:49→13:30)
[2018-05-14 02:09] VITALS: BP 160/95
[2018-05-14] MEDS: oxyCODONE HCL 5 MG CAP PO PRN ×5 (05:19→22:01)
[2018-05-14 05:20] VITALS: BP 178/95
[2018-05-14] MEDS: SUCRALFATE 1 GM TAB PO SCH ×4 (05:20→21:00)
[2018-05-14] MEDS: IBUPROFEN 600 MG TAB PO PRN ×3 (05:20→22:05)
[2018-05-14 06:19] LABS: PLATELET COUNT, AUTOMATED 296 K/uL (150-450)
[2018-05-14 07:18] VITALS: BP 165/112
[2018-05-14] MEDS: POTASSIUM CHL 20 MEQ TABCR PO SCH ×2 (07:23→17:00)
[2018-05-14] MEDS: INSULIN HUM LISPRO 100 UN/ML 3 ML VIAL SUBQ PRN ×3 (07:24→16:00)
[2018-05-14] MEDS: LISINOPRIL 20 MG TAB PO SCH ×2 (09:13→22:01)
[2018-05-14] MEDS: cloNIDine HCL 0.1 MG TAB PO SCH ×2 (09:13→22:00)
[2018-05-14] MEDS: PANTOPRAZOLE SOD 40 MG TABEC PO SCH ×2 (09:13→22:00)
[2018-05-14] MEDS: INSULIN GLARGINE 100 U/ML 3 ML PEN SUBQ SCH ×2 (09:14→22:08)
--- NOTE | 2018-05-14 10:07 | Hospitalist Progress Note ---
Subjective Progress Notes Subjective He reports feeling improved. Still some low grade fever. Physical Exam Vital Signs Date Time Temp Pulse Resp B/P (MAP) Pulse Ox O2 Delivery O2 Flow Rate FiO2 05/14/18 07:26 94 Room Air 05/14/18 07:18 98.0 79 18 165/112 (129) 05/14/18 02:09 1.0 Intake and Output 05/14/18 06:59 Intake Total 3794 ml Output Total 2825 ml Balance 969 ml Intake Oral 1421 ml IV Total 2373 ml Output Urine Total 2825 ml # Voids 3 General Appearance: Alert, Awake Cardiovascular: Regular Rate and Rhythm Respiratory: Clear to Auscultation GI: Soft and Non-Tender Extremities: Other (left antecubital wound appears clean with minimal bloody drainage/surrounding erythema resolved) Psych: Alert & Oriented X3 Result Diagram: 05/14/18 0548 05/14/18 0548 Assessment and Plan Problems: (1) Abscess of left arm Assessment & Plan: He did undergo surgical I&D with Dr. Aragon on 05/08. His wound culture and 2 of 2 blood cultures are all growing Strep anginosus. He is currently on treatment with IV ceftriaxone. He did grow the same streptococcus anginosus from his blood cultures in March of this year. Transthoracic echocardiogram did not show any specific valvular abnormalities. He has very poor dentition, but denies any specific mouth or neck soreness/swelling that would be worrisome for an abscess. The current plan is that we will treat him as if he has bacterial endocarditis. Pharmacy has evaluated the regimens and it appears he will need 4 weeks of IV Rocephin. He is a difficult case as he would be a risk for DVT if a central venous access was placed for his IV antibiotics as well as risk for bleeding with his full anticoagulation. At this time, we do have peripheral access and it may be anderson to plan on using peripheral access through his full course if at all possible. (2) DVT of upper extremity (deep vein thrombosis) Status: Acute Assessment & Plan: He was found to have clot in the left basilic vein (site of a PICC line in March) in addition to the abscess in the left antecubital fossa. This occurred while he was on Xarelto. He is currently on full dose Lovenox and will likely need to remain on this until he can follow up with vascular surgery (regarding the possibility of thoracic outlet syndrome). Will check hypercoagulable studies. (3) Type 2 diabetes mellitus Status: Chronic Assessment & Plan: He is on chronic treatment with Lantus and and NovoLog, but has been noncompliant with medications. He is currently receiving Lantus and sliding scale level #2. (4) Poor dentition Status: Chronic Assessment & Plan: This could be the etiology of his recurrent infections. We have discussed the need to get his teeth repaired and the potential complications up to and including . He seemed to understand this very well. Timing of taking care of his dentition is problematic as he requires full anticoagulation and should probably not be off the Lovenox for more than a day until his potential thoracic outlet syndrome (and/or hypercoagulable syndrome has been addressed). (5) HTN (hypertension) Status: Chronic Assessment & Plan: He is on chronic treatment with lisinopril, which has been restarted. We have also added clonidine. Monitor and further modification as needed. (6) Chronic pain Status: Chronic Assessment & Plan: He is on chronic treatment with Zanaflex and oxycodone. (7) Hypokalemia Status: Acute Assessment & Plan: Resolved with oral and IV supplements. Watch labs. Exam Sepsis Risk: No Definite Risk Problem Qualifiers (1) DVT of upper extremity (deep vein thrombosis): Affected thrombotic vein of extremity: brachial Chronicity: acute Lat erality: bilateral Qualified Codes: I82.623 - Acute embolism and thrombosis of deep veins of upper extremity, bilateral (2) HTN (hypertension): Hypertension type: essential hypertension Qualified Codes: I10 - Essential (primary) hypertension KIERSTEN VILLAVICENCIO MD May 14, 2018 10:07
[2018-05-14] MEDS: NS(*) 0.9% 500 ML BAG 500 ML IV PRN (11:29)
[2018-05-14 14:41] VITALS: BP 162/100
[2018-05-14] MEDS: cefTRIAXone(*) 2 GM VIAL 2 GM in NS(*) 0.9% 100 ML ADDVANT BAG 100 ML IVPB SCH (15:18)
[2018-05-14 20:06] VITALS: BP 182/121
[2018-05-14] MEDS: ZOLPIDEM TARTRATE 10 MG TAB PO SCH (22:01)
[2018-05-15] MEDS ORDERED: ENOXAPARIN 100 MG/ML SYR SC SCH
[2018-05-15 00:14] VITALS: BP 181/142
[2018-05-15] MEDS: INSULIN HUM LISPRO 100 UN/ML 3 ML VIAL SUBQ PRN ×3 (00:20→13:05)
[2018-05-15] MEDS: ENOXAPARIN 100 MG/ML SYR SC SCH ×2 (02:16→15:09)
[2018-05-15] MEDS: oxyCODONE HCL 5 MG CAP PO PRN ×4 (02:18→15:36)
[2018-05-15] MEDS: PROMETHAZINE 25 MG/ML 1 ML AMP IVP PRN ×2 (02:19→13:06)
[2018-05-15] MEDS: SUCRALFATE 1 GM TAB PO SCH ×2 (05:41→11:34)
[2018-05-15] MEDS: NS(*) 0.9% 500 ML BAG 500 ML IV PRN (06:14)
[2018-05-15] MEDS: IBUPROFEN 600 MG TAB PO PRN (06:14)
[2018-05-15 06:25] LABS: PLATELET COUNT, AUTOMATED 328 K/uL (150-450)
[2018-05-15 07:09] VITALS: BP 143/98
[2018-05-15] MEDS: PANTOPRAZOLE SOD 40 MG TABEC PO SCH (08:27)
[2018-05-15] MEDS: LISINOPRIL 20 MG TAB PO SCH (08:27)
[2018-05-15] MEDS: POTASSIUM CHL 20 MEQ TABCR PO SCH (08:27)
[2018-05-15] MEDS: INSULIN GLARGINE 100 U/ML 3 ML PEN SUBQ SCH (08:27)
[2018-05-15] MEDS: cloNIDine HCL 0.1 MG TAB PO SCH (08:27)
[2018-05-15] MEDS ORDERED: HYDR-4225 PO (12:04)
[2018-05-15] MEDS ORDERED: CLON-329 PO (13:46)
[2018-05-15] MEDS ORDERED: OXYC20TA61 PO (13:49)
[2018-05-15] MEDS ORDERED: HYDR12.561 PO (13:56)
[2018-05-15] MEDS ORDERED: CEFT2FRO4 IV ×2 (14:00→14:03)
[2018-05-15] MEDS ORDERED: ENOX100D5 SC (14:56)
[2018-05-15] MEDS ORDERED: PANT40TA65 PO (14:56)
[2018-05-15] MEDS ORDERED: SUCR1TAB51 PO (14:56)
[2018-05-15 15:06] VITALS: BP 176/110
--- NOTE | 2018-05-15 15:24 | Hospitalist Depart ---
Discharge Summary Reason for Hosp/Final Diag: (1) Abscess of left arm Hospital Course & Plan: The patient presented with swelling and redness of his right forearm. He did undergo surgical I&D with Dr. Aragon on 05/08. His wound culture and 2 of 2 blood cultures grew Strep anginosus. He was started on treatment with IV ceftriaxone 2g daily. He did grow the same streptococcus anginosus from his blood cultures in March of this year (see previous hospital record). Transthoracic echocardiogram did not show any specific valvular abnormalities. RIKA was not available. He has very poor dentition, but denied any specific mouth or neck soreness/swelling that would be worrisome for an abscess. A plan was formulated to treat him as if he had bacterial endocarditis. Pharmacy has evaluated the regimens and it appears he will need 4 weeks of IV Rocephin. He is a difficult case as he would be a risk for DVT if a central venous access was placed for his IV antibiotics as well as risk for bleeding with his full anticoagulation. At this time, we do have peripheral access and it may be anderson to plan on using peripheral access through his full course if possible. (2) DVT of upper extremity (deep vein thrombosis) Status: Acute Hospital Course & Plan: The patient was found to have clot in the left basilic vein (site of a PICC line in March). In addition, he was found to have an abscess in the left antecubital fossa. The left basilic vein clot occurred while he was on Xarelto. He was switched to full dose Lovenox and will likely need to remain on this until he can follow up with vascular surgery (regarding the possibility of thoracic outlet syndrome). Hypercoagulable studies were ordered and results were pending at the time of this notation. (3) Type 2 diabetes mellitus Status: Chronic Hospital Course & Plan: The patient is on chronic treatment with Lantus and and NovoLog, but had been noncompliant with medications. He was placed on Lantus 30u at HS and 10u q am plus sliding scale level #2 during his inpatient stay with moderate control of his blood sugars. (4) Poor dentition Status: Chronic Hospital Course & Plan: The patient has poor dentition which was felt to likely be the etiology of his recurrent infections. It was strongly recommended that he get his teeth repaired and the potential complications of not doing so were discussed up to and including . He seemed to understand this very well. Timing of taking care of his dentition will be problematic as he requires full anticoagulation and should probably not be off the Lovenox for more than a day until his potential thoracic outlet syndrome (and/or hypercoagulable syndrome has been addressed). (5) HTN (hypertension) Status: Chronic Hospital Course & Plan: He was continued on chronic treatment with lisinopril and clonidine. The patient had been prescribed clonidine 0.2mg tablets, 2 tabs po tid, as an outpatient but had been taking them twice daily most often at home. It was discovered that he had also been taking HCTZ 12.5mg bid as an outpatient as well and he was instructed to restart the HCTZ at discharge. (6) Chronic pain Status: Chronic Hospital Course & Plan: He was continued on chronic treatment with Zanaflex and oxycodone. His most recent outpatient RX for oxycodone was noted to be 20mg tablets to be taken 5 times daily. He was given 5-10mg q4-6 hours during his inpatient stay. (7) Hypokalemia Status: Acute Hospital Course & Plan: Resolved with oral and IV supplements. Departure Weight (Pounds): 214 Weight (Ounces): 9.0 Result Diagram: 05/15/1853405/15/18 0535 Item Value Date Time Calcium Level 8.5 mg/dl 05/15/18 0535 Total Bilirubin 0.1 mg/dl L 05/15/18 0535 Aspartate Amino Transf (AST/SGOT) 11 U/L 05/15/18 0535 Alanine Aminotransferase (ALT/SGPT) 20 U/L 05/15/18 0535 Alkaline Phosphatase 79 U/L 05/15/18 0535 Total Protein 5.6 g/dl L 05/15/18 0535 Albumin 2.8 g/dl L 05/15/18 0535 Whole Blood Glucose 136 mg/DL H 05/14/182015 Whole Blood Glucose 252 mg/DL H 05/15/18 0012 Whole Blood Glucose 226 mg/DL H 05/15/18 0423 Random Glucose 199 mg/dl H 05/15/18 0535 Whole Blood Glucose 123 mg/DL H 05/15/18 0825 TWO OUT OF TWO BLOOD CULTURES AND WOUND CULTURE ALL GREW BACTERIA BELOW: [facility]* [address] [place] [address] KERRY HUTCHINSON M.D., DIRECTOR OF LABORATORY SERVICES MARCELLUS ROTHMAN M.D., PATHOLOGIST RUN DATE: 05/13/18 Specimen Inquiry Report PAGE 1 RUN TIME: 1010 PATIENT: SINDHU METZ ACCT: [id number] LOC: [facility] U: [id number] AGE/SX: 43/M ROOM: [facility] RE05/08/[address]: KIERSTEN VILLAVICENCIO MD : 1975 BED: 278 DI S: STATUS: ADM IN TLOC: - SPEC #: [id number] CHRIS: 05/08/18 STATUS: COMP REQ #: [id number] RECD: 05/08/[address]: MIRIAM SCHREIBER DO SOURCE: BLOOD PER ENTR: 05/08/18-[address]: SHELLI CASTANEDA SENIOR [employer] NET DEVELOPER SPDESC: ORDERED: BCGS, CULT BLOOD Procedure Result Verified BLOOD CULTURE GRAM STAIN Final 05/10/18-535 AEROBIC BOTTLE POSITIVE (PEDIATRIC BOTTLE) GRAM POSITIVE COCCI IN CHAINS POSITIVE BLOOD CULTURE GRAM STAIN REPORT CALLED TO: LAURIE ZHONG RN-ICU DATE/TIME REPORT CALLED: 05/10/18 @ 0534 CALLED BY: SANAM MCKENNA MT BLOOD CULTURE Final 05/13/18-1010 Organism 1 STREPTOCOCCUS ANGINOSUS GROWTH PRESENT IN BOTH THE AEROBIC AND ANAEROBIC BOTTLES Positive BLOOD CULTURE workup in progress. Report to follow. * This is a updated result. * A prior result that was reported as final has been changed.@ Old result entered: by [email or web address] Old result verified: by [email or web address] New result added: by EMMANUEL RESULTS CALLED TO AND READ BACK BY (FIRST & LAST NAME, CREDENTIALS) ALVERTO Becerril RX --------- --- AMPICILLIN <=0.25 S CEFOTAXIME <=0.12 S CEFTRIAXONE S CLINDAMYCIN <=0.25 S ERYTHROMYCIN <=0.12 S LINEZOLID <=2 S BENZYLPENICILLIN S VANCOMYCIN 0.5 S END OF REPORT Imaging ECHO REPORT SUMMARY 05/09/2018 (For entire report see complete hospital record) INTERPRETATION SUMMARY: Considering 2D visualization and technical calculations the left ventricular EF estimate is 65-70%. Right ventricular systolic pressure is normal. The patient was tachycardic during the exam with a heart rate exceeding 100bpm. There is no significant valve disease. Compared to prior study, there is no significant change. FACILITY: [facility] PATIENT NAME: Sindhu Metz : 1975 MR: [id number] V: [id number] EXAM DATE: [id number] ORDERING PHYSICIAN: MIRIAM SCHREIBER TECHNOLOGIST: Location: [facility] Patient: Sindhu Metz : 1975 Visit/Account:[id number] Date of Sevice: 05/08/2018 ABDOMEN/PELVIS WITH CONTRAST Additional pertinent History: Abdominal pain TECHNIQUE: Spiral scan was through the abdomen and pelvis during injection of nonionic iodinated intravenous contrast. Contrast: 75 mL of IV Isovue-370. COMPARISON STUDIES: CT scan from 08/10/2014 One of the following dose optimization techniques was utilized in the performance of this exam: Automated exposure control; adjustment of the mA and/or kV according to the patient's size; or use of an iterative reconstructi on technique. Specific details can be referenced in the facility's radiology CT exam operational policy.. FINDINGS: Liver / biliary: Small hypoattenuated lesion in the medial segment left lobe of liver too small to characterize. Pancreas: negative Spleen: negative Adrenal glands: negative Kidneys / retroperitoneum: 1 cm cyst seen within both kidneys. No renal stone. No renal obstructive uropathy change. Pelvic structures: Bladder is unremarkable. Bowel / peritoneum / mesenteries: No colonic mass lesions. No bowel inflammation. There appears to be greater degree of luminal narrowing of the duodenum as it passes anterior to the aorta with upstream dilated fluid-filled duodenum relative to the distal duodenum and proximal small bowel loops (axial images 73 through 70 series 2). This is well beyond the origin of the SMA and does not appear to represent an SMA "nutcracker" syndrome. The appearance is, however, different than the study from 2014. No obvious source for this "na rrowing "readily apparent on this exam. Appendix normal with no evidence of appendicitis. Vessels: No aneurysmal dilatation. Musculoskeletal / Body wall: No acute bony pathology. Lymph node assessment: No pathologic lymph nodes. Lower chest: negative IMPRESSION: 1. Negative CT scan for acute intra-abdominal or pelvic pathology. No interval change when compared to previous study other than the apparent luminal narrowing of the third portion the duodenum as it crosses anterior to the aorta. The significance is uncertain but it does appear to be resulting in upstream dilated fluid-filled second portion of the duodenum. 2. Stable appearing liver cysts. Report Dictated By: Amish Lopez MD at 05/08/2018 5:11 PM Report E-Signed By: Amish Lopez MD at 05/08/2018 5:25 PM WSN:[facility] FACILITY: [facility] PATIENT NAME: Sindhu Metz : 1975 MR: [id number] V: [id number] EXAM DATE: ORDERING PHYSICIAN: MIRIAM SCHREIBER TECHNOLOGIST: Location: [facility] Patient: Sindhu Metz : 1975 Visit/Account:[id number] Date of Sevice: 05/08/2018 VENOUS DOPP UPPER LEFT EXTREMI HISTORY: left arm mass, dvt? ADDITIONAL HISTORY: Right arm with "lump" of the medial aspect of the elbow. Post fall. Previous DVT in right basilic. PICC line in left arm five weeks prior. COMPARISON: Right arm ultrasound from 04/01/2018 FINDINGS: Grayscale compression, duplex and color Doppler interrogation of the left upper extremity veins was performed. Jugular vein - patent Subclavian vein - Negative. Axillary vein - Negative. Basilic vein - clot seen in the mid to distal basilic vein extending across the elbow joint. Cephalic vein - Negative. Brachial veins - Negative. At the point of palpable concern in the medial elbow there is a ill-defined heterogenous fluid collection without vascularity. This likely represents a hematoma considering history of trauma IMPRESSION: 1. Clot within the basilic vein in the left arm in its mid to distal aspect e xtending across the elbow joint. 2. Palpable area of concern corresponds to an ill-defined fluid collection likely representing evolving hematoma measuring approximately 2.5 cm in size. Report Dictated By: Amish Lopez MD at 05/08/2018 5:03 PM Report E-Signed By: Amish Lopez MD at 05/08/2018 5:11 PM WSN:[facility] FACILITY: [facility] PATIENT NAME: Sindhu Metz : 1975 MR: [id number] V: [id number] EXAM DATE: ORDERING PHYSICIAN: MIRIAM SCHREIBER TECHNOLOGIST: Location: [facility] Patient: Sindhu Metz : 1975 Visit/Account:[id number] Date of Sevice: 05/08/2018 ABDOMEN/PELVIS WITH CONTRAST Additional pertinent History: Abdominal pain TECHNIQUE: Spiral scan was through the abdomen and pelvis during injection of nonionic iodinated intravenous contrast. Contrast: 75 mL of IV Isovue-370. COMPARISON STUDIES: CT scan from 08/10/2014 One of the following dose optimization techniques was utilized in the performance of this exam: Automated exposure control; adjustment of the mA and/or kV according to the patient's size; or use of an iterative rec onstruction technique. Specific details can be referenced in the facility's radiology CT exam operational policy.. FINDINGS: Liver / biliary: Small hypoattenuated lesion in the medial segment left lobe of liver too small to characterize. Pancreas: negative Spleen: negative Adrenal glands: negative Kidneys / retroperitoneum: 1 cm cyst seen within both kidneys. No renal stone. No renal obstructive uropathy change. Pelvic structures: Bladder is unremarkable. Bowel / peritoneum / mesenteries: No colonic mass lesions. No bowel inflammation. There appears to be greater degree of luminal narrowing of the duodenum as it passes anterior to the aorta with upstream dilated fluid-filled duodenum relative to the distal duodenum and proximal small bowel loops (axial images 73 through 70 series 2). This is well beyond the origin of the SMA and does not appear to represent an SMA "nutcracker" syndrome. The appearance is, however, different than the study from 2014. No obvious source for this "narrowing "readily apparent on this exam. Appendix normal with no evidence of appendicitis. Vessels: No aneurysmal dilatation. Musculoskeletal / Body wall: No acute bony pathology. Lymph node assessment: No pathologic lymph nodes. Lower chest: negative IMPRESSION: 1. Negative CT scan for acute intra-abdominal or pelvic pathology. No interval change when compared to previous study other than the apparent luminal narrowing of the third portion the duodenum as it crosses anterior to the aorta. The significance is uncertain but it does appear to be resulting in upstream dilated fluid-filled second portion of the duodenum. 2. Stable appearing liver cysts. Report Dictated By: Amish Lopez MD at 05/08/2018 5:11 PM Report E-Signed By: Amish Lopez MD at 05/08/2018 5:25 PM WSN:[facility] FACILITY: [facility] PATIENT NAME: Sindhu Metz : 1975 MR: [id number] V: [id number] EXAM DATE: ORDERING PHYSICIAN: MIRIAM SCHREIBER TECHNOLOGIST: Condition: Improved Discharge: Home, Self Care Time Spent: < 30 min Discharge Instructions Home Meds Active Scripts Enoxaparin Sodium (LOVENOX) 100 Mg/1 Ml Disp.syrin, 100 MG SC Q12H@0200,1400, #60 UNITS 2 Refills Prov:SELENE VILLAVICENCIO MD 05/15/18 Pantoprazole Sodium (PANTOPRAZOLE SODIUM) 40 Mg Tablet.dr, 40 MG PO BID, #60 TAB 3 Refills Prov:SELENE VILLAVICENCIO MD 05/15/18 Sucralfate (SUCRALFATE) 1 Gm Tablet, 1 GM PO ACHS1, #28 TAB Prov:SELENE VILLAVICENCIO MD 05/15/18 Ceftriaxone Na/Dextrose,Iso (CEFTRIAXONE 2 GM PIGGYBACK) 2 Gm/50 Ml Froz.piggy, 2 GM IV DAILY, #20 UNITS Prov:SELENE VILLAVICENCIO MD 05/15/18 Ibuprofen (IBUPROFEN) 600 Mg Tablet, 600 MG PO Q8H PRN for PAIN, #30 TAB Prov:ELVIS OLEARY DO 04/03/18 Lancets (Blood Lancets) 30 Gauge Each, EACH, #100 Prov:ELVIS OLEARY DO 06/04/17 Blood Sugar Diagnostic (GLUCOSE TEST STRIP) 1 Each Strip, 1 EACH QID, #100 STRIP Prov:ELVIS OLEARY DO 06/04/17 Tinnie, Insulin Disposable (INSULIN PEN NEEDLE) 1 Each Dis.needle, EACH MC QID, #100 Prov:ELVIS OLEARY DO 06/04/17 Reported Medications Ceftriaxone Na/Dextrose,Iso (CEFTRIAXONE 2 GM PIGGYBACK) 2 Gm/50 Ml Froz.piggy, 2 GM IV DAILY 05/15/18 Hydrochlorothiazide (HYDROCHLOROTHIAZIDE) 12.5 Mg Tablet, 1 TAB PO BID 05/15/18 Oxycodone Hcl 20 Mg Tab (OXYCODONE HCL 20 MG TAB) 20 Mg Tablet, 1 TAB PO 5XD 05/15/18 Clonidine Hcl (CLONIDINE HCL) 0.2 Mg Tablet, 2 TAB PO TID Patient takes 2 tabs bid daily and adds a dose midday if his BP is high. 05/15/18 Hydroxyzine Hcl (HYDROXYZINE HCL) 25 Mg Tablet, 1 TAB PO QID 05/15/18 Insulin Aspart (NOVOLOG) 100 Unit/Ml Soln, 3 UNITS SUBQ TID Before meals. 01/10/18 Lisinopril (LISINOPRIL) 40 Mg Tablet, 40 MG PO BID, TAB 05/31/17 Tizanidine Hcl (TIZANIDINE HCL) 2 Mg Capsule, 4 MG PO QID, CAPSULE 03/26/17 Discontinued Reported Medications Rivaroxaban 20 Mg (XARELTO 20 MG) 20 Mg Tablet, 20 MG PO, TAB 05/08/18 Aspirin (ASPIRIN) 81 Mg Tab.chew, 81 MG PO QDAY, TAB.CHEW TAKE 1 TABLET BY MOUTH EVERY DAY 08/10/14 Discontinued Scripts Insulin Glargine 100 Un/Ml Pen (LANTUS SOLOSTAR PEN) 100 Unit/1 Ml Insuln.pen, 28 UNIT SUBQ QHS, #10 ML Prov:ELVIS OLEARY DO 04/03/18 Ceftriaxone Sodium (CEFTRIAXONE) 2 Gm Vial, 2 GM IV QDAY, #14 VIAL Prov:ELVIS OLEARY DO 04/03/18 Oxycodone Hcl (OXYCODONE HCL) 5 Mg Capsule, 2 TAB PO Q6H PRN for PAIN, #30 CAPSULE Prov:ELVIS OLEARY DO 04/03/18 Rivaroxaban (XARELTO 10 MG TAB (OR EQUIV)) 10 Mg Tablet, 15 MG PO BID for 21 Days, #62 TAB Take 15mg BID for 21 days then take 20mg daily until instructed to stop. Prov:MARCELLUS CASTANON DO 04/01/18 Diet: Regular Activity: As Tolerated Special Instructions: 1. The patient is to have his IV ceftriaxone administered daily through [facility] (or other facility) for 20 days. Arrangements have been made to facilitate treatment through [facility]. 2. The patient is to see a dentist for evaluation and treatment to prevent recurrent issues with systemic infection. 3. The patient is to change his wound dressing daily and will follow up with his PCP on Thursday for recheck. May shower but is to wrap dressing in Saran Wrap and replace dressing if it becomes wet. 4. The patient is to self-administer Lovenox twice daily for treatment of his DVTs. TO CLARIFY MEDICATION DISCHARGE INSTRUCTIONS ABOVE, IGNORE THE DISCONTINUED REPORTED MEDICATIONS AND DISCONTINUED SCRIPTS SECTIONS. THE CURRENT MEDICATIONS ARE LISTED UNDER ACTIVE SCRIPTS AND REPORTED MEDICATIONS. Copies to: SHELLI CASTANEDA SENIOR ASP NET DEVELOPER ; Venous Thromboembolism Antithrombotics Is Pt On Any Antithrombotics?: Yes Problem Qualifiers (1) DVT of upper extremity (deep vein thrombosis): Affected thrombotic vein of extremity: brachial Chronicity: acute Laterality: bilateral Qualified Codes: I82.623 - Acute embolism and thrombosis of deep veins of upper extremity, bilateral (2) HTN (hypertension): Hypertension type: essential hypertension Qualified Codes: I10 - Essential (primary) hypertension SELENE VILLAVICENCIO MD May 15, 2018 15:24
[2018-05-15] MEDS: cefTRIAXone(*) 2 GM VIAL 2 GM in NS(*) 0.9% 100 ML ADDVANT BAG 100 ML IVPB SCH (15:25)
== END 2018-05-15 17:17 | disposition home or self-care (01) | DRG 603 ==
LOC: ER 15:27 → ICU 18:52 → MED 05-10 18:45
PROVIDERS: ADMIT Internal Medicine; ATTEND Internal Medicine
DX: L02.414 Cutaneous abscess of left upper limb (principal); I82.622 Acute embolism and thrombosis of deep veins of left upper extremity; B95.4 Other streptococcus as the cause of diseases classified elsewhere; M51.36 Other intervertebral disc degeneration, lumbar region; E11.9 Type 2 diabetes mellitus without complications; E78.5 Hyperlipidemia, unspecified; M1A.9XX0 Chronic gout, unspecified, without tophus (tophi); E87.6 Hypokalemia; I10 Essential (primary) hypertension; K02.9 Dental caries, unspecified; G89.29 Other chronic pain; Z79.01 Long term (current) use of anticoagulants; Z88.8 Allergy status to other drugs, medicaments and biological substances; Z79.4 Long term (current) use of insulin
CPT/HCPCS: 36415; 36416; 74177; 80202; 81001; 81241; 81291; 82040; 82247; 82310; 82374; 82435; 82565; 82947; 82948; 83090; 83605; 83690; 83735; 84075; 84132; 84155; 84295; 84450; 84460; 84520; 85025; 85300; 85303; 85306; 85520; 85610; 85730; 86147; 87040; 87071; 87073; 87077; 87186; 87205; 93306; 96361; 96365; 96366; 96367; 96375; 96376; 99285; J0696; J1644; J1650; J1815; J1885; J2001; J2250; J2270; J2405; J2550; J2704; J3010; J3370; J3480; J3490; J7030; J7040; J7050; Q9967

== ENCOUNTER 2018-05-18 05:41 | Outpatient (RCR) | payer MEDICARE, MEDICAID ==
[2018-05-09 13:42] VITALS: BMI 30.7
[~2018-05-18 05:41] MED LIST changes: +CEFT2FRO4 IV; +DEXTROSE 5%(*) 100 ML BAG 100 ML IVPB PRN; +ENOX100D5 SC; +LIDOCAINE/SOD BICARB 8.4% SYR ID PRN; +NS(*) 0.9% 100 ML BAG 100 ML IVPB PRN; +PANT40TA65 PO; +RIVA20TA PO; +SUCR1TAB51 PO; +cefTRIAXone(*) 2 GM VIAL 2 GM in NS(*) 0.9% 100 ML ADDVANT BAG 100 ML IVPB SCH
[2018-05-18] MEDS ORDERED: cefTRIAXone(*) 2 GM VIAL 2 GM in NS(*) 0.9% 100 ML ADDVANT BAG 100 ML IVPB PRN (06:50)
== END 2018-06-02 12:13 | disposition home or self-care (01) ==
LOC: SPU 05:41
PROVIDERS: ATTEND Internal Medicine
DX: Z02.9 Encounter for administrative examinations, unspecified (principal)